=== PATIENT | female | born 1930 | race Caucasian/White ===

== ENCOUNTER 2016-04-22 10:50 | Emergency (ER) | payer MEDICAID, MEDICARE ==
[~2016-04-22 10:50] MED LIST: APIX2.5T PO; METO25TA6 PO; OXYC5TAB72 PO; ROB500 PO; TRIA1CAP5 PO; VITA-251 PO; ZYL100 PO
--- NOTE | 2016-04-22 10:58 | ED.REPORT ---
HPI-General Illness Date of Service Apr 22, 2016 ED Provider: Abdirashid Eisenberg Patient is an 85 year old female who presents to the ED via EMS complaining of shortness of breath. Associated symptoms include cough, decreased appetite, and nausea. She denies fever, abdominal pain, or any other symptoms. She states that she has not had atrial fibrillation for a year but cannot tell when she has afib and when she doesn't. She just got done taking her antibiotics for pneumonia. She did not take her metoprolol this morning. Recently cut her Eliquis dose in half. Nursing Notes Stated Complaint: DECREASED O2 STATS Nursing Notes Reviewed: Yes Allergies: Coded Allergies: amlodipine (Verified Allergy, Severe, PURITIC RASH, 01/11/15) quinapril HCl (Verified Allergy, Severe, 01/11/15) Tetracyclines (Verified Allergy, Unknown, UNKNOWN, 01/11/15) codeine (Verified Allergy, Unknown, 01/11/15) cyclobenzaprine (Verified Allergy, Unknown, UNKNOWN, 01/11/15) fluoxetine (Verified Allergy, Unknown, UNKNOWN, 01/11/15) propoxyphene napsylate (Verified Allergy, Unknown, UNKNOWN, 01/11/15) yellow dye (Verified Allergy, Unknown, UNKNOWN, 01/11/15) Uncoded Allergies: PEANUTS (Allergy, Unknown, UNKNOWN, 05/23/12) QUINIPRIL (Allergy, Unknown, UNKNOWN (ARCELIA INHIBITOR), 05/23/12) NEEDS ANTIBIOTIC PROPHYLAXIS/LIST OF ACCEPTABLE ANESTHESIA (Adverse Reaction, Unknown, IN MEDICAL RECORD CHART, 09/26/04) Scheduled Allopurinol (Allopurinol) 100 Mg Tablet 100 MG PO BID Apixaban (Eliquis) 2.5 Mg Tablet 2.5 MG PO BID Methocarbamol (Methocarbamol) 500 Mg Tablet 1,000 MG PO QID Metoprolol Tartrate (Metoprolol Tartrate) 25 Mg Tablet 25 MG PO BID Triamterene/HCTZ 37.5-25 mg (Triamterene/HCTZ 37.5-25 mg) 1 Each Capsule 1 CAPSULE PO DAILY Vitamin E (Dl,Tocopheryl Acet) (Vitamin E) 1,000 Unit Capsule 2,000 UNIT PO DAILY Scheduled PRN oxyCODONE (oxyCODONE) 5 Mg Tablet 5 MG PO PRN For Pain 1-3 tabs. every 3 hrs PRN pain General Time Seen by MD: 10:57 Chief Complaint Breathing problem Hx Obtained From: Patient Arrived By: Ambulance Past Medical History Past Medical History 1. 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 2. History of paroxysmal atrial fibrillation after porcine aortic valve replacement in 2000, and subsequent episode in 2007 after a flu illness, and now. 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 3. Seasonal allergies. 4. [place] 5. thrombophlebitis Reports: Cancer (Melanoma), Hypertension Reports: Atrial fibrillation, Diverticulitis Past Surgical History 1. Left heart catheterization in 1998, for which she was found to have obstruction in the circumflex and a stent was placed. I do not have further details regarding that. 2. Porcine aortic valve placement in 2000. 3. Appendectomy. 4. x3. 5. Tonsillectomy. 6. Anterior-posterior bladder repair. 7. Laparoscopic cholecystectomy with intraoperative cholangiogram, July 28, 2012. 8. MILO-BSO. 9. Bilateral breast biopsies on May 24, 2012, with the pathology being benign. Reports: Cataract surgery, Hysterectomy Smoking History Former Smoker Social History Drug Use: Denies drug use Review of Systems +decreased appetite Full Review of Systems Constitutional: Denies: Fever Respiratory: Reports: Non-productive cough, Shortness of breath GI: Reports: Nausea, Denies: Abdominal pain Complete sys rev & neg: except as marked. Physical Exam Vital Signs Vital Signs Date Time Temp Pulse Resp B/P Pulse Ox O2 Delivery O2 Flow Rate FiO2 04/22/16 14:17 84 14 99/57 96 Room Air 04/22/16 11:56 83 20 113/57 95 Room Air 04/22/16 11:02 37.5 132 25 110/63 96 Room Air Initial VS: Reviewed Head / Eyes: Atraumatic, Normocephalic Abdomen / GI: Soft, Non-tender Skin: Warm, Dry Neurologic: Alert, Oriented, Nonfocal Psychiatric: Mood/affect normal, Behavior normal, Normal thought content General/Constitutional: Awake, Alert, Well appearing Mouth: Positive: Mucous membranes dry Respiratory / Chest: No respiratory distress Rales bilaterally Heart Rate / Rhythm: Positive: Irreg irregular rhythm, Tachycardia Interpretation & Diagnostics Lab Results Interpretation Result Diagram: 04/22/16 1130 04/22/16 1130 Test 04/22/16 11:30 04/22/16 11:33 04/22/16 14:20 White Blood Count 14.6th/mm3 (3.8-10.1) Red Blood Count 4.25mil/mm3 (3.90-5.20) Hemoglobin 11.2g/dL (12.0-15.6) Hematocrit 35.4% (35.0-46.0) Mean Corpuscular Volume 83.3fL (81-100) Mean Corpuscular Hemoglobin 26.4pg (27.0-35.0) Mean Corpuscular Hemoglobin Concent 31.6% (32.0-37.0) Red Cell Distribution Width 13.6% (12.3-15.4) Platelet Count 572bil/L (150-400) Neutrophils (%) (Auto) 74.0% (40-74) Lymphocytes (%) (Auto) 15.9% (14-46) Monocytes (%) (Auto) 9.1% (4-12) Eosinophils (%) (Auto) 0.3% (0-5) Basophils (%) (Auto) 0.4% (0-3) Sodium Level 139mEq/L (134-144) Potassium Level 4.1mEq/L (3.5-5.2) Chloride Level 98mEq/L (97-108) Carbon Dioxide Level 24mmol/L (18-29) Blood Urea Nitrogen 17mg/dL (8-27) Creatinine 0.76mg/dL (0.57-1.00) Estimat Glomerular Filtration Rate 104mL/min (>59) Glucose Level 132mg/dL (60-99) Lactic Acid Level 1.5mmol/L (0.4-2.0) Calcium Level 9.6mg/dL (8.5-10.1) Magnesium Level 1.7mg/dL (1.6-2.6) Total Bilirubin 0.4mg/dL (0.0-1.2) Aspartate Amino Transf (AST/SGOT) 19U/L (0-50) Alanine Aminotransferase (ALT/SGPT) 10U/L (0-32) Alkaline Phosphatase 96U/L (25-165) Troponin T < 0.010ug/L (0.0-0.011) Pro-B-Type Natriuretic Peptide 1135pg/mL (0-738) Total Protein 7.3g/dL (6.4-8.4) Albumin 3.5g/dL (3.4-5.0) Procalcitonin < 0.05ng/mL (See Comment) Hold Jorge Top Tube Received (Received) Urine Color Yellow (YELLOW) Urine Appearance Hazy (CLEAR,HAZY) Urine pH 6.0 (5.0-8.0) Urine Specific [place] 1.020 (1.003-1.035) Urine Protein Tracemg/dL (NEG,TRACE) Urine Glucose (UA) Negativemg/dL (NEGATIVE) Urine Ketones Negativemg/dL (NEGATIVE) Urine Occult Blood Negative (NEGATIVE) Urine Nitrite Negative (NEGATIVE) Urine Bilirubin Negative (NEGATIVE) Urine Urobilinogen Normalmg/dL (NORMAL) Urine Leukocyte Esterase Negative (NEGATIVE) Urine RBC 0-2/hpf (0-2) Urine WBC 0-5/hpf (0-5) Urine Epithelial Cells Occasional/hpf (NONE-MOD) Urine Crystals None seen (NONE SEEN) Urine Bacteria Few/hpf (NONE-FEW) Urine Hyaline Casts None/lpf (NONE) Urine Granular Casts None seen (NONE SEEN) Urine Waxy Casts None seen (NONE SEEN) Urine Red Blood Cell Casts None seen (NONE SEEN) Urine White Blood Cell Casts None seen (NONE SEEN) Urine Mucus None seen (None Seen) Urine Trichomonas None seen (NONE SEEN) Urine Yeast None (NONE SEEN) Urinalysis Comment None Urine Culture Reflexed Not indicated ECG Interpretation ECG Interpretation: afib with RVR, otherwise morphology same as prior rate 127 Time: 11:14 Interpreted by: ED physician X-Ray Chest Interpretation Chest Xray Interpretation: IMPRESSION: Pneumonia is persisting or a mass lesion is present at the left lung base. CT of the chest is scheduled for today, and will more accurately assess that area. Prior presumed CABG. 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 Dictated by: Chadwick Fountain M.D. on 04/22/2016 at 11:35 Approved by: Chadwick Fountain M.D. on 04/22/2016 at 11:35 View: Portable, 1 view Interpretation / Wet Read by: Interpret - Radiologist CT Chest Interpretation IMPRESSION: Negative for pulmonary embolism. There is a 6 cm mass involving the left lower lobe, which represents metastatic cancer until proven otherwise. Associated enlarged mediastinal lymph nodes are seen. There is a small left-sided pleural effusion. Postoperative change, with aortic valve replacement. Prominent atherosclerotic change is seen of the aorta. Reflux of contrast is seen into the inferior vena cava and hepatic veins. This is commonly observed in patients with congestive heart failure. 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 Eisenberg at 1:20 PM [place] time on April 22, 2016. Dictated by: Krishna Samuels M.D. on 04/22/2016 at 12:23 Approved by: Krishna Samuels M.D. on 04/22/2016 at 12:23 Study type: CT pulm angiogram Interpretation / Wet Read by: Interpret - Radiologist Re-Eval/Medical Decision Med Decision/Clinical Course This patient had 2 problems: Only Persistent episode of rapid A. fib with RVR with associated hypoxia. This was treated with 2 doses of IV metoprolol and now her heart rate has normalized and her oxygen saturation is normal up and walking and she is largely asymptomatic. Additionally she has shortness of breath which is due to a lung cancer without any evidence of pneumonia or other acute infection. She has CHF though there is not evidence of massive edema and again her O2 sat is normal. Ultimately this is a tragic diagnosis however she seems to be discharged. She is discharged to care of family, close follow-up is secured with the PCP tomorrow. Oncology is also made aware of this patient. Return precautions given. Time of Eval: 12:38 Re-Evaluation/Progress Note: Rechecked patient. She states " I normally have low blood pressure as low as the 90's over 70's" and that "I've been going around thinking I'm going to fall on my face" because of her blood pressure medications. She takes triamterene hctz because she has retained fluids since her ehart surgery. Time of Eval: 13:41 Re-Evaluation/Progress Note: Discussed imaging results and options for follow up for cancer care. Discussed plan for a road test. Patient understands and agrees with plan. All questions addressed at this time. Time of Eval: 16:00 Re-Evaluation/Progress Note: Discussed plan for discharge with close follow up. Patient understands and agrees with plan. All questions addressed at this time. Consultation #1: Referral / Consult Name: July Patel MD Call Returned at: 15:57 Mail Service Coordinator: Agrees with eval, Agrees with plan Note: Discussed patient's case and desire for close follow-up. Will get her an appt tomorrow at [facility]. increase metoprolol to 50 mg bid Consultation #2: Referral / Consult Name: Nico Cabral MD Call Returned at: 16:27 Note: Oncology, now aware of patient, Counseled Regarding: Diagnosis, Lab results, Need for follow-up, When/why to return to ED Discharge & Departure Primary Impression: Atrial fibrillation with rapid ventricular response Additional Impression: Lung cancer Disposition: Home Discharge Condition All VS Reviewed: Yes Condition: Stable Additional Instructions: Thank you for entrusting us with your care. Increased you metoprolol dose to 50 mg twice a day. Follow-up with the residency clinic tomorrow. Return to the emergency department if you have any new or worsening symptoms. Referrals: Rock Carlson DO (PCP) [facility] Scribe Attestation Portions of this note were transcribed by Gabriela Schwarz. I, Dr. Eisenberg personally performed the history, physical exam and medical decision-making; I reviewed and confirmed the accuracy of the information in the transcribed note. Signed by: Gabriela Schwarz 04/22/16, 1604 copies to: [facility] Res[facility]; Rock Carlson Timothy S DO Apr 22, 2016 10:58 GABRIELA SCHWARZ Apr 22, 2016 11:21
[2016-04-22 11:02] VITALS: BP 110/63; PULSE 132; RESP 25; O2SAT 96
[2016-04-22] MEDS ORDERED: 0.9% Sodium Chloride 500 ML IV ONE ×2 (11:10→12:35)
[2016-04-22 11:34] LABS: BASOPHILS % (AUTO) 0.4 % (0-3); EOSINOPHILS % (AUTO) 0.3 % (0-5); MONOCYTES % (AUTO) 9.1 % (4-12); Mean Corpuscular Hemoglobin 26.4 pg (27.0-35.0); Mean Corpuscular Volume 83.3 fL (81-100); Platelet Count 572 bil/L (150-400)
[2016-04-22] MEDS: MeTOProlol 1 mg/mL 5 mL Inj IVPUSH SCH ×3 (11:37→13:51)
--- NOTE | 2016-04-22 11:37 | DRSVH ---
PROCEDURE: X-RAY CHEST ONE VIEW, PORTABLE ([id number]) INDICATIONS: cp TECHNIQUE: One view of the chest was acquired. COMPARISON: [facility], CR, XR CHEST 2VW, 01/01/2015, 16:34. [facility], CR , CHEST 1VW (PORTABLE), 08/08/2013, 18:50. [facility], CR, CHEST 1VW (PORTABLE), 3, 17:54. [facility], CR, CHEST 2VW, 01/30/2012, 11:01. [facility], CR, C HEST 1VW (PORTABLE), 10/04/2007, 12:26. [facility], CR, CHEST 2VW, 02/28/2005, 17:55. [facility], CR, CHEST 2VW, 09/19/2006, 17:36. [facility], CR, XR CHEST 2VW, 1 , 9:56. [facility], CR, XR CHEST 2VW, 01/15/2015, 12:20. [facility], CR, XR CHEST 2VW, 01/17/2015, 19:35. [facility], CR, XR CHEST 2VW, 03/29/2016, 16:4 1. FINDINGS: Surgical changes and devices: Sternotomy wires, presumed prior CABG Lungs and pleura: No pleural effusions or pneumothorax. Lungs are abnormal with alveolar infiltrati on or mass at the left lung base present, and this appears somewhat more prominent than on a comparis on study from 03/29/16. Mediastinum: Mediastinal contours appear normal. Heart size is normal. Bones and chest wall: No suspicious bony lesions. A chondroid matrix radiodensity at the proximal h umeral medullary space on the right is present. This has been present for an extended period of time and considering slight differences in rotation does not appear to have changed from 2012. Overlying soft tissues appear unremarkable. IMPRESSION: Pneumonia is persisting or a mass lesion is present at the left lung base. CT of the [address] is scheduled for today, and will more accurately assess that area. Prior presumed CABG. Chondroi d matrix tumor within the proximal right humeral medullary space likely is benign given its apparent stability over time for an extended period of time. Dictated by: Chadwick Fountain M.D. on 04/22/2016 at 11:35 Approved by: Chadwick Fountain M.D. on 04/22/2016 at 11:35
[2016-04-22 11:56] VITALS: BP 113/57; PULSE 83; RESP 20; O2SAT 95
[2016-04-22 12:21] LABS: Magnesium 1.7 mg/dL (1.6-2.6)
[2016-04-22 12:22] LABS: TROPONIN T < 0.010 ug/L (0.0-0.011)
[2016-04-22] MEDS ORDERED: 0.9% Sodium Chloride 1,000 ML IV SCH (12:30)
--- NOTE | 2016-04-22 13:25 | DRSVH ---
PROCEDURE: CT ANGIO CHEST PULMONARY EMBOLISM ([id number]) INDICATIONS: hypoxia TECHNIQUE: After the administration of intravenous contrast, 2 mm thick sections acquired from the pulmonary api sivan to the posterior costophrenic angles. 3-dimensional maximum intensity projection (MIP) coronal a nd sagittal reformats were then acquired through the thorax. For radiation dose reduction, the follo wing was used: automated exposure control, adjustment of mA and/or kV according to patient size. COMPARISON: [facility], MR, THORACIC SPINE W/O CONTRAST, 10/10/2014, 15:39. [facility], CR, XR CHEST 1VW (PORTABLE), 04/22/2016, 11:05. FINDINGS: Image quality: Excellent. Pulmonary arteries: Pulmonary arteries are normal in size, and demonstrate no intraluminal filling d efects to suggest central pulmonary embolism. Lungs and pleura: There is a heterogeneously enhancing mass seen involving the right lower lobe that measures 6 x 3.9 cm in greatest axial dimension. There is a small left-sided pleural effusion seen. No pneumothorax is seen. The right lung appears clear. Mediastinum: Enlarged mediastinal lymph nodes are seen, including a subcarinal lymph node that measu res 4 x 2.6 cm in greatest axial dimension. Enlarged AP window lymph nodes are seen, including a 10 x 18 mm lymph node. Enlarged left perihilar lymph nodes are seen. A group of conglomerated lymph no cora measures 3.2 x 1.8 cm, when measured together. Poststernotomy changes and an aortic valve prosthesis are seen. Heart size is normal, without perica rdial effusion. Thoracic aorta is normal in caliber and enhancement. Prominent calcification can b e seen on the aorta and particularly the aortic arch. Atherosclerotic irregularity is seen throughou t the aorta, although particularly involving the descending thoracic aorta. Esophagus is normal in c aliber. There is a small hiatal hernia. Bones and chest wall: No suspicious bony lesions. There is a presumed enchondroma seen involving th e right proximal humeral shaft. Age-appropriate bony degenerative changes are seen. Ribs and thorac ic spine appear intact throughout. Thyroid gland demonstrates no significant CT abnormality. No axi llary or supraclavicular adenopathy. Abdomen: Reflux of contrast can be seen into the inferior vena cava and into the hepatic veins. Vis ualized upper abdominal solid organs appear normal in the early arterial phase of enhancement. IMPRESSION: Negative for pulmonary embolism. There is a 6 cm mass involving the left lower lobe, which represents metastatic cancer until proven o therwise. Associated enlarged mediastinal lymph nodes are seen. There is a small left-sided pleural effusion. Postoperative change, with aortic valve replacement. Prominent atherosclerotic change is seen of the aorta. Reflux of contrast is seen into the inferior vena cava and hepatic veins. This is commonly observed in patients with congestive heart failure. 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 Eisenberg at 1:20 PM [place] time on April 22, 2016. Dictated by: Krishna Samuels M.D. on 04/22/2016 at 12:23 Approved by: Krishna Samuels M.D. on 04/22/2016 at 12:23
[2016-04-22 14:17] VITALS: BP 99/57; PULSE 84; RESP 14; O2SAT 96
[2016-04-22 15:05] LABS: APPEARANCE,URINE HAZY (CLEAR,HAZY); COLOR,URINE YELLOW (YELLOW); OCCULT BLOOD,URINE NEGATIVE (NEGATIVE); UROBILINOGEN,URINE NORMAL (NORMAL)
[2016-04-22 16:37] VITALS: BP 93/47; PULSE 66; O2SAT 94
[2016-05-10] MEDS ORDERED: LACT1CAP60 PO (12:40)
[2016-05-10] MEDS ORDERED: CHOL200025 PO (12:40)
[2016-05-10] MEDS ORDERED: ESTR1.5T4 PO (12:40)
[2016-05-10] MEDS ORDERED: BETA2500 PO (12:40)
[2016-05-10] MEDS ORDERED: BENZ100C8 PO (12:40)
[2016-05-10] MEDS ORDERED: DIPH25CA6 PO (12:40)
[2016-05-10] MEDS ORDERED: LOV60 SUBQ (15:20)
[2016-05-10] MEDS ORDERED: OXYC5TAB72 PO (15:20)
[2016-05-27] MEDS ORDERED: OXYC1TAB24 PO (08:26)
[2016-06-30] MEDS ORDERED: MAGN400O4 PO (10:02)
[2016-06-30] MEDS ORDERED: NA P133E23 RC (10:02)
[2016-06-30] MEDS ORDERED: BISA-67 PO (10:02)
[2016-06-30] MEDS ORDERED: MORP15TA PO ×2 (10:03→10:38)
[2016-06-30] MEDS ORDERED: ACET325T51 PO (10:03)
[2016-06-30] MEDS ORDERED: ONDA4TAB6 PO (10:03)
== END 2016-04-22 16:06 | disposition home or self-care (01) ==
LOC: EDBD 10:50 → SED 10:50
DX: I48.91 Unspecified atrial fibrillation (principal); C34.90 Malignant neoplasm of unspecified part of unspecified bronchus or lung; I11.9 Hypertensive heart disease without heart failure; I25.2 Old myocardial infarction; Z95.818 Presence of other cardiac implants and grafts; Z87.891 Personal history of nicotine dependence; Z88.1 Allergy status to other antibiotic agents; Z88.5 Allergy status to narcotic agent; Z88.8 Allergy status to other drugs, medicaments and biological substances; Z91.048 Other nonmedicinal substance allergy status
CPT/HCPCS: 71010; 71275; 80053; 81000; 82308; 83605; 83735; 83880; 84484; 85025; 93005; 96374; 96376; 99285; J7030; J7040; Q9967

== ENCOUNTER 2016-06-04 12:13 | Inpatient (IN) | payer MEDICARE, MEDICAID ==
[2016-06-04] VITALS (8 sets, daily range): BP systolic 85–109; BP diastolic 51–60; PULSE 87–126; RESP 16–34; O2SAT 94–98
[~2016-06-04] VITALS: Ht 160 cm; Wt 59.0 kg
[~2016-06-04 12:13] MED LIST changes: +BENZ100C8 PO; +CHOL200025 PO; +ESTR1.5T4 PO; +LACT1CAP60 PO; +OXYC1TAB24 PO; -ROB500 PO; -TRIA1CAP5 PO; -VITA-251 PO; -ZYL100 PO
--- NOTE | 2016-06-04 12:52 | ED.REPORT ---
HPI-Chest Pain 40 and Over Date of Service Jun 04, 2016 ED Provider: Cesar Lyman MD History of Present Illness: There is no template for palpitations, so this template was used. She was noted to be in atrial fibrillation with rapid ventricular response at radiology, and they sent directly to the ED Patient is a 86 year old female w/ a hx of CAD, HTN, advanced cancer in her left lung, atrial fibrillation,and pneumonia who presents to the ED with a productive cough onset 4 days ago. Pt reports that she feels like she's getting a fever and has been coughing up yellow sputum. She has been trying to get on an antibiotic and couldn't locate the antibiotic that cleared her pneumonia up. She has been trying to trace down the medication and claims it was a broad spectrum penicillin. There have been issues getting a hold of the antibiotic at the pharmacy. Patient is very specific about which antibiotics she can and can' t tolerate which is why she requests this specific antibiotic which is an appropriate coverage for pneumonia. Pt had pneumonia in April of this year. She has been allergic to myosins before in the past. She has her prescriptions filled at [facility] pharmacy and Dr. Holly is her doctor. 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 Nursing Notes Stated Complaint: RAPID HEART RATE Chief Complaint: Dysrhythmia/Cardiac Nursing Notes Reviewed: Yes ([place], meds not reconciled - anti-coagulated on apixaban) Allergies: Coded Allergies: amlodipine (Verified Allergy, Severe, PURITIC RASH, 05/17/16) epinephrine (Verified Allergy, Severe, Anaphylaxis, 05/17/16) quinapril HCl (Verified Allergy, Severe, 05/17/16) Tetracyclines (Verified Allergy, Unknown, UNKNOWN, 05/17/16) codeine (Verified Allergy, Unknown, 05/17/16) cyclobenzaprine (Verified Allergy, Unknown, UNKNOWN, 05/17/16) fluoxetine (Verified Allergy, Unknown, UNKNOWN, 05/17/16) propoxyphene napsylate (Verified Allergy, Unknown, UNKNOWN, 05/17/16) yellow dye (Verified Allergy, Unknown, UNKNOWN, 05/17/16) amitriptyline (Verified Adverse Reaction, Unknown, 05/17/16) Activated Lupus symptoms nortriptyline (Verified Adverse Reaction, Unknown, 05/17/16) Triggered Lupus symptoms Uncoded Allergies: QUINIPRIL (Allergy, Unknown, UNKNOWN (ARCELIA INHIBITOR), 05/23/12) NEEDS ANTIBIOTIC PROPHYLAXIS/LIST OF ACCEPTABLE ANESTHESIA (Adverse Reaction, Unknown, IN MEDICAL RECORD CHART, 09/26/04) PEANUTS (Adverse Reaction, Unknown, UNKNOWN, 05/17/16) Throat swelling Scheduled Apixaban (Eliquis) 2.5 Mg Tablet 2.5 MG PO BID Beta-Carotene (Beta Carotene) 25,000 Unit Capsule 25,000 UNIT PO DAILY Cholecalciferol (Vitamin D3) (Vitamin D3) 2,000 Unit Tablet 2,000 UNIT PO DAILY Estropipate (Estropipate) 1.5 Mg Tablet 0.75 MG PO DAILY Metoprolol Tartrate (Metoprolol Tartrate) 25 Mg Tablet 25 MG PO DAILY Scheduled PRN Benzonatate (Benzonatate) 100 Mg Capsule 100 MG PO TID PRN PRN For Cough oxyCODONE-Acetaminophen 5-325 mg (oxyCODONE-Acetaminophen 5-325 mg) 1 Each Tablet 1 TAB PO TID PRN PRN For Pain General Time Seen by MD: 12:39 Chief Complaint Other (productive cough) Hx Obtained From: Patient Arrived By: Walk-in Sudden in Onset?: Yes Onset Occurred: 4 days ago Symptom Duration: Since onset Severity: Current: No pain currently Recent Healthcare: No recent doctor visit, No recent hospitalization Similar Sx Previous: No Past Medical History Past Medical History Notes: Oncologist Dr. Reese Holly Echocardiogram April 2016: EF 55-60%, no focal wall abnormalities, prosthetic aortic valve is well-seated (bioprosthetic porcine valve), right ventricular systolic pressure estimated 27 mmHg and compared to prior echo there has been a decrease in severity of pulmonary hypertension Past Medical History 1. 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 (Currently in remission as of 06/2016) 2. History of paroxysmal atrial fibrillation after porcine aortic valve replacement in 2000, and subsequent episode in 2007 after a flu illness, and now. 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 3. Seasonal allergies. 4. MA 5. 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 Left heart catheterization in 1998, for which she was found to have obstruction in the circumflex and a stent was placed. I do not have further details regarding that. 2. Porcine aortic valve placement in 2000. 3. Appendectomy. 4. x3. 5. Tonsillectomy. 6. Anterior-posterior bladder repair. 7. Laparoscopic cholecystectomy with intraoperative cholangiogram, July 28, 2012. 8. MILO-BSO. 9. Bilateral breast biopsies on May 24, 2012, with the pathology being benign. Reports: Cataract surgery, Hysterectomy Smoking History Former Smoker (quit 1992) Social History Drug Use: Denies drug use Review of Systems Constitutional: Reports: Fever Respiratory: Reports: Prod cough, yellow Complete sys rev & neg: except as marked. Physical Exam Initial Vital Signs Vital Signs (First) Date Time Temp Pulse Resp B/P Pulse Ox O2 Delivery O2 Flow Rate FiO2 06/04/16 12:26 37.3 122 34 108/57 06/04/16 14:10 94 Room Air Initial VS: Reviewed, Vital signs abnormal Head / Eyes: Atraumatic, Normocephalic, PERRL ENT: Mucous membranes moist, Conjunctiva normal, No scleral icterus Neck: Supple, Non-tender, Full range of motion Back: No CVA tenderness Skin: Warm, Dry, No cyanosis Neurologic: Alert, Oriented, Nonfocal Psychiatric: Mood/affect normal, Behavior normal, Normal thought content General/Constitutional: Awake, Alert, Not toxic appearing cachectic but energetic Rales / Rhonchi: Positive: Rhonchi diffuse (refuses nebulizer ) no cough not visibly dyspneic Heart Rate / Rhythm: Positive: Tachycardia Heart Sounds / Murmur: Positive: Murmur present... (II/) mildly hypotensive Abdomen: Atraumatic, Soft, Non-tender, No guarding, No rebound, BS normoactive Lower Extremity / Pelvis / MS: Atraumatic, Inspection NL, Full range of motion , No edema Interpretation & Diagnostics Lab Results Interpretation Result Diagram: 06/04/16 1240 06/04/16 1240 Test 06/04/16 12:40 White Blood Count 14.0th/mm3 (3.8-10.1) Red Blood Count 4.04mil/mm3 (3.90-5.20) Hemoglobin 9.9g/dL (12.0-15.6) Hematocrit 32.2% (35.0-46.0) Mean Corpuscular Volume 79.7fL (81-100) Mean Corpuscular Hemoglobin 24.5pg (27.0-35.0) Mean Corpuscular Hemoglobin Concent 30.7% (32.0-37.0) Red Cell Distribution Width 14.8% (12.3-15.4) Platelet Count 484bil/L (150-400) Neutrophils (%) (Auto) 71.9% (40-74) Lymphocytes (%) (Auto) 14.6% (14-46) Monocytes (%) (Auto) 12.2% (4-12) Eosinophils (%) (Auto) 0.6% (0-5) Basophils (%) (Auto) 0.4% (0-3) D-Dimer 1.1mg/L (<0.50) Sodium Level 135mEq/L (134-144) Potassium Level 3.9mEq/L (3.5-5.2) Chloride Level 93mEq/L (97-108) Carbon Dioxide Level 28mmol/L (18-29) Blood Urea Nitrogen 19mg/dL (8-27) Creatinine 0.58mg/dL (0.57-1.00) Estimat Glomerular Filtration Rate 142mL/min (>59) Glucose Level 110mg/dL (60-99) Calcium Level 9.4mg/dL (8.5-10.1) Total Bilirubin 0.4mg/dL (0.0-1.2) Aspartate Amino Transf (AST/SGOT) 16U/L (0-50) Alanine Aminotransferase (ALT/SGPT) 7U/L (0-32) Alkaline Phosphatase 81U/L (25-165) Troponin T < 0.010ug/L (0.0-0.011) Total Protein 6.7g/dL (6.4-8.4) Albumin 3.1g/dL (3.4-5.0) Procalcitonin 0.08ng/mL (0.00-0.08) Lab Results Interpretation: CBC positive leukocytosis CMP normal D-dimer elevated Troponin negative Blood cultures 2 pending ECG Interpretation ECG Interpretation: probable LVH repolarization overall unchanged to EKG Anterior Q waves Time: 13:10 Interpreted by: ED physician Rhythm / Conduction: Atrial fib with RVR (130) X-Ray Chest Interpretation Chest Xray Interpretation: IMPRESSION: 1. Left pulmonary mass and probable left hilar adenopathy redemonstrated. 2. Stable right humeral lesion. Dictated by: Lilliana Aparicio M.D. on 06/04/2016 at 14:15 Approved by: Lilliana Aparicio M.D. on 06/04/2016 at 14:17 View: Portable Interpretation / Wet Read by: Interpret - Radiologist Re-Eval/Medical Decision Med Decision/Clinical Course This is an 86-year-old female with lung cancer who is sent over from radiology where she showed up for her biopsy of her lung cancer and was found to the complaining of a subjective fever, but also be an atrial fibrillation at a rate of 140 and so was sent to the ED. Patient states that she feels that she has developed a pneumonia, she has developed subjective fever, cough, change in sputum production over the past 3-4 days. She has a chronic cough from her lung cancer but reports this is different and worse-and feels like pneumonia. She is adamant that she feels that she needs to be hospitalized. She is also from the moment I walk in the room very insistent and very specific about the antibiotic that she could be treated with-patient reports a long history of alleged multiple antibiotic intolerances. Denies kathie chest pain, does report some increase in her baseline shortness of breath as well. She is also very concerned as she is hoping the biopsy will help provide information to facilitate the possibility of treatment for cancer-as she is not currently on chemotherapy and is not a candidate for surgical intervention. She claims she was told by the oncologist that if this does not give an option, she may have to be transitioned to hospice-and the patient states she does not want that she does not want to give up yet. Patient does have a history of paroxysmal atrial fibrillation and is on metoprolol and liquids-in the IS been held yesterday and today in light of this scheduled procedure today. Patient does indeed have a cough. She is not febrile for me but has a sense of fever sweats today and yesterday with a subjective sense of fever. She makes a strong argument for infection. She also does have atrial fibrillation rapid ventricular response, and also has a marginal blood pressure in the 90s. She received IV fluids and the pressure improved, received a dose of metoprolol and heart rate improved, and the blood pressure dipped down to the 90s although the patient does not appear toxic or ill-she is quite energetic and njao-mcapufraw-cdpjppia she is cachectic, and seems to be tolerating this mild hypotension well. Her rate improved, but then started to creep back up so received a second 2.5 mg of metoprolol her pressure pressures back into the 90s. At this point she is being admitted. I started her on cefuroxime which is the only antibiotic she states that she can tolerate , which reportedly covers pneumonia. Given the hypotensive-which I suspect is secondary to her chronic valve disease and atrial fibrillation more than anything else, but sepsis is in the differential-as is pulmonary embolus given the patient's setting of malignancy, and being off anticoagulation-0 d-dimer was obtained, and was elevated-at which point a CT Odette was obtained. The CT was negative for PE, but does reveal worsening malignant disease. Patient is admitted clinically improved. Her weight is improved. Her blood pressure remains adequate but on the low end of normal ill car continued monitoring. Source of Hx: Old records Counseled Regarding: Diagnosis, Lab results, Need for admission Discharge & Departure Primary Impression: Pneumonia Pneumonia type: due to unspecified organism Laterality: left Lung location : lower lobe of lung Qualified Code: J18.9 - Pneumonia, unspecified organism Additional Impressions: Lung cancer Laterality: left Lung location: lower lobe of lung Qualified Code: C34.32 - Malignant neoplasm of lower lobe, left bronchus or lung Atrial fibrillation with rapid ventricular response Anticoagulated by anticoagulation treatment Disposition: ADMITTED TO HOSPITAL Discharge Condition All VS Reviewed: Yes Condition: Stable Referrals: Rock Carlson DO (PCP) Crit Care Except Billable Proc Time Spent: 30-74 minutes Services Performed: Patient management by me, Time spent at bedside, Reviewing test results, Reviewing imaging, Discussing patient care, Documentation in record, Time with fam/surrogate Scribe Attestation Portion of this note were transcribed by Bonny Phillips. I, Dr. Lyman, personally performed the history, physical exam, and medical decision-making: I reviewed and confirmed the accuracy for the information in the transcribed note. Signed by: giovanni Bender, 06/04/16 1600 copies to: Rock Carlson Matthew F MD Jun 04, 2016 12:52 Bonny Phillips Jun 04, 2016 13:08
[2016-06-04] MEDS ORDERED: Diltiazem 5 mg/mL 5 mL Inj IVPUSH ONE (13:05)
[2016-06-04] MEDS ORDERED: 0.9% Sodium Chloride 500 ML IV ONE ×2 (13:05→15:25)
[2016-06-04] MEDS ORDERED: MeTOProlol 1 mg/mL 5 mL Inj IVPUSH ONE ×2 (13:05→14:30)
[2016-06-04 13:28] LABS: EOSINOPHILS % (AUTO) 0.6 % (0-5)
[2016-06-04] MEDS ORDERED: Cefuroxime Inj 1,500 MG in Dextrose 5% 100 ML IV ONE (13:35)
[2016-06-04 13:40] LABS: BASOPHILS % (AUTO) 0.4 % (0-3); MONOCYTES % (AUTO) 12.2 % (4-12); Mean Corpuscular Hemoglobin 24.5 pg (27.0-35.0); Mean Corpuscular Volume 79.7 fL (81-100); NEUTROPHILS % (AUTO) 71.9 % (40-74); Platelet Count 484 bil/L (150-400)
[2016-06-04 13:54] LABS: TROPONIN T < 0.010 ug/L (0.0-0.011)
[2016-06-04] MEDS ORDERED: BETA2500 PO (13:54)
[2016-06-04] MEDS ORDERED: Alum-Mag Hydrox-Simeth 30 mL Suspension PO PRN (14:15)
[2016-06-04] MEDS ORDERED: Polyethylene Glycol (PEG) 17 Gm Powder PO PRN (14:15)
--- NOTE | 2016-06-04 14:18 | DRSVH ---
PROCEDURE: X-RAY CHEST ONE VIEW, PORTABLE ([id number]) INDICATIONS: cough, SOB ?fever TECHNIQUE: One view of the chest was acquired. COMPARISON: [facility], CR, XR CHEST 2VW, 06/02/2016, 10:18. FINDINGS: Surgical changes and devices: Patient is status post median sternotomy. Lungs and pleura: Left lower lobe pulmonary mass is similar in size to the study dated 06/02/16. The l eft hilum is a large suggesting hilar adenopathy. Mediastinum: Mediastinal contours appear normal. Heart size is normal. Bones and chest wall: Medullary chondroid lesion is redemonstrated in the superior right humerus. IMPRESSION: 1. Left pulmonary mass and probable left hilar adenopathy redemonstrated. 2. Stable right humeral lesion. Dictated by: Lilliana Aparicio M.D. on 06/04/2016 at 14:15 Approved by: Lilliana Aparicio M.D. on 06/04/2016 at 14:17
--- NOTE | 2016-06-04 15:43 | DRSVH ---
PROCEDURE: CT ANGIO CHEST PULMONARY EMBOLISM ([id number]) INDICATIONS: CP SOB tachycardia TECHNIQUE: After the administration of intravenous contrast, 2 mm thick sections acquired from the pulmonary api sivan to the posterior costophrenic angles. 3-dimensional maximum intensity projection (MIP) coronal a nd sagittal reformats were then acquired through the thorax. For radiation dose reduction, the follo wing was used: automated exposure control, adjustment of mA and/or kV according to patient size. COMPARISON: [facility], CT, CT ANGIO CHEST PE, 04/22/2016, 12:56. FINDINGS: Image quality: Excellent. Pulmonary arteries: Pulmonary arteries are normal in size, and demonstrate no intraluminal filling d efects to suggest central pulmonary embolism. Lungs and pleura: As before, a left lower lobe mass is present, which demonstrates a current maximal diameter of roughly 78 mm, which is increased in size. There is an increased, small to moderate left pleural effusion. Central and peripheral airways are patent. Mediastinum: Heart size is normal, without pericardial effusion. There is calcification of the coron thang vasculature. There is slightly increased, 24 mm short axis left hilar adenopathy. There is increa sed, 32 mm short axis subcarinal adenopathy. Thoracic aorta is normal in caliber and enhancement. Es ophagus is normal in caliber. No change in small hiatal hernia. Bones and chest wall: No suspicious bony lesions. No change in low-grade cartilaginous lesion within the right proximal humerus. Ribs and thoracic spine appear intact throughout. Thyroid gland is matthew sly unremarkable as visualized. No axillary or supraclavicular adenopathy. Abdomen: Visualized upper abdominal solid organs appear normal in the early arterial phase of enhanc ement. IMPRESSION: 1. No pulmonary embolus. 2. Increased left lower lobe malignancy, with increased left hilar and subcarinal lani metastases. 3. No change in small hiatal hernia. 4. Coronary artery disease. 5. No change in right proximal humeral lesion, consistent with a low-grade cartilaginous lesion. Dictated by: Zenon Iverson M.D. on 06/04/2016 at 15:22 Approved by: Zenon Iverson M.D. on 06/04/2016 at 15:26
--- NOTE | 2016-06-04 16:16 | PCM.HPMED ---
Subjective Date of Service Jun 04, 2016 Primary Provider: Admitting Physician: Primary Care Physician: Rock Carlson DO Attending Physician: Chief Complaint: Afib with RVR and coughing History of Present Illness: Barbra Edmonds is a 86 year old female with Coronary artery, Hypertension, Stage 3 Lung cancer, Chronic Atrial fibrillation who presents to [facility] emergency department with a productive cough onset 4 days ago. Patient was scheduled for a repeat CT-guided biopsy of the lung with issue to be sent to pathology. However the patient continued to have worsening coughing and some subjective fever. Also today she was noted to be in Atrial fibrillation with rapid ventricular response and was send to the emergency department for further treatments. Denies any chest pain or palpitations. Pt reports that she feels like she's getting a fever and has been coughing up yellow sputum. She has been coughing for about a month and her oncologist had prescribed cough suppressant and some oxycodone which helps but then recently it is progressively getting worst. Pt had pneumonia in April of this year. Case discussed with Dr Lyman, Cefuroxime initiated (patient specific about this antibiotics) and will be admitted. Rate now well controlled after receiving Metoprolol IV. Review of Systems: Pertinent positives as noted in HPI. All other systems were reviewed and are negative Allergies Coded Allergies: amlodipine (Verified Allergy, Severe, PURITIC RASH, 05/17/16) epinephrine (Verified Allergy, Severe, Anaphylaxis, 05/17/16) quinapril HCl (Verified Allergy, Severe, 05/17/16) Tetracyclines (Verified Allergy, Unknown, UNKNOWN, 05/17/16) codeine (Verified Allergy, Unknown, 05/17/16) cyclobenzaprine (Verified Allergy, Unknown, UNKNOWN, 05/17/16) fluoxetine (Verified Allergy, Unknown, UNKNOWN, 05/17/16) propoxyphene napsylate (Verified Allergy, Unknown, UNKNOWN, 05/17/16) yellow dye (Verified Allergy, Unknown, UNKNOWN, 05/17/16) amitriptyline (Verified Adverse Reaction, Unknown, 05/17/16) Activated Lupus symptoms nortriptyline (Verified Adverse Reaction, Unknown, 05/17/16) Triggered Lupus symptoms Uncoded Allergies: QUINIPRIL (Allergy, Unknown, UNKNOWN (ARCELIA INHIBITOR), 05/23/12) NEEDS ANTIBIOTIC PROPHYLAXIS/LIST OF ACCEPTABLE ANESTHESIA (Adverse Reaction, Unknown, IN MEDICAL RECORD CHART, 6/25/05) PEANUTS (Adverse Reaction, Unknown, UNKNOWN, 05/17/16) Throat swelling Home Medications From [facility], not yet confirmed Barbra Edmonds [id number] 1930 05/31/2016 01:00 PM 04/12 Benadryl Allergy 25 mg tablet Take one tablet once per day orally. benzonatate 100 mg capsule take 1 capsule by oral route 3 times every day as needed for cough beta carotene 25,000 unit capsule 1 capsule 1 time daily Eliquis 2.5 mg tablet take 1 tablet by oral route 2 times every day estropipate 1.5 mg tablet take 1/2 tablet by oral route every day METOPROLOL ER 25MG TAB TAKE ONE TABLET BY MOUTH ONCE DAILY ondansetron 4 mg disintegrating tablet take 1 tablet by oral route every [address] on top of the tongue where they will dissolve, then swallow Percocet take 1 tablet by oral route every 6 hours as needed Vitamin D3 2,000 unit capsule take 1 by Oral route every day PMH Stage III [id number] squamous lung cancer diagnosed from a left lung biopsy dated May 17, 2016. 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 Unfortunately , per my discussion with Pathology on June 02, 2016, insufficient tissue was available to run PD L1, EGFR, ROS and ALK. Clinical staging workup to date has included CT of the chest dated April 22, 2016. This reported a primary lesion in the left lung measuring 6 x 39 mm. Associated left small pleural effusion. Mediastinal adenopathy with the largest measuring 4 x 2.6 cm in the subcarinal station. Atrial fibrillation with a CHADS2 score of 2 currently on apixaban. Pulmonary hypertension with her last echocardiogram dated April 14, 2016 reporting a right ventricular systolic pressure of 27 mmHg. Aortic valve replacement with porcine valve in 2000. Complication due to her SLE. Drug induced SLE in remission since 1996. Presentation was significant with visual changes, pleurisy, heart valve damage. Gout. Hypertension Urinary incontinence Spinal stenosis Coronary artery disease Somatic dysfunction Hypothyroidism Neuropathy . Surgical History 1. Left heart catheterization in 1998, for which she was found to have obstruction in the circumflex and a stent was placed. I do not have further details regarding that. 2. Porcine aortic valve placement in 2000. 3. Appendectomy. 4. x3. 5. Tonsillectomy. 6. Anterior-posterior bladder repair. 7. Laparoscopic cholecystectomy with intraoperative cholangiogram, July 28, 2012. 8. MILO-BSO. 9. Bilateral breast biopsies on May 24, 2012, with the pathology being benign. 10. Recent Lumbar Surgery at [facility] discharged 01/09 Family History Father had Stroke Mother had Uterine cancer, Myocardial infarction Brother had pacemaker due to sick sinus syndrome Social History Hx Alcohol Use: Yes (Rare) Hx Substance Use: No Hx Tobacco Use: Yes Smoking Status: Former Smoker (quit 1992) Living Arrangement: with Family Exam Vital Signs Vital Sign - Last Date Time Temp Pulse Resp B/P Pulse Ox O2 Delivery O2 Flow Rate FiO2 06/04/16 12:26 37.3 122 34 108/57 Exam General: Alert, Oriented X3, Cooperative, No acute Distress Eyes: PERRLA, Scleral Anicteric Mouth: Mouth Normal, Mucous Membranes Moist/[place] Neck: Supple, no Thyromegaly, trachea central. Chest & Lungs: Clear to auscultation & percussion, No adventitious breath sounds, no crackles, no wheeze Cardiovascular: Normal S1, Normal S2, No Murmurs/Rubs/Gallops, Regular Rate/ Rhythm, Murmur, Other (No JVD, no peripheral edema) Pulses: Radial (present and equal), Dorsalis Pedi (present and equal) Abdomen: Soft, Non-tender, Non-distended, Normoactive bowel tones. Musculoskeletal: Unremarkable. Normal range of motion, no swollen or erythematous joints Extremities: No edema, no cyanosis, no clubbing. Skin: No rashes. Warm and dry, no erythematous areas Neurological: Grossly neurologically intact, has generalized weakness, Normal Speech, Sensation Intact Lymphatic: Lymph nodes Cervical and Axillary not palpable. Lab and Diagnostics Labs Laboratory Tests Test 06/04/16 12:40 White Blood Count 14.0th/mm3 (3.8-10.1) Red Blood Count 4.04mil/mm3 (3.90-5.20) Hemoglobin 9.9g/dL (12.0-15.6) Hematocrit 32.2% (35.0-46.0) Mean Corpuscular Volume 79.7fL (81-100) Mean Corpuscular Hemoglobin 24.5pg (27.0-35.0) Mean Corpuscular Hemoglobin Concent 30.7% (32.0-37.0) Red Cell Distribution Width 14.8% (12.3-15.4) Platelet Count 484bil/L (150-400) Neutrophils (%) (Auto) 71.9% (40-74) Lymphocytes (%) (Auto) 14.6% (14-46) Monocytes (%) (Auto) 12.2% (4-12) Eosinophils (%) (Auto) 0.6% (0-5) Basophils (%) (Auto) 0.4% (0-3) D-Dimer 1.1mg/L (<0.50) Sodium Level 135mEq/L (134-144) Potassium Level 3.9mEq/L (3.5-5.2) Chloride Level 93mEq/L (97-108) Carbon Dioxide Level 28mmol/L (18-29) Blood Urea Nitrogen 19mg/dL (8-27) Creatinine 0.58mg/dL (0.57-1.00) Estimat Glomerular Filtration Rate 142mL/min (>59) Glucose Level 110mg/dL (60-99) Calcium Level 9.4mg/dL (8.5-10.1) Total Bilirubin 0.4mg/dL (0.0-1.2) Aspartate Amino Transf (AST/SGOT) 16U/L (0-50) Alanine Aminotransferase (ALT/SGPT) 7U/L (0-32) Alkaline Phosphatase 81U/L (25-165) Troponin T < 0.010ug/L (0.0-0.011) Total Protein 6.7g/dL (6.4-8.4) Albumin 3.1g/dL (3.4-5.0) Microbiology 06/04/16 Blood Culture, Received Pending Result Diagram: 06/04/16 1240 06/04/16 1240 X-Rays, CTs and MRIs X-RAY CHEST ONE VIEW, PORTABLE 06/04/16 IMPRESSION: 1. Left pulmonary mass and probable left hilar adenopathy redemonstrated. 2. Stable right humeral lesion. Dictated by: Lilliana Aparicio M.D. on 06/04/2016 at 14:15 Approved by: Lilliana Aparicio M.D. on 06/04/2016 at 14:17 Assessment & Plan Barbra Edmonds is a 86 year old female with Coronary artery, Hypertension, Stage 3 Lung cancer, Chronic Atrial fibrillation who presents to [facility] emergency department with a productive cough 1. Community Acquired pneumonia. Present on admission Apparently the patient has been coughing for months but is well controlled with her benzonatate and Opioids. However she has leukocytosis and tachycardia which is consistent with pneumonia. The Chest X ray is difficult to read due to her underlying cancer but every thing clinically is point to a pneumonia. - changing from Cefuroxime IV to Ceftriaxone due to unavailability in our pharmacy - Procalcitonin, Blood culture and sputum analysis - consider consult with Dr Almanzar if available 2. Chronic Atrial fibrillation with rapid ventricular response. Present on admission - will likely resume Eliquis as the biopsy will postpone till her current infection is cleared - continue Metoprolol 25 mg daily for rate control - consider a drip if continue to have tachycardia - monitor on telemetry 3. Stage III [id number]-lndi squamous lung cancer Unfortunately the patient has significant comorbidities not a candidate for chemotherapy, radiation or surgery. - I am not sure there is a urgent need for Oncology to see patient in the hospital - follow up with Dr Holly as outpatient 4. Coronary artery disease No anginal equivalent symptoms - consider repeat EKG for any chest pain - Acetaminophen as needed for mild pain/fever/headache - Bowel regimen as needed - Antiemetic as needed Patient admitted under inpatient status with expected length of stay > 2 midnights for severity of present symptoms, complexities of treatment plan and risk for adverse event . Resuscitation Status: CPR: Attempt Resuscitation Gilbert Luke MD Jun 04, 2016 14:22
[2016-06-04] MEDS ORDERED: Cefuroxime Inj 1,500 MG in Dextrose 5% 100 ML IV SCH (16:30)
[2016-06-04] MEDS: MeTOProlol XL 25 mg ER24 Tablet PO SCH (17:12)
[2016-06-04] MEDS: 0.9% Sodium Chloride 1,000 ML IV SCH (17:12)
--- NOTE | 2016-06-04 18:19 | NUR ---
Admit/Service Dog Pt. was admitted from the ER and arrived in room [address] [facility] at ~1530. Pt. upon arrival walked from the bed Pt. was transported in, to the bed in the room and Pt. had a strong steady gait. Pt. blood pressure is hypotensive but Pt. states that is baseline for her. NS running at 100ml/hr. Pt. denies CP, or any other type of pain. Pt. is on 3L NC and is coughing frequently. Pt. states at home she takes oxycodone and benzonatate to help control her coughing once every 8 hours. Pt. also has a service dog with her that her stated he will take home tonight and bring back in the morning. Pt. is on tele and admitted in for pneumonia.
[2016-06-04 18:39] LABS: APPEARANCE,URINE CLEAR (CLEAR,HAZY); COLOR,URINE YELLOW (YELLOW); OCCULT BLOOD,URINE NEGATIVE (NEGATIVE); UROBILINOGEN,URINE NORMAL (NORMAL)
[2016-06-04] MEDS: oxyCODONE-Acetamin 5-325 mg Tablet PO PRN (21:16)
[2016-06-05] VITALS (8 sets, daily range): BP systolic 93–120; BP diastolic 47–62; PULSE 64–97; RESP 16–24; O2SAT 97–99
[2016-06-05] MEDS: 0.9% Sodium Chloride 1,000 ML IV SCH ×2 (01:57→12:53)
[2016-06-05] MEDS: oxyCODONE-Acetamin 5-325 mg Tablet PO PRN ×4 (04:26→22:53)
--- NOTE | 2016-06-05 06:09 | NUR ---
Respiratory Patient appears uncomfortable at start of shift; states that she feels she cannot breathe if she sits back in bed and must lean forward in the bed. Patient assisted to position of comfort; shortness of breath improved after treatment from RT. Patient on 2.5 L O2 via nasal cannula. Benzonatate and Percocet to relieve her persistent cough. Continue to monitor.
[2016-06-05] MEDS ORDERED: cefTRIAXone Inj 2,000 MG in Dextrose 5% Minibag Plus 50 ML IV SCH (08:30)
[2016-06-05] MEDS: MeTOProlol XL 25 mg ER24 Tablet PO SCH (08:58)
[2016-06-05] MEDS ORDERED: Cefepime Inj 2 GM in IV Premix 1 EACH IV SCH (09:20)
--- NOTE | 2016-06-05 09:22 | PCM.PNMED ---
Subjective Date of Service Jun 05, 2016 Subjective She feels a little better today. She is diffusely weak. She has progressive anorexia from her cancer. She has an ongoing cough primarily dry. She is less dyspneic on oxygen. She does not have oxygen at home. No fevers or chills. No abdominal or chest pain. Exam Vital Signs Vital Sign - Last Date Time Temp Pulse Resp B/P Pulse Ox O2 Delivery O2 Flow Rate FiO2 06/05/16 09:07 90 06/05/16 08:22 36.3 18 99/55 99 Nasal Cannula 2.00 Intake and Output 06/04/16 06/04/16 06/05/16 Cumulative From/Thru 15:00 23:00 07:00 06/04/16 12:26 - 06/05/16 06:20 Intake Total 500 ml 150 ml 400 ml 1050 ml Output Total 1 ml 300 ml 301 ml Balance 500 ml 149 ml 100 ml 749 ml Intake Oral 100 ml 400 ml 500 ml IV Total 500 ml 50 ml 550 ml Output Urine Total 1 ml 300 ml 301 ml # Voids 1 1 Exam Alert oriented 3, in no distress. Fluent speech Anicteric sclerae Lungs some scattered rhonchi increased expiratory phase. She has normal rate and effort. Heart is irregular without murmur gallop or rub Abdomen is soft nontender Extremities are free of edema good pedal and radial pulses. Skin is free of rash or lesions. IVs and Medications Medications Reviewed: Medications were reviewed in detail Lab and Diagnostics Result Diagram: 06/04/16 1240 06/04/16 1240 X-Rays, CTs and MRIs X-RAY CHEST ONE VIEW, PORTABLE 06/04/16 IMPRESSION: 1. Left pulmonary mass and probable left hilar adenopathy redemonstrated. 2. Stable right humeral lesion. Dictated by: Lilliana Aparicio M.D. on 06/04/2016 at 14:15 Approved by: Lilliana Aparicio M.D. on 06/04/2016 at 14:17 Assessment & Plan Barbra Edmonds is a 86 year old female with Coronary artery, Hypertension, Stage 3 Lung cancer, Chronic Atrial fibrillation who presents to [facility] emergency department with a productive cough (from H&P) 1. Community Acquired pneumonia. Present on admission Apparently the patient has been coughing for months but is well controlled with her benzonatate and Opioids. However she has leukocytosis and tachycardia which is consistent with pneumonia. The Chest X ray is difficult to read due to her underlying cancer but every thing clinically is point to a pneumonia. - changing from Cefuroxime IV to Ceftriaxone due to unavailability in our pharmacy - Procalcitonin, Blood culture and sputum analysis - consider consult with Dr Almanzar if available Given her allergies I am going to expand this to cefepime. She is not able to take azithromycin. 2. Chronic Atrial fibrillation with rapid ventricular response. Present on admission - will likely resume Eliquis as the biopsy will postpone till her current infection is cleared - continue Metoprolol 25 mg daily for rate control - consider a drip if continue to have tachycardia - monitor on telemetry 3. Stage III ypd-siwys-mayv squamous lung cancer Unfortunately the patient has significant comorbidities not a candidate for chemotherapy, radiation or surgery. - No need for oncology while she is in the hospital. - follow up with Dr Holly as outpatient 4. Coronary artery disease No anginal equivalent symptoms - consider repeat EKG for any chest pain - Acetaminophen as needed for mild pain/fever/headache - Bowel regimen as needed - Antiemetic as needed Patient admitted under inpatient status with expected length of stay > 2 midnights for severity of present symptoms, complexities of treatment plan and risk for adverse event . Pain Evaluation: Adequate Pain Control Resuscitation Status: CPR: Attempt Resuscitation Time spent 30 minutes Jonn Patel MD Jun 05, 2016 09:22
[2016-06-05] MEDS ORDERED: Cefepime Inj 2,000 MG in Dextrose 5% 50 ML IV SCH (09:28)
[2016-06-05] MEDS ORDERED: Cefepime Inj 2,000 MG in Dextrose 5% Minibag Plus 50 ML IV SCH (09:29)
[2016-06-05] MEDS: Cefepime Inj 2,000 MG in Dextrose 5% Minibag Plus 50 ML IV SCH ×2 (13:00→21:39)
--- NOTE | 2016-06-05 18:19 | NUR ---
Cough/anxiety Cardiac: Pt denies CP, Tele: afib 80-90s. Resp: Pt reports "I always feel short of breath". SPO2 99% on 2.5L NC. Tesselon pearls and percocet for cough. Pt reports back pain and throat pain when coughing. GI/: Pt. denies N/V pt having some incontinence with cough. Neuro: A&Ox3, GÓMEZ. Pt has some anxiety, Pt's service dog is at bedside mitigating anxiety with cuteness..
[2016-06-06] VITALS (9 sets, daily range): BP systolic 92–156; BP diastolic 62–74; PULSE 91–121; RESP 16–28; O2SAT 91–99
[2016-06-06] MEDS: 0.9% Sodium Chloride 1,000 ML IV SCH ×3 (01:39→13:22)
[2016-06-06] MEDS: Cefepime Inj 2,000 MG in Dextrose 5% Minibag Plus 50 ML IV SCH ×3 (05:08→20:26)
--- NOTE | 2016-06-06 06:02 | NUR ---
Respiratory/Nausea/Tele Patient on 2.5 L by nasal cannula and maintaining SpO2 > 95%. Continues to report significant shortness of breath with any exertion. Tele: a-fib with rates trending upward through the night into the 110s-120s. Nausea with no vomiting in the speech teacher that resolved with her tessalon and percocet for her cough. Continue to monitor.
[2016-06-06] MEDS: oxyCODONE-Acetamin 5-325 mg Tablet PO PRN ×3 (06:12→21:49)
--- NOTE | 2016-06-06 08:40 | PCM.PNMED ---
Subjective Date of Service Jun 06, 2016 Subjective She is having some nausea and diarrhea from her cefepime. Her abdomen is distended with this where she holds fluid. She would like her Dyazide restarted. Her breathing is a little bit better she still has a productive cough and dyspnea. No fevers or chills. No hematuria. Exam Vital Signs Vital Sign - Last Date Time Temp Pulse Resp B/P Pulse Ox O2 Delivery O2 Flow Rate FiO2 06/06/16 08:07 36.3 96 18 92/62 94 Nasal Cannula 2.50 Intake and Output 06/05/16 06/05/16 06/06/16 Cumulative From/Thru 15:00 23:00 07:00 06/04/16 12:26 - 06/06/16 05:12 Intake Total 1784 ml 1138 ml 3972 ml Output Total 150 ml 600 ml 1051 ml Balance 1634 ml 538 ml 2921 ml Intake Oral 450 ml 200 ml 1150 ml IV Total 1334 ml 938 ml 2822 ml Output Urine Total 150 ml 600 ml 1051 ml # Voids 3 1 5 # Bowel Movements 1 0 1 Exam Alert oriented 3, no distress Anicteric sclera. Lungs are with normal rate and effort. She does have scattered rhonchi and some expiratory wheezing. There is egophony in the left face Heart is regular without murmur gallop or rub. Abdomen is distended but nontender extremities are free of edema with good pedal pulses. No skin rash IVs and Medications Medications Reviewed: Medications were reviewed in detail Lab and Diagnostics Result Diagram: 06/04/16 1240 06/04/16 1240 X-Rays, CTs and MRIs X-RAY CHEST ONE VIEW, PORTABLE 06/04/16 IMPRESSION: 1. Left pulmonary mass and probable left hilar adenopathy redemonstrated. 2. Stable right humeral lesion. Dictated by: Lilliana Aparicio M.D. on 06/04/2016 at 14:15 Approved by: Lilliana Aparicio M.D. on 06/04/2016 at 14:17 Assessment & Plan Barbra Edmonds is a 86 year old female with Coronary artery, Hypertension, Stage 3 Lung cancer, Chronic Atrial fibrillation who presents to [facility] emergency department with a productive cough (from H&P) 1. Community Acquired pneumonia. Present on admission We will continue her current antibiotics. She is on cefepime due to multiple allergies. 2. Chronic Atrial fibrillation with rapid ventricular response. Present on admission. Resolved. -Resume Elocon. - continue Metoprolol 25 mg daily for rate control - consider a drip if continue to have tachycardia - monitor on telemetry 3. Stage III miy-eurgk-jskk squamous lung cancer Unfortunately the patient has significant comorbidities not a candidate for chemotherapy, radiation or surgery. - No need for oncology while she is in the hospital. - follow up with Dr Holly as outpatient 4. Coronary artery disease No anginal equivalent symptoms - consider repeat EKG for any chest pain - Acetaminophen as needed for mild pain/fever/headache - Bowel regimen as needed - Antiemetic as needed Patient admitted under inpatient status with expected length of stay > 2 midnights for severity of present symptoms, complexities of treatment plan and risk for adverse event . Pain Evaluation: Adequate Pain Control Resuscitation Status: CPR: Attempt Resuscitation Time spent 30 minutes Jonn Patel MD Jun 06, 2016 08:40
[2016-06-06] MEDS: MeTOProlol XL 25 mg ER24 Tablet PO SCH (09:56)
[2016-06-06] MEDS: Ondansetron 2 mg/mL 2 mL Inj IVPUSH PRN ×2 (09:56→13:56)
--- NOTE | 2016-06-06 13:47 | NUR ---
[facility] Signed
--- NOTE | 2016-06-06 14:13 | NUR ---
SOCIAL WORK: Initial Assessment Social Work-initial assessment: Data: See initial assessment. EMR Reviewed. Pt is a 86 y/o female who was admitted on 06/04/16 for Pneumonia and Lung Cancer per H&P. Pt's insurance is [employer] and PCP is Rock Flynn MD. Pt's readmission score is 3-high risk. Patient confirmed NOK is Casey Edmonds-[phone], ex-. SW met with patient to discuss discharge planning, SW role explained and initial assessment complete. Pt is alert and oriented x3. Pt resides at home alone in a single level home with three steps to enter where pt remains independent with basic ADLs. Pt uses a cne at baseline and does not drive. Pt has [facility] and no SNF history. Pt has not completed DPOA/ advanced directive and is not interested in information. Pt has no long term care administrator care or VA benefits. Pt's ex-, Casey Edmonds-[phone], has been assisting her at home. Patient plans to discharge home and resume [facility]. Color Stripper gave [facility] access to patient's chart. Pt's NOK to provide transport home at discharge. SW provided phone number and plan on white board in room. SW will continue to follow. Plan:Pt to likely discharge home and resume [facility]. Pt's NOK is supportive. SW will continue to follow. Chris Orona LMSW, JUAN Addendum: 06/06/16 at 1422 by CHRIS ORONA SS Amended: Links added.
--- NOTE | 2016-06-06 15:09 | NUR ---
Evaluation completed. Please go to "Notes" then click on "Assessments and Notes" (bottom left corner of screen). Then select appropriate discipline tab on top of screen.
--- NOTE | 2016-06-06 16:26 | PROG NOTE ---
[address] [address] PROGRESS NOTE PATIENT: JULY WEST : 1930 MR#: [id number] ADMIT: 06/04/2016 JOB ID: [id number] DATE: 06/06/2016 DIAGNOSES: 1. Locally advanced left-sided pulmonary squamous cell carcinoma. 2. Current admission for pneumonia, hypoxemia and atrial fibrillation with rapid ventricular response. HISTORY OF PRESENT ILLNESS: I was contacted by Dr. Zenon Iverson on Tuesday evening. The patient was at diagnostics for 2nd lung biopsy, but found hypoxemic and tachycardic due to atrial fibrillation, and was sent to the ED. Biopsy was canceled. This patient is following with Dr. Holly for a recently diagnosed pulmonary squamous cell carcinoma. She has not started any treatment yet. The baseline PET-CT four days ago shows a T3 N2 disease including a 7.3 cm mass in the left lower lobe associated with hypermetabolic, left hilar and mediastinal adenopathy. There is also a small left pleural effusion. There was a focus of hypermetabolic activity in the right mandibular angle, but there was no evidence of associated bone lesion by accompanying CT scan. She indicates that over the last two months her health has been declining. She has been having persistent cough. Her phlegm is typically yellowish. She has been having subjective fever and has been having different pains. She has had significant weight loss over the last six months. Currently at this admission, she is receiving antibiotic therapy for pneumonia although there is no radiographic evidence of such. A CT chest angiogram is negative for PE and only shows progressive lung cancer. She has been afebrile this admission. Procalcitonin is only borderline at 0.08. Blood cultures have been drawn and remained negative for two days. She is on day two of cefepime. General appearance is an elderly woman, awake, alert and oriented x3, but appears chronically ill and debilitated. She needs assistance sitting up. She appears dyspneic and has an intermittent cough. Blood pressure 126/67, heart rate 108, temperature afebrile, O2 saturation 92% on 2.5 L. LABORATORY DATA: Chemistry is normal. She has leukocytosis with normal differential. Hemoglobin 9.9 and platelet count 484,000. IMPRESSION/RECOMMENDATIONS: I personally do not think this patient has bacterial pneumonia. Her respiratory symptoms are primarily related to progressive lung cancer and uncontrolled atrial fibrillation with rapid ventricular response. She is on anticoagulation therapy with apixaban which should continue. In my opinion, this patient can be discharged no later than tomorrow perhaps with a few-day course of oral antibiotics, and needs close followup with Dr. Holly to start therapy for her lung cancer. I had a long conversation with her and a family member in the room with regards to treatment options for advanced pulmonary squamous cell carcinoma.
--- NOTE | 2016-06-06 19:26 | NUR ---
Confusion/Cough Cardiac: Pt denies CP, Tele Afib 90-100s Resp: Pt reports significant ongoing shortness of breath; SpO2 98% on 2.5L NC. GI/: Stress incontinence with cough. Pt reports nausea this AM, meds delayed until zofran given. Pt reports relief from nausea. Incontinent of diarrhea in brief this AM. Neuro: A&Ox3, GÓMEZ, pt has mild anxiety at times. Increased confusion today, pt's conversation very tangential. Discussed pt's mental status with ex , he agrees that her cognitive status is below her baseline by quite a bit. Dr Patel paged and aware. By end of shift pt was aware that she had had an episode of confusion during the day calling it= "foggy", and was a bit more clear.
[2016-06-07] VITALS (11 sets, daily range): BP systolic 121–158; BP diastolic 43–101; PULSE 101–128; RESP 14–35; O2SAT 94–98
[2016-06-07] MEDS: 0.9% Sodium Chloride 1,000 ML IV SCH ×2 (02:04→13:02)
--- NOTE | 2016-06-07 02:52 | NUR ---
Agitation Patient woke from sleep agitated, confused. Pulling oxygen off, swatting at nursing staff. SpO2 drops to 69% with O2 off; patient's work of breathing appears to have increased since start of shift. O2 turned up to 7L oxymask from 2.5L nasal cannula; SpO2 90%. Continues to attempt to remove oxygen. Provider paged; haldol 0.5 mg IV now and stat ABG.
[2016-06-07] MEDS ORDERED: Haloperidol 5 mg/mL Inj IVPUSH ONE (03:00)
[2016-06-07] MEDS: Cefepime Inj 2,000 MG in Dextrose 5% Minibag Plus 50 ML IV SCH ×3 (05:07→20:00)
--- NOTE | 2016-06-07 05:13 | ABG ---
DateTimeAnalyzed 05:06:00 -_ pH ____7.253 - 7.350 7.450 pCO2 ___63.6__ -mmHg 35.0 45.0 pO2 ___71.7__ -mmHg 69.0 116 HCO3- ___27.1__ -mmol/L 22.0 26.0 ABE ___-0.2__ -mmol/L -2.0 2.0 tHb ____9.3__ -g/dL O2Hb ___92.5__ -% COHb ____1.3__ -% MetHb ____0.8__ -% sO2 ___94.5__ -% FIO2 ___30.0__ -% CPAP ___16.0__ -cmH2O PEEP ___12.0__ -cmH2O Vt __215.0__ -L Drawn By RB - Date/Time Notified____ 05:13:00 -_ Spontaneous_RR ___30.0__ -b/min Oxygen Device 1 ____BIPAP - Notified By RB - Notified Whom SULLENBERGER, HEATH DO - B 750 -mmHg tO2 ___12.1__ -Vol% Jonn test _Positive -
--- NOTE | 2016-06-07 06:00 | NUR ---
BiPAP/CCU Transfer Patient placed on BiPAP at 0400 for PCO2 of 78 and respiratory distress. Repeat ABG at 0500 showed improved values but patient still in moderate distress. Patient transferred to CCU 2019, report given to Danuta VALENTIN.
--- NOTE | 2016-06-07 06:15 | NUR ---
Patient received to room 2018. Patient transferred with her belongings, transfer uneventful. Patient tolerating bipap without difficulty. MD updated, orders received for labs. Bipap settings 21/03, 30%. VSS. Patient oriented to room and updated on plan of care.
[2016-06-07 07:43] LABS: BASOPHILS % (AUTO) 0.2 % (0-3); EOSINOPHILS % (AUTO) 0.1 % (0-5); Mean Corpuscular Hemoglobin 24.3 pg (27.0-35.0); Mean Corpuscular Volume 82.5 fL (81-100); NEUTROPHILS % (AUTO) 85.2 % (40-74); Platelet Count 403 bil/L (150-400)
[2016-06-07 08:30] LABS: Magnesium 1.6 mg/dL (1.6-2.6)
[2016-06-07] MEDS: MeTOProlol XL 25 mg ER24 Tablet PO SCH (08:30)
--- NOTE | 2016-06-07 09:10 | ABG ---
DateTimeAnalyzed 09:04:00 -_ pH ____7.292 - 7.350 7.450 pCO2 ___57.9__ -mmHg 35.0 45.0 pO2 ___74.5__ -mmHg 69.0 116 HCO3- ___27.1__ -mmol/L 22.0 26.0 ABE ____0.5__ -mmol/L -2.0 2.0 tHb ____9.2__ -g/dL O2Hb ___93.2__ -% COHb ____1.5__ -% MetHb ____0.8__ -% sO2 ___95.4__ -% FIO2 ___30.0__ -% Pressure_Support ___16.0__ -cmH2O PEEP ____5.0__ -cmH2O Set_RR ___22.0__ -b/min Vt __354.0__ -L Drawn By jmw - Date/Time Notified____ 09:09:00 -_ Spontaneous_RR ___28.0__ -b/min Oxygen Device 1 ____BIPAP - Notified By jmw - Notified Whom DR KENDREGEN - B 752 -mmHg tO2 ___12.2__ -Vol% Jonn test _Positive -
--- NOTE | 2016-06-07 11:01 | DRSVH ---
PROCEDURE: X-RAY CHEST ONE VIEW, PORTABLE ([id number]) INDICATIONS: pneumonia, lung cancer (squamous cell) TECHNIQUE: One view of the chest was acquired. COMPARISON: [facility], CR, XR CHEST 1VW (PORTABLE), 06/04/2016, 13:20. FINDINGS: Surgical changes and devices: Post median sternotomy. Lungs and pleura: Interval increase in left basilar airspace opacity obscured the previously seen mas s. There are airspace opacities in the right lower lobe. There is likely a small left effusion. No pn eumothorax. Mediastinum: Mediastinal contours appear normal. Heart size is normal. Bones and chest wall: Medullary chondroid lesion redemonstrated in the superior right humerus. IMPRESSION: 1. Lower lobe lung mass not as well seen on today's examination due to interval increased space opaci ty at the left lung base. 2. Airspace opacity in the right lower lobe suspicious for pneumonia. Dictated by: Tk Rose [facility] Interpreted: Imani Rodrigues MD on 06/07/2016 at 10:59 Transcribed by: SARAH on 06/07/2016 at 11:00 Approved by: Imani Rodrigues M.D. on 06/07/2016 at 11:50
--- NOTE | 2016-06-07 14:01 | PCM.PNMED ---
Subjective Date of Service Jun 07, 2016 Subjective 86 year old female admitted for new cough of 1 month duration with yellow sputum and subjective fevers, with lung mass again noted on CT for squamous cell carcinoma of the lung, who has not started treatment, and heme/onc discussing additional biopsy. Overnight the patient had difficulty breathing and early this am she developed worsening respiratory failure, was placed on bipap, and moved to the ICU. She states that she is feeling better now. Still has a cough but without known sputum. Denies fever, chills, or nausea. Feels like she is breathing easier. Discussed plans going forward and whether the patient would like to be intubated should it be required. She states that she would. She would also like CPR and we discussed the probability that if she required CPR then she would likely not leave the hospital again. Exam Vital Signs Vital Sign - Last Date Time Temp Pulse Resp B/P Pulse Ox O2 Delivery O2 Flow Rate FiO2 06/07/16 09:16 117 28 135/92 96 06/07/16 07:39 36.5 BiPAP 30 06/06/16 23:06 3.00 Intake and Output 06/06/16 06/06/16 06/07/16 Cumulative From/Thru 15:00 23:00 07:00 06/04/16 12:26 - 06/07/16 06:28 Intake Total 2230 ml 1266 ml 7468 ml Output Total 700 ml 550 ml 2301 ml Balance 1530 ml 716 ml 5167 ml Intake Oral 900 ml 200 ml 2250 ml IV Total 1330 ml 1066 ml 5218 ml Output Urine Total 700 ml 550 ml 2301 ml # Voids 2 7 # Bowel Movements 2 3 Exam Gen: Pt awake and alert. appears comfortable HEENT: EOMI, PERRLA, no JVD Cardio: irregular; systolic murmur heard best at right sternal border Resp: Mild wheeze on right mid lobe; otherwise clear Abd: no abdominal pain, soft; non-distended Ext: no edema noted; moving all 4 Psych: good mood and appropriate affect Neuro: sensation intact grossly, pupils reactive; moving all 4 extremities skin: no rashes IVs and Medications Medications Reviewed: Medications were reviewed in detail Lab and Diagnostics Result Diagram: 06/07/16 0730 06/07/16 0730 X-Rays, CTs and MRIs X-RAY CHEST ONE VIEW, PORTABLE 06/04/16 IMPRESSION: 1. Left pulmonary mass and probable left hilar adenopathy redemonstrated. 2. Stable right humeral lesion. Dictated by: Lilliana Aparicio M.D. on 06/04/2016 at 14:15 Approved by: Lilliana Aparicio M.D. on 06/04/2016 at 14:17 Assessment & Plan Barbra Edmonds is a 86 year old female with Coronary artery, Hypertension, Stage 3 Lung cancer, Chronic Atrial fibrillation who presents to [facility] emergency department with a productive cough (from H&P) 1. Acute hypercapnic respiratory failure - Pt has progressive hypercapnia/hypoxia likely second to advancement of lung cancer - Was moved to ICU early this am and placed on bipap - Continue with BiPAP for now and consider break today - Pulm consulted this am - Considering Duonebs for wheezing 2. Cough with sputum production; poa; ongoing - Pt was admitted with large mass in left lower lobe and symptoms suggestive of acute cough/sputum production with subjective fever; family says that this has actually been increasing for 2-3 months along with weight loss - Initially thought to be due to CAP and patient has received Cefepime for 3-4 days now - Viral resp PCR is negative; pt afebrile, blood cx negative; procalcitonin negative - Will continue abx today and consider d/c'ing tomorrow - This is likely related to the progression of the patient's lung mass instead or acute infection 3. Stage III [id number] squamous lung cancer - Unfortunately the patient has significant comorbidities not a candidate for chemotherapy, radiation or surgery. - Dr. Marroquin assessed the patient yesterday and will confer with Dr. Holly - Family relates that they were told there may be immuno therapy for pt's cancer , but again, this will be discussed between the oncology team 4. Chronic Atrial fibrillation with rapid ventricular response. Present on admission. ongoing - Rate control is difficult; pt currently around 110 with resp distress - Continue Elocon. - continue Metoprolol 25 mg daily for rate control - monitor on telemetry 5. Coronary artery disease - No anginal equivalent symptoms - consider repeat EKG for any chest pain - Acetaminophen as needed for mild pain/fever/headache - Bowel regimen as needed - Antiemetic as needed Disposition: Pt in ICU; expect 1-2 days there if improvement is seen; plan to have bipap vacation today . Pain Evaluation: Adequate Pain Control GI Prophylaxis: H2 viktoria VTE Prophylaxis: Other (Apixaban) Resuscitation Status: CPR: Attempt Resuscitation Time spent 35 minutes Attending Statement Patient was seen and examined with house staff. Agree with all attached documentation. Kiko Comer DO Jun 07, 2016 09:54 Jonn Patel MD Jun 08, 2016 07:10
--- NOTE | 2016-06-07 14:45 | NUR ---
NUTRITION ASSESSMENT: ASSESS: Pt is an 86yo F admitted for pneumonia and stg 3 lung Ca. Overnight pt was placed on BIPAP and transferred to CCU for respiratory distress. She is on a Heart Healthy diet with variable PO at 0-100% however due to BIPAP she is not able to eat today. Plan is to have BIPAP vacation today and possible transition to oxymask. PMHX: stg 3 lung ca, afib, pulmonary HTN, HTN, CAD LABS: Reviewed. Lineman .48, Glu 118, Alb 2.8 MEDS: Reviewed. haider GI: BMx2 / SKIN: Maximus 14 CURRENT WTS: 62.8kg, BMI 24.5kg/m2 DIET: Heart Healthy, PO 0-100% EST. NEEDS: Kcals: 1570-1885kcal/day (25-30kcal/kg) Pro: 65-95g/day (1.0-1.5g/kg) Fluid: 1570-1885ml/day (1ml/kcal) NUTRITION DIAGNOSIS: 1.) Inadequate oral intake related to respiratory distress as evidence by decreased PO intake as respiratory status decreased, PO 0-100%. NUTRITION INTERVENTION: 1.) Once pt is able to tolerate PO intake will add supplements to tray. MONITOR / EVAL: PO, BIPAP, wt, labs, GI, POC, nutrition status. Will continue to monitor per high nutrition risk guidelines
[2016-06-07] MEDS ORDERED: MeTOProlol 1 mg/mL 5 mL Inj IVPUSH ONE (16:05)
--- NOTE | 2016-06-07 16:23 | CONS ---
[address] [address] CONSULTATION REPORT PATIENT: JULY WEST : 1930 MR#: [id number] ADMIT: 06/04/2016 JOB ID: [id number] DATE OF SERVICE: 06/07/2016 REQUESTING PHYSICIAN: Kiko Comer DO. REASON FOR CONSULTATION: Hypoxemic, hypercarbic respiratory failure. HISTORY OF PRESENT ILLNESS: The patient is an 86-year-old, female who had been admitted three days ago for shortness of breath and productive cough. She apparently worsened last night and required transfer to the intensive care unit where she was treated with BPAP for hypoxemic hypercarbic respiratory failure. 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 Workup to date suggests T3, N2 ,stage III. The pathology was reported as result of a transthoracic needle aspiration biopsy. However, insufficient material for full marker analysis was not available. She was being evaluated for a 2nd needle aspiration biopsy but upon presentation she was short of breath, coughing, and was also in apparently new atrial fibrillation. In any case, she was admitted to the [facility] for respiratory tract infection. The patient indicates to me that she has had a month of cough productive of maybe some yellow phlegm. Describes chills and sweats, possibly fevers, and also a pleuritic-type left lateral lower chest wall pain. In the last week or so, she notes worsening of her symptoms. Also was diagnosed with systemic lupus erythematosus in the . Manifested with visual changes, pleurisy, and heart valve damage. Underwent aortic valve replacement with porcine valve in 2000. Also had a stent placed in the circumflex in 1998. The patient apparently had not had much problem with her lung after control of the lupus. SMOKING HISTORY: The patient smoked up until about 20 years ago. Quit at that time. REVIEW OF SYSTEMS: No headache. No abdominal pain. No peripheral edema. History, review of systems all limited due to the patient's dyspnea and use of BPAP mask, limiting conversation. ALLERGIES: Multiple allergies with antibiotics including TETRACYCLINE. Other allergies include: 1. AMLODIPINE. 2. EPINEPHRINE. 3. QUINAPRIL. 4. CODEINE. 5. CYCLOBENZAPRINE. 6. FLUOXETINE. 7. PROPOXYPHENE. 8. AMITRIPTYLINE. 9. NORTRIPTYLINE. 10. PEANUTS, the latter being manifested by swelling in her throat. HOME MEDICATIONS: (Not confirmed). Include: 1. Benadryl. 2. Benzonatate. 3. Beta-carotene. 4. Eliquis. 5. Estropipate. 6. Metoprolol. 7. Ondansetron. 8. Percocet. 9. Vitamin D3. OBJECTIVE: Temperature 36.5, pulse 100 to about 120. Respiratory rate 35 prior to use of BPAP, now in the mid 20s. Blood pressure 153/66. O2 sat on FiO2 of 0.3. IPAP of 18, EPAP of 12, giving her a tidal volumes of mid 200s, maybe low 300s, and an O2 sat of 97% to 98%. General appearance: No acute distress. Maybe a bit uncomfortable. Certainly hard to understand speech with the BPAP mask. Often defers questions to her son, though answers others of the more interesting variety to her. Eyes: Conjunctivae are pink. Nose and throat could not be examined. Chest: Fair breath sounds bilaterally. Very difficult to auscultate due to the leak around the BPAP mask. Heart: Somewhat irregular. Heart tones seem normal. Abdomen soft. Nondistended. Extremities: No clubbing or cyanosis with the patient receiving supplemental oxygen. LABORATORY VALUES: Of June 04, 2016, show a white count of 14,000, with 71 polymorphonuclears, 14 lymphs, 12 monocytes, no eosinophils. Hemoglobin 9.9 with an MCV of 79.7. Platelet count 484,000. Sodium 135, potassium 3.9, chloride 93, CO2 28, BUN 19, creatinine 0.5, glucose 110, calcium 9.4. Total bilirubin 0.4. AST 16, ALT 7, alkaline phos 81. Troponin T undetectable. Total protein 6.7 with albumin of 3.1. D-dimer 1.1. Sputum Gram stain shows a few polys. A few mixed normal carlitos. Initial growth growing only light growth of normal carlitos. MRSA screen of nasal secretions is negative. Chest x-ray shows status post median sternotomy. Left lower lobe mas. Left hilum enlarged consistent with hilar adenopathy. CT angio with pulmonary embolism protocol shows no intraluminal filling defects to suggest central pulmonary embolism. Left lower lobe mass re-demonstrated with diameter of about 78 mm. Small to moderate size left pleural effusion. Also shows left hilar as well as subcarinal adenopathy of 24 mm and 32 mm respectively. ASSESSMENT: 1. Poorly differentiated squamous cell carcinoma. Workup is proceeding. Apparently needs another biopsy for mutational and marker studies. When that can be accomplished with the patient significantly ill at this point is unclear. I guess the major concern is what treatment options do we have to offer her and can we proceed without further mutation studies to define chemotherapy. 2. Respiratory tract infection. Procalcitonin is relatively normal. May have a viral respiratory tract infection or alternatively this may represent some necrotic material from rapidly progressive squamous cell carcinoma. Will be difficult to tell between the two. For the moment, she is on BPAP. Will need to define goals of therapy, especially in terms of intubation. If this indeed represents progression of her tumor without some type of therapeutic plan, intubation seems rather heroic and futile if no therapy can be formulated. PLAN: 1. Chest x-ray. 2. CBC, diff, platelet count, CMP, mag, phos. 3. Respiratory viral PCR. 4. Repeat chest x-ray. 5. Urine for pneumococcal and Legionella antigen. 6. Vent change. Major problem is not oxygenation but rather ventilation. I think we can decrease the EPAP and concomitantly decrease IPAP to give her a slightly higher tidal volume with a somewhat lower pressure. Settled on a BiPAP of 15, an EPAP of 5, leaving the rate at 22, and FiO2 at 0.3. This resulted in tidal volumes in the high 300s, low 400s at times. On re-evaluation, patient states she was breathing a bit more comfortably. Was able to get some rest. Time spent 40 minutes. Thank you so much, Dr. Comer, for asking us to see this most interesting individual. Will follow her respiratory status closely along with you.
--- NOTE | 2016-06-07 18:32 | NUR ---
CARDIAC/RESPIRATORY Patient's rhythm continues to be AFib in the 120s-150s, but patient states this is normal for her, and she did not receive her PO Metoprolol this morning d/t BIPAP, so single dose of IV Metoprolol 5 mg administered for rate control. Patient continues to be in AFib in 100s-110s. Respiratory status has improved slightly, and patient is currently on 8L OxyMask, rather than BIPAP, and she is tolerating this well w/ SpO2 in high 90s. Will continue to monitor telemetry, vitals and respiratory status.
[2016-06-07] MEDS: oxyCODONE-Acetamin 5-325 mg Tablet PO PRN (19:29)
[2016-06-08] VITALS (10 sets, daily range): BP systolic 107–154; BP diastolic 57–92; PULSE 107–147; RESP 14–31; O2SAT 94–99
[2016-06-08] MEDS: 0.9% Sodium Chloride 1,000 ML IV SCH ×3 (00:44→22:00)
[2016-06-08] MEDS: oxyCODONE-Acetamin 5-325 mg Tablet PO PRN ×4 (02:08→21:16)
[2016-06-08] MEDS: Cefepime Inj 2,000 MG in Dextrose 5% Minibag Plus 50 ML IV SCH ×3 (05:07→20:35)
--- NOTE | 2016-06-08 05:56 | NUR ---
Mentation/Hemodynamics/Pain Patient pleasant this shift, periods of slight confusion at times but re-oriented easily, restless when c/o back pain and Percocet given twice this shift with good pain relief, HR slowly increased from the 110's to the 140's/150's yesterday evening and patient was anxious, RT notified and BiPAP started, patient calmed down and was resting calmly within 30 min, calm and cooperative at this time on BIPAP. BP stable 136/66 and no distress noted, no s/sx of pain while patient is sleeping at this time. Will continue to monitor. Addendum: 06/08/16 at 0602 by HAZEL ALVAREZ RN Amended: Links added.
[2016-06-08] MEDS: MeTOProlol XL 25 mg ER24 Tablet PO SCH (07:34)
--- NOTE | 2016-06-08 11:24 | NUR ---
Palliative Care Palliative Care received verbal order from Dr Garry Arias 06/08/16 to assist with goals of care. Patient is an 86 year old woman with stage 3 lung cancer, CAD, HTN and chronic afib. She presented to the ED with a cough and was admitted 06/04/16 for care of acute hypercapnic respiratory failure and her other significant comorbidities. Patient lives at home alone. Casey Edmonds (ex /friend) [phone] Kati Chaudhry (friend) [phone] Palliative Care to follow. Keli Wright
--- NOTE | 2016-06-08 11:33 | PCM.PNMED ---
Subjective Date of Service Jun 08, 2016 Subjective The patient is an 86-year-old, female who had been admitted on 2016 for SOB and productive cough presumably from respiratory tract infection x one month. She has recently been diagnosed with poorly differentiated squamous cell carcinoma with current workup suggesting T3, N2, stage III. Oncology states that insufficient material for full marker analysis was not available and she is currently being evaluated for a second needle aspiration biopsy. Patient is also been diagnosed with SLE with symptoms of visual changes, pleurisy, valvular heart damage requiring aortic valve replacement 2000. Overnight patient states she slept "okay". She finds the BiPAP mask to be very uncomfortable especially on the bridge of her nose. She still reports chest pain which she describes as noncardiac more of a positional thoracic pain that she cannot get comfortable enough to initiate sleep. She continues to have to sleep in a upright position approximately 45 requiring the use of BiPAP on and off throughout the night. Pt remained in A-fib throughout the night with a rate of 90's to 100's. Denies any current headache, nausea, vomiting, cardiac chest pain, abdominal pain. Exam Vital Signs Vital Sign - Last Date Time Temp Pulse Resp B/P Pulse Ox O2 Delivery O2 Flow Rate FiO2 06/08/16 09:00 130 06/08/16 07:23 Supplement Oxygen 06/08/16 07:23 36.4 14 150/65 99 8.00 06/08/16 04:45 30 Intake and Output 06/07/16 06/07/16 06/08/16 Cumulative From/Thru 15:00 23:00 07:00 06/04/16 12:26 - 06/08/16 05:11 Intake Total 1246 ml 1072 ml 9786 ml Output Total 500 ml 350 ml 3151 ml Balance 746 ml 722 ml 6635 ml Intake Oral 2250 ml IV Total 1246 ml 1072 ml 7536 ml Output Urine Total 500 ml 350 ml 3151 ml # Voids 7 # Bowel Movements 1 0 4 Exam General: Patient sitting up in bed with oxygen mask in place, appropriately interactive - hard to understand speech secondary to oxygen mask in place. HEENT: Normocephalic, atraumatic. External ears without defect. Pupils equal, round, and reactive to light and accommodation. Neck: No jugular venous distension. No bruits. Cardiovascular: Tachycardic rate with irregularly irregular rhythm no murmurs, rubs, or gallops appreciated Pulmonary: Decreased breath sounds bilaterally, poor air movement no crackles or wheezes appreciated. Abdomen: Soft, nontender, nondistended. Extremities: No cyanosis or edema Neurological: Cranial nerves grossly intact Psychiatric: Normal mood and affect. Lab and Diagnostics Result Diagram: 06/07/16 0730 06/07/16 0730 X-Rays, CTs and MRIs X-RAY CHEST ONE VIEW, PORTABLE 06/04/16 IMPRESSION: 1. Left pulmonary mass and probable left hilar adenopathy redemonstrated. 2. Stable right humeral lesion. Dictated by: Lilliana Aparicio M.D. on 06/04/2016 at 14:15 Approved by: Lilliana Aparicio M.D. on 06/04/2016 at 14:17 Assessment & Plan Barbra Edmonds is a 86 year old female with Coronary artery, Hypertension, Stage 3 Lung cancer, Chronic Atrial fibrillation who presents to [facility] emergency department with a productive cough. Today she has been downgraded from ICU as her BiPAP needs have decreased. #. She was admitted for acute hypercapnic respiratory failure most likely secondary to advancement of her stage III lung cancer. - Continue with BiPAP when necessary, high flow oxygen mask. - PT saw patient yesterday reported she was able to sit at the edge of the bed significant desaturations refusing to go further. Further evaluation is pending - Palliative care to see patient today regarding goals of care and we will await their recommendations. #. Cough with sputum production; poa; ongoing - Pt was admitted with large mass in left lower lobe and symptoms suggestive of acute cough/sputum production with subjective fever; family says that this has actually been increasing for 2-3 months along with weight loss. Since initially thought to have been secondary to CPAP and she continues to receive cefepime 2 g every 8hr. - Viral resp PCR is negative; pt afebrile, blood cx negative; procalcitonin negative - This is likely related to the progression of the patient's lung mass instead or acute infection #. Stage III [id number] squamous lung cancer -Patient is reported to have significant comorbidities and is not a candidate for chemotherapy, radiation or surgery. - Dr. Marroquin assessed the patient will confer with Dr. Holly - We will await recommendations GI Prophylaxis: H2 viktoria VTE Prophylaxis: Other (Apixaban) Resuscitation Status: CPR: Attempt Resuscitation Attending Statement The patient was seen and examined together with Dr. Arias on 06/08/2016 and I agree with the history, exam and plan as outlined in the note above. ROMIE ARIAS DO Jun 08, 2016 11:33 Serg Thakkar MD Jun 16, 2016 10:59 - Rate control is difficult; pt currently around 110 with resp distress - Continue Elocon. - continue Metoprolol 25 mg daily for rate control - monitor on telemetry 5. Coronary artery disease - No anginal equivalent symptoms - consider repeat EKG for any chest pain - Acetaminophen as needed for mild pain/fever/headache - Bowel regimen as needed - Antiemetic as needed Disposition: Pt in ICU; expect 1-2 days there if improvement is seen; plan to have bipap vacation today . GI Prophylaxis: H2 viktoria VTE Prophylaxis: Other (Apixaban) Resuscitation Status: CPR: Attempt Resuscitation ROMIE ARIAS DO Jun 08, 2016 11:33
--- NOTE | 2016-06-08 11:50 | PCM.PNMED ---
Subjective Date of Service Jun 08, 2016 Subjective Pt is doing much better this morning off bipap except at night. Eating well. Up and about within her room. Denies ongoing dyspnea. Pt did attest to what sounds like sundowning with either dreams or delirium of doctors telling her she is psychotic. Exam Vital Signs Vital Sign - Last Date Time Temp Pulse Resp B/P Pulse Ox O2 Delivery O2 Flow Rate FiO2 06/08/16 09:00 130 06/08/16 07:23 Supplement Oxygen 06/08/16 07:23 36.4 14 150/65 99 8.00 06/08/16 04:45 30 Intake and Output 06/07/16 06/07/16 06/08/16 Cumulative From/Thru 15:00 23:00 07:00 06/04/16 12:26 - 06/08/16 05:11 Intake Total 1246 ml 1072 ml 9786 ml Output Total 500 ml 350 ml 3151 ml Balance 746 ml 722 ml 6635 ml Intake Oral 2250 ml IV Total 1246 ml 1072 ml 7536 ml Output Urine Total 500 ml 350 ml 3151 ml # Voids 7 # Bowel Movements 1 0 4 Exam Gen: Pt awake and alert. appears comfortable HEENT: EOMI, PERRLA, no JVD Cardio: irregular; systolic murmur heard best at right sternal border Resp: Mild wheeze on right mid lobe; otherwise clear on oxymask Abd: no abdominal pain, soft; non-distended Ext: no edema noted; moving all 4 Psych: good mood and appropriate affect Neuro: sensation intact grossly, pupils reactive; moving all 4 extremities skin: no rashes IVs and Medications Medications Reviewed: Medications were reviewed in detail Lab and Diagnostics Result Diagram: 06/07/16 0730 06/07/16 0730 X-Rays, CTs and MRIs X-RAY CHEST ONE VIEW, PORTABLE 06/04/16 IMPRESSION: 1. Left pulmonary mass and probable left hilar adenopathy redemonstrated. 2. Stable right humeral lesion. Dictated by: Lilliana Aparicio M.D. on 06/04/2016 at 14:15 Approved by: Lilliana Aparicio M.D. on 06/04/2016 at 14:17 Assessment & Plan Barbra Edmonds is a 86 year old female with Coronary artery, Hypertension, Stage 3 Lung cancer, Chronic Atrial fibrillation who presents to [facility] emergency department with a productive cough (from H&P) 1. Acute hypercapnic respiratory failure - Pt has progressive hypercapnia/hypoxia likely second to advancement of lung cancer - Downgraded to PCC today - Continue with BiPAP at night, oxymask during the day. Currently on 10L O2 - Pulm consulted and we appreciate their input 2. Cough with sputum production; poa; resolving - Pt was admitted with large mass in left lower lobe and symptoms suggestive of acute cough/sputum production with subjective fever; family says that this has actually been increasing for 2-3 months along with weight loss - Initially thought to be due to CAP and patient has received Cefepime for 3-4 days now - Viral resp PCR is negative; pt afebrile, blood cx negative; procalcitonin negative - Will continue abx today and consider d/c'ing tomorrow - This is likely related to the progression of the patient's lung mass instead or acute infection 3. Stage III [id number] squamous lung cancer; ongoing - Unfortunately the patient has significant comorbidities not a candidate for chemotherapy, radiation or surgery. - Dr. Marroquin assessed the patient yesterday and will confer with Dr. Holly - Family relates that they were told there may be immuno therapy for pt's cancer , but again, this will be discussed between the oncology team - Palliative to see this morning 4. Chronic Atrial fibrillation with rapid ventricular response. Present on admission. ongoing - Rate control is difficult; pt currently around 110 with resp distress - Continue Elocon. - continue Metoprolol 25 mg daily for rate control - monitor on telemetry 5. Coronary artery disease - No anginal equivalent symptoms - consider repeat EKG for any chest pain 6. /delirium; ongoing - Started seroquel 25mg QHS - Acetaminophen as needed for mild pain/fever/headache - Bowel regimen as needed - Antiemetic as needed Disposition: Pt continues to do well. Palliative care to see patient today. . GI Prophylaxis: H2 viktoria VTE Prophylaxis: Other (Apixaban) Resuscitation Status: CPR: Attempt Resuscitation Time spent 30 minutes Attending Statement Patient seen and examined with housestaff. Agree with all attached documentation. Kiko Comer DO Jun 08, 2016 11:50 Jonn Patel MD Jun 11, 2016 09:56
--- NOTE | 2016-06-08 18:49 | PCM.CONPAL ---
Date of Service Jun 08, 2016 Date of Hospital Admission: Jun 04, 2016 at 14:36 Date of Palliative Consult: Jun 08, 2016 Requesting Provider: ROMIE GAMBOA DO Reason Palliative Care Consult: Goals of Care Discussion Hospital Unit @time of consult: Progressive Care Palliative Care Recommendation Summary of palliative recommendations: -Symptom management (Pain/other) Dyspnea-- reviewed she will need O2 at home Cough-- some concern that this is an obstructive pneumonitis. Goals of care-will need Dr. Holly to assist in determining possibilities. We will need to review the issues of true CPR consequences etc. -DPOA/Advanced Directives/POLST-- will need to complete paperwork prior to discharge -Family/emotional support-she seems to continue to get significant support from her ex- -Spiritual support-definitely has connection with adventist and moravian. Additional Medical Diagnoses with primary management by Hospitalist team include : Pneumonia A. tye with RVR Hypoxia Problems: End of Life Preferences Full code Goals of Nursing Home. She does not identify significant need for assistance Resuscitation Status Resuscitation Status: CPR: Attempt Resuscitation . Symptom management: Anxiety, Dyspnea, Constipation Pt History History of Present Illness Barbra Edmonds is a 86 year old female with Coronary artery, Hypertension, Stage 3 Lung cancer, Chronic Atrial fibrillation who presents to [facility] emergency department with a productive cough onset 4 days ago. Patient has had a 40+ pound weight loss over the past 6 months. She states she was seen at [facility] in January for pneumonia had a cough at that time thought to be aspiration. She has not had baseline shortness of breath orthopnea hemoptysis. End of April she again developed a cough. 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 She had a 4 cm mediastinal adenopathy as well as a 6-7 cm primary left lung mass. She has been seen by Dr. Holly in oncology. There is a plan for a repeat biopsy for more tissue and more phenotype testing but she was too short of breath and coughing when seen in radiology. She was subsequently admitted. She continues to cough up yellow sputum. I believe she was put on azithromycin as an outpatient. She is very specific on any antibiotic she takes stating that she has multiple allergies. Past Medical History Significant PMH Noted: A. 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 Ex smoker 10-15 pack history quit in 1992 Drinks minimal alcohol Social History Occupation: Walked extensively for work for approximately 10 years Family Members Issues: Ex-- Casey Herrera Daughter. July Son Lincoln Lost 1 grownup child to suicide she continues to harbor animosity towards this daughter 2 other children live more distantly Living Situation: Lives independently Spiritual Support Spiritual Support Involved in her adventist Responsive Patient Symptoms Tiredness/Fatigue: Moderate Shortness of Breath: Moderate Palliative Performance Scale PPS Ambulation: Reduced PPS Activity: Unable to do normal job/work PPS Self-Care: Full Self Care PPS Intake: Normal or reduced PPS Conscious Level: Full or confusion Performance Scale: 90% Allergy Allergies Reviewed: Yes Medications Current Medications: Current Medications Quetiapine Fumarate 25 mg HS PO; Start 06/08/16 at 21:00 Scheduled Apixaban (Eliquis) 2.5 Mg Tablet 2.5 MG PO BID Beta-Carotene (Beta Carotene) 25,000 Unit Capsule 25,000 UNIT PO DAILY Cholecalciferol (Vitamin D3) (Vitamin D3) 2,000 Unit Tablet 2,000 UNIT PO DAILY Estropipate (Estropipate) 1.5 Mg Tablet 0.75 MG PO DAILY Metoprolol Tartrate (Metoprolol Tartrate) 25 Mg Tablet 25 MG PO DAILY Scheduled PRN Benzonatate (Benzonatate) 100 Mg Capsule 100 MG PO TID PRN PRN For Cough oxyCODONE-Acetaminophen 5-325 mg (oxyCODONE-Acetaminophen 5-325 mg) 1 Each Tablet 1 TAB PO TID PRN PRN For Pain Objective Findings Exam Vital Sign - Last Date Time Temp Pulse Resp B/P Pulse Ox O2 Delivery O2 Flow Rate FiO2 06/08/16 16:02 36.5 126 28 137/57 94 BiPAP 06/08/16 12:30 8.00 06/08/16 04:45 30 Intake and Output 06/07/16 06/07/16 06/08/16 Cumulative From/Thru 15:00 23:00 07:00 06/04/16 12:26 - 06/08/16 05:11 Intake Total 1246 ml 1072 ml 9786 ml Output Total 500 ml 350 ml 3151 ml Balance 746 ml 722 ml 6635 ml Intake Oral 2250 ml IV Total 1246 ml 1072 ml 7536 ml Output Urine Total 500 ml 350 ml 3151 ml # Voids 7 # Bowel Movements 1 0 4 Objective Frail small appearing somewhat cachectic, very talkative General: Alert/Oriented x3, Other (has some fantastical ideas- she tells stories of having particular thoughts and that they seem to change history) HEENT: PERRLA, EOMI, Scleral Anicteric, Other (extremely senescent sun damaged skin) Heart: Dysrhythmia Present, Tachycardia (atrial fib heart rate in the range of 1:30 to 140) Lungs: Diminished Neuro: Cranial Nerve 3-12 Intact Extremities: No Edema Lab/Diagnostics Lab and Imaging results reviewed in detail in EMR. Patient/Family Conference Members Present Family Members Present Patient Medical Team Members Present? Delisa HERRERA Discussion/Goals of Care Discussion FAMILY UNDERSTANDING OF DISEASE: Reviewed issue of need for further tissue which at this point is unclear whether it is safe to do. Patient continues to have some degree of respiratory distress. She has fair amount of oxygen requirement. She takes her mask off while talking quite casually does not recognize shortness of breath but her O2 sat drops to about 83%. I put her on nasal cannula at approximately 4 L and percent sat returned to approximately 91% . She identifies her ex- daughter July and son Lincoln to be her alternate decision makers-she states this paperwork is done. She continues to want aggressive treatment including CPR and intubation if needed. Reviewed the challenges of that with her frailty undoubted osteoporosis as well as her seemingly rapidly progressive malignancy. Reviewed she can have aggressive care and treatment up to CPR and intubation-but she continues to focus on her chance of in her mind almost a cure. She starts having her fantastical thoughts regarding her malignancy and treatment. We will need to wait for Dr. Holly to return review her course. Unclear if further biopsy is obtainable. This may change his goal for treatment DISEASE PROGRESSION/EVIDENCE OF DECLINE: Significant increase in size of tumor in about 4-6 weeks' time. Patient has a hard time understanding this concept She required BiPAP for acute respiratory distress-she is now worried that that was "too aggressive". Reviewed how aggressive that intubation would be pitched changes the course of conversation SYMPTOM BURDEN: GOALS: HOPES/WORRIES: Palliative Care counselled: Time spent Total time 65 minutes; >50% face to face with patient and/or family, providing counselling regarding plans and recommendations, and in care coordination with his/her medical teams. Majority of this was in discussion with patient. Message left with Dr. Holly's office. Reviewed chart notes including 's and Dr. Thakkar's note. Reviewed case with Dr. Swann in regarding a possibility of biopsy or not I also spent an additional [ ] minutes counseling for advanced care planning with the patient/the patients family/the surrogate decision maker. copies to: Reese Holly DO; Rock Carlson Deborah A MD Jun 08, 2016 18:49
[2016-06-08] MEDS ORDERED: HYDROmorphone 1 mg/mL Inj IVPUSH PRN (21:35)
[2016-06-09] VITALS (10 sets, daily range): BP systolic 83–122; BP diastolic 32–71; PULSE 104–152; RESP 21–34; O2SAT 93–100
[2016-06-09] MEDS: 0.9% Sodium Chloride 1,000 ML IV SCH (04:11)
[2016-06-09] MEDS: Cefepime Inj 2,000 MG in Dextrose 5% Minibag Plus 50 ML IV SCH ×2 (04:39→13:00)
--- NOTE | 2016-06-09 04:50 | NUR ---
Mentation, respiratory, telemetry VS as noted. On Bipap during the evening with sats initially mid 90s on 30% fio2. Became progressively more agitated and confused, frequently pulling off bipap with desats to 89-90%. Percocet given without improvement. Dr Luke notified and ativan 1mg iv given x1. Asleep after ativan but desaturated to 80s on bipap. Suctioned oropharyngeal for small amount thick secretions with oral care. Placed on 5l/nasal canula with sats high 90s at rest. Telemetry 100 at rest to 160s with any activity or agitation.
[2016-06-09 05:00] LABS: Mean Corpuscular Hemoglobin 24.5 pg (27.0-35.0); Mean Corpuscular Volume 80.5 fL (81-100)
[2016-06-09 05:01] LABS: BASOPHILS % (AUTO) 0.6 % (0-3); EOSINOPHILS % (AUTO) 1.9 % (0-5); MONOCYTES % (AUTO) 13.2 % (4-12); NEUTROPHILS % (AUTO) 62.9 % (40-74); Platelet Count 435 bil/L (150-400)
[2016-06-09] MEDS ORDERED: Lactated Ringer's 500 ML IV ONE (07:00)
[2016-06-09] MEDS: MeTOProlol XL 25 mg ER24 Tablet PO SCH (08:30)
--- NOTE | 2016-06-09 09:14 | DRSVH ---
PROCEDURE: X-RAY CHEST ONE VIEW, PORTABLE ([id number]) INDICATIONS: SHORT OF BREATH TECHNIQUE: One view of the chest was acquired. COMPARISON: [facility], CR, XR CHEST 1VW (PORTABLE), 06/07/2016, 10:21. FINDINGS: Surgical changes and devices: Median sternotomy wires. Lungs and pleura: Interstitium is prominent and there has been interval increase in moderate left ple ural effusion as well as mid/basilar air space opacities, left greater than right. Mediastinum: Mediastinal contours appear normal. Heart size is normal. Bones and chest wall: No suspicious bony lesions. Overlying soft tissues appear unremarkable. IMPRESSION: 1. Mild edema is suspected and there has been interval increase in mid/basilar airspace opacities con sistent with worsening patchy pulmonary edema versus aspiration or pneumonia. 2. Increase in size of moderate left pleural effusion and trace right pleural effusion redemonstrated . Dictated by: Tk PADILLA Interpreted: Lilliana Aparicio MD on 06/09/2016 at 9:12 Transcribed by: VIKY on 06/09/2016 at 9:13 Approved by: Lilliana Aparicio M.D. on 06/09/2016 at 16:32
--- NOTE | 2016-06-09 09:22 | ABG ---
DateTimeAnalyzed 09:12:41 -_ pH ____7.294 - pCO2 ___59.9__ -mmHg pO2 ___83.9__ -mmHg HCO3- ___29.1__ -mmol/L ABE ____2.3__ -mmol/L tHb ____9.6__ -g/dL O2Hb ___95.2__ -% COHb ____0.9__ -% MetHb ____0.1__ -% sO2 ___96.2__ -% FIO2 ___40.0__ -% Drawn By as - Date/Time Notified____ 09:21:00 -_ Liter_Flow ____5.00_ -L/min Oxygen Device 1 __CANNULA - Notified By JMW - Notified Whom ___DR LINN - B 759 -mmHg K+ ____3.8__ -mmol/L tO2 ___13.0__ -Vol% Jonn test \\ -
--- NOTE | 2016-06-09 09:50 | PCM.PNMED ---
Subjective Date of Service Jun 09, 2016 Subjective Patient had a rough night with delirium and agitation was refractory to 25 mg of Seroquel. 1 mg of Ativan seemed to subdue the patient and this morning she seems to be groggy and I am a little bit of trouble waking up. She does respond and has open her eyes. She is off BiPAP and was on BiPAP most the night nurse on concern that this could be hypercapnia although the patient is saturating remarkably well on 5 L oxygen mask, which is a big improvement. Exam Vital Signs Vital Sign - Last Date Time Temp Pulse Resp B/P Pulse Ox O2 Delivery O2 Flow Rate FiO2 06/09/16 05:02 36.6 133 24 117/32 93 Nasal Cannula 5.00 06/08/16 20:00 30 Intake and Output 06/08/16 06/08/16 06/09/16 Cumulative From/Thru 15:00 23:00 07:00 06/04/16 12:26 - 06/09/16 06:13 Intake Total 1300 ml 1000 ml 97858 ml Output Total 3151 ml Balance 1300 ml 1000 ml 8935 ml Intake Oral 0 ml 2250 ml IV Total 1300 ml 1000 ml 9836 ml Output Urine Total 3151 ml # Voids 3 10 # Bowel Movements 4 Exam Gen: Pt arousable but not verbal this am HEENT: EOMI, PERRLA, no JVD Cardio: irregular; systolic murmur heard best at right sternal border Resp: transient rhonchi, probably main stem mucus; otherwise clear on oxymask Abd: no abdominal pain, soft; non-distended Ext: no edema noted; moving all 4 Psych: good mood and appropriate affect Neuro: sensation intact grossly, pupils reactive; moving all 4 extremities skin: no rashes IVs and Medications Medications Reviewed: Medications were reviewed in detail Lab and Diagnostics Result Diagram: 06/09/16 0410 06/09/16 0400 X-Rays, CTs and MRIs X-RAY CHEST ONE VIEW, PORTABLE 06/04/16 IMPRESSION: 1. Left pulmonary mass and probable left hilar adenopathy redemonstrated. 2. Stable right humeral lesion. Dictated by: Lilliana Aparicio M.D. on 06/04/2016 at 14:15 Approved by: Lilliana Aparicio M.D. on 06/04/2016 at 14:17 Assessment & Plan Barbra Edmonds is a 86 year old female with Coronary artery, Hypertension, Stage 3 Lung cancer, Chronic Atrial fibrillation who presents to [facility] emergency department with a productive cough (from H&P) 1. Acute hypercapnic respiratory failure; poa; ongoing - Pt has progressive hypercapnia/hypoxia likely second to advancement of lung cancer - Pt off bipap and on 5L oxymask; saturatin improved; mentation worse - Pulm consulted and we appreciate their input - Repeat ABG at 0940 was equivocal to prior gasses and her decreased mentation does not seem to be due to increase hypercarbia - Considering restarting bipap 2. Cough with sputum production; poa; resolving - worsening over the last 2-3 months; most likely not second to pneumonia but rather progression of her tumor; however, procal and wbc increasing - Initially thought to be due to CAP and patient has received Cefepime for 5 days now days now - Viral resp PCR is negative; pt afebrile, blood cx negative; procalcitonin negative but increased - Continue with Cefepime for the time being - CXR does show progression of infiltrate vs edema; repeat tomorrow 3. Stage III [id number] squamous lung cancer; ongoing - Unfortunately the patient has significant comorbidities not a candidate for chemotherapy, radiation or surgery. - Dr. Marroquin assessed the patient yesterday and will confer with Dr. Holly - Family relates that they were told there may be immuno therapy for pt's cancer , but again, this will be discussed between the oncology team - Palliative visited and patient wishes to proceed with full code 4. Chronic Atrial fibrillation with rapid ventricular response. Present on admission. ongoing - Rate control is difficult; pt currently around 110 with resp distress - Continue Elocon. - Increased Metoprolol XL from 25 to 50 as rate has not been controlled - monitor on telemetry 5. Coronary artery disease - No anginal equivalent symptoms - consider repeat EKG for any chest pain 6. owning/delirium/transient encephalopathy; ongoing - Increased Seroquel to 50mg tonight - Ativan on EMR for refractory agitation/delirium although we will want to limit this - Acetaminophen as needed for mild pain/fever/headache - Bowel regimen as needed - Antiemetic as needed Disposition: Would seem the patient is improving but mentation is decreased today. Likely due to ativan overnight. GI Prophylaxis: H2 viktoria VTE Prophylaxis: Other (Apixaban) Resuscitation Status: CPR: Attempt Resuscitation Attending Statement Pt seen and examined by myself and agree with above plan. Kiko Comer DO Jun 09, 2016 09:50 Ariana Aj MD Jun 09, 2016 15:18
--- NOTE | 2016-06-09 11:23 | NUR ---
Evaluation completed. Please go to "Notes" then click on "Assessments and Notes" (bottom left corner of screen). Then select appropriate discipline tab on top of screen.
[2016-06-09] MEDS ORDERED: MeTOProlol 1 mg/mL 5 mL Inj IVPUSH ONE (11:40)
--- NOTE | 2016-06-09 11:46 | NUR ---
NUTRITION FOLLOW-UP: ASSESS: Pt is an 86yo F admitted for pneumonia and stg 3 lung Ca. Pt has been on and off BIPAP. PO intake has been variable due to respiratory status at 0-100% of meals on Heart Healthy diet. PO avg over the last 5 days has been ~35% of meals. ST is to evaluated pt today and made her Strict NPO due to no swallow noted even with max verbal cues. Pt has also been experiencing increased AMS. Pts wt is up ~7kg from admit. PMHX: stg 3 lung ca, afib, pulmonary HTN, HTN, CAD LABS: Reviewed. Glu 124, Alb 2.9 MEDS: Reviewed. zofran GI: BMx1 06/07 SKIN: Maximus 17 CURRENT WTS: 64.9kg, BMI 25.3kg/m2, admit wt 58.9kg. Wt has increased 7kg since admit DIET: NPO per ST. PO 0-100%, PO avg 35% EST. NEEDS: Kcals: 1570-1885kcal/day (25-30kcal/kg) Pro: 65-95g/day (1.0-1.5g/kg) NUTRITION DIAGNOSIS: 1.) Inadequate oral intake related to respiratory distress as evidence by decreased PO intake as respiratory status decreased, PO 0-100%. ---PERSISTS 2.) Chew/swallow difficulty related to AMS and weakness as evidence by need for strict NPO diet order per ST NUTRITION INTERVENTION: 1.) Advance diet per ST 2.) Will monitor NPO status MONITOR / EVAL: NPO, ST, BIPAP, wt, labs, GI, POC, nutrition status. Will continue to monitor per high nutrition risk guidelines
[2016-06-09] MEDS ORDERED: Furosemide 10 mg/mL 4 mL Inj IVPUSH ONE (14:05)
--- NOTE | 2016-06-09 15:20 | DRSVH ---
PROCEDURE: CT BRAIN WITHOUT CONTRAST ([id number]) INDICATIONS: acute encephalopathy TECHNIQUE: Noncontrast 4.5 mm thick angled axial sections acquired from the foramen magnum to the vertex, with c oronal reformats. COMPARISON: [facility], MR, MR BRAIN W&WO CON, 05/18/2016, 10:43. FINDINGS: Image quality: Excellent. CSF spaces: Basal cisterns are patent. No extra-axial fluid collections. The ventricles are symmet mariia in size and shape. Brain: No intracranial bleeds or masses. Chronic right frontal lobe infarct is unchanged. There is cerebral volume loss for age, with resultant ventricular and sulcal prominence. There are periventri cular and deep white matter chronic small vessel ischemic changes. There is intracranial internal ca rotid artery atherosclerosis. Skull and face: Calvarium and visualized facial bones appear intact, without suspicious lesions. Sinuses: Visualized sinuses and mastoids are clear. IMPRESSION: No acute process. Dictated by: Zenon Iverson M.D. on 06/09/2016 at 15:18 Approved by: Zenon Iverson M.D. on 06/09/2016 at 15:18
--- NOTE | 2016-06-09 16:02 | NUR ---
Social Work Note: Continued Discharge Planning Data& Assessment: JOLYNN met with pt and pt ex at bedside to discuss discharge planning. Pt is still not at her baseline mentation but her confusion is decreasing per RN. JOLYNN presented pt and pt ex with SNF list to start reviewing in anticipating of pt requiring SNF at time of discharge. Pt ex- helps caregiver for her at home normally and is her local support. Pt children live [place] of state. JOLYNN left a voicemail with pt daughter Kati, PAOLO, ([phone]) with a request to call SW back to discuss discharge planning. Pt and pt ex deny any other needs at this time. SW phone number provided on pt whiteboard. SW to continue to follow. Plan: Anticipated discharge to SNF when medically ready. SW to follow up with pt family for SNF preference, or pt when mentation improves. SW to continue to follow. MILLICENT Cabrera
--- NOTE | 2016-06-09 16:06 | NUR ---
RENAN Signed MILLICENT Cabrera
--- NOTE | 2016-06-09 16:13 | PCM.PALLBR ---
Palliative Care Recommendation Summary of palliative recommendations: 06/09/16- Patient is too sedated from lorazepam to have conversation today. Reviewed with staff/team re if tap effusion- to check with Dr. Holly re instructions if malignant cells available-instructions for pathology/lab. Suspect obstructive pneumonia due to increasing WBC and poor response to treatment outpt and now inpt. 2 of her children July and Lincoln are her chosen DPOAHC and may be able to help in discussion with her going forward re [facility] For now her goals are to be aggressive and have chemo started. Her ex--Casey Herrera states this is already set up for 1 week from now. -Symptom management (Pain/other) Dyspnea-- reviewed she will need O2 at home Cough-- some concern that this is an obstructive pneumonitis. Goals of care-will need Dr. Holly to assist in determining possibilities. We will need to review the issues of true CPR consequences etc. -DPOA/Advanced Directives/POLST-- will need to complete paperwork prior to discharge -Family/emotional support-she seems to continue to get significant support from her ex- Additional Medical Diagnoses with primary management by Hospitalist team include : Pneumonia A. fib with RVR Hypoxia Problems: End of Life Preferences Full code Goals of [facility]. She does not identify significant need for assistance Resuscitation Status Resuscitation Status: CPR: Attempt Resuscitation Total time 40 minutes; >50% face to face with patient and/or family, providing counselling regarding plans and recommendations, and in care coordination with his/her medical teams. primarily coordination of care I also spent an additional [ ] minutes counseling for advanced care planning with the patient/the patients family/the surrogate decision maker. Palliative Brief Note Date of Service Jun 09, 2016 . Patient had confusion and agitation last evening and was given lorazepam which has left her somnolent most of the day. Discussed with her exhusband at the bedside. He confirms that her children are her DPOAHC. He confirms her desire for aggressive treatment including FULL CODE but reviewed this may not be in her best interest. Sounds like her 1 son and 1 daughter understand this. He states they do not want her to be in pain. Her ex- thinks the discussion will only disturb her. I don't think our discussion disturbed her but she could only reference that she had "" before and survived-that being >40 yrs ago and an allergic rxn and that this is a very different situation. Reviewed case with Dr. Holly who states she can receive chemo without addnal tissue and knowledge of addnal tumor markers. This info would supply likelihood of response/nonresponse to the medication. O: patient very somnolent this AM and early afternoon. Her sats with mask on good in high 90's afib with RVR persisting Maine Owusu MD Jun 09, 2016 16:13
--- NOTE | 2016-06-09 16:33 | PROG NOTE ---
[address] [address] PROGRESS NOTE PATIENT: JULY WEST : 1930 MR#: [id number] ADMIT: 06/04/2016 JOB ID: [id number] DATE: 06/09/2016 LOCATION: [facility] inpatient service SUMMARY: Clinically the patient remain in a state of delirium and agitation. No meaningful communication was gathered from today's visit. 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 If the patient is a suitable candidate for treatment, then she should start immunotherapy with nivolumab despite the absence of PD1 staining with an anticipated response rate of anywhere between 12% to 60%. The patient's criteria for treatment, however, is dependent upon her ability to consent to treatment as well as have a performance status of approximately two. At this time, she has neither. As per my previous clinic notes. She is not a candidate for definitive surgery, chemotherapy, or radiation given the multiple comorbidities and her performance status prior to her hospital admission. After speaking with the resident he does note improvement in her delirium as they withheld any further Seroquel or lorazepam. She had a performance status two prior to her office will admission. The patient has therefore been scheduled for a followup in the clinic on June 16, 2016, to reassess appropriateness for treatment. During the interval we will preauthorize her nivolumab followed by readdressing treatment goals, which in this case are palliative, as well as risks versus benefit, specifically given her multiple comorbidities as well as significant side effects to the immunotherapy with limited reserve.
--- NOTE | 2016-06-09 17:11 | DRSVH ---
[facility] [address] [place] [address] Echocardiogram Report Name: JULY WEST Study Date: 06/09/2016 Height: 63 in Hospital Exam Location: [facility] Weight: 143 lb Gender: Female BSA: 1.7 m2 : 1930 Age: 86 yrs BP: 106/47 mmHg Reason For Study: Dyspnea Ordering Physician: HOSPITALIST [facility] Performed By: Cr Gifford Referring Physician: SUNSHINE NOWAK Interpretation Summary The study quality was technically difficult. The patient was in atrial fibrillation with rapid ventricular response during the exam with a heart rate exceeding 100 bpm. The heart rate ranged between 122-151 bpm during the study. The left ventricular cavity is small. The left ventricle is borderline hyperdynamic. The ejection fraction is estimated to be 70-75%. LVEF is more hyperdynamic. The right ventricle grossly appears normal in size with probable normal systolic function. The IVC is dilated (diameter is greater than 2.1 cm) and it collapses less than 50% with a sniff. This suggests a high right atrial pressure of 15 mm Hg. There are large-sized bilateral pleural effusions noted. There is a bioprosthetic aortic valve. The gradients through the prosthetic aortic valve are grossly normal and within the normal range for this type of valve. No significant aortic regurgitation was visualized. No significant changes since prior study. Procedure: A two-dimensional transthoracic echocardiogram with color flow and Doppler was performed. The study quality was technically difficult. Comparison is made with the echocardiogram of 04/14/16. The patient was in atrial fibrillation with rapid ventricular response during the exam with a heart rate exceeding 100 bpm. The heart rate ranged between 122-151 bpm during the study. Left Ventricle: The left ventricular cavity is small. There is mild concentric left ventricular hypertrophy. The left ventricle is borderline hyperdynamic. The ejection fraction is estimated to be 70-75%. Diastolic function could not be accurately assessed due to atrial fibrillation. Right Ventricle: The right ventricle grossly appears normal in size with probable normal systolic function. Atria: The left atrium is not well visualized. Right atrium not well visualized. There is no Doppler evidence for an interatrial shunt. Mitral Valve: The mitral valve leaflets appear mildly thickened, but open well. There is moderate mitral annular calcification. There is trace mitral regurgitation. Aortic Valve: There is a bioprosthetic aortic valve. The gradients through the prosthetic aortic valve are within the normal range for this type of valve. AV velocity could not be obtained with pedoff due to patient movement. Peak velocity was 2.0 m/s on previous exam. There is trace aortic regurgitation. Tricuspid Valve: The tricuspid valve is not well visualized, but is grossly normal. There is moderate tricuspid regurgitation. Subcostal images demonstrate atleast moderate TR. The right ventricular systolic pressure is estimated at 51 mmHg assuming a right atrial pressure of 15 mm Hg. Pulmonic Valve: The pulmonic valve leaflets are thin and pliable; valve motion is normal. There is trace pulmonic regurgitation. Great Vessels: The aortic root is normal size. The dimensions of the ascending aorta are normal. The pulmonary artery is not well visualized, but is probably normal size. The IVC is dilated (diameter is greater than 2.1 cm) and it collapses less than 50% with a sniff. This suggests a high right atrial pressure of 15 mm Hg. Pericardium/ Pleura There is a trivial pericardial effusion noted. There are large-sized bilateral pleural effusions noted. MMode/2D Measurements & Calculations LVIDd: 3.0 cm IVC diam LVOT diam LV voss. diameter/BSA LVIDs: 2.1 cm : 2.3 cm (cm/m^2): 1.8 FS: 29.7 % asc Aorta EPSS: 0.21 cm Diam: 3.2 cm IVSd: 1.1 cm LVPWd: 1.2 cm LV sys. diameter/BSA (cm/m^2): 1.2 Doppler Measurements & Calculations Ao V2 max MV E max munir TR max munir Ao V2 mean : 228.8 cm/sec : 135.7 cm/sec : 297.5 cm/sec : 143.4 cm/sec Ao max PG TR max P.5 mmHg Ao V2 VTI : 21.0 mmHg PA V2 max: 101.9 cm/sec Ao mean PG PA mean P.2 mmHg JAX(V,D) LVOT Max Munir : 0.89 2m : 84.7 cm/sec JAX(I,D): 1.1 cm sev ratio LV V1 max PG PA V2 mean JAX indexed to BSA : 70.4 cm/sec (cm^2/m^2): 0.63 LV V1 VTI : 14.2 cm Reading Physician:GIRISH
[2016-06-09] MEDS ORDERED: Esmolol 2,500 mg/250 mL NS 2,500,000 MCG in IV Premix 1 EACH IV SCH (17:40)
[2016-06-09] MEDS ORDERED: Digoxin 0.25 mg/mL 2 mL Inj IV PRN ×2 (18:05→21:05)
[2016-06-09] MEDS ORDERED: Piper-Tazo 3.375 Gm/50 mL D5W Minibag Plus - Q8H over 4 hrs IV ONE ×2 (18:30)
--- NOTE | 2016-06-09 19:03 | NUR ---
TELE/Hypotension Pt Afib low 100s-120s at rest, however up to 160 with anxiety. Pt also Hypotensive during day shift with SBP in the 60s and DBP in the 40s. Pt Asymptomatic, denied being dizziness or feeling faint, 500ml LR bolus given in the morning, however pt sustaining hypotension through the day. Esmolol drip ordered for high HR at the end of the day however stopped of MD made aware BP 67/44. Will report to oncoming RN.
[2016-06-09] MEDS ORDERED: Digoxin 0.25 mg/mL 2 mL Inj IV ONE (20:50)
--- NOTE | 2016-06-09 22:24 | NUR ---
tachycardia/hypotension pts tele AFIB rate 120-150s and pts SBP dropping to 70-80s, called MD received order for OT dose of 0.25 IV digoxin gave with good effect, pts HR 100s and SBP mid 90s-100s, pt resting in room
[2016-06-10] VITALS (13 sets, daily range): BP systolic 80–154; BP diastolic 40–97; PULSE 76–141; RESP 16–25; O2SAT 92–99
[2016-06-10] MEDS: Piperacillin-Tazo 3.375 Gm Inj 3.375 GM in Dextrose 5% Minibag Plus 50 ML IV SCH ×4 (00:09→23:59)
--- NOTE | 2016-06-10 00:40 | NUR ---
Blood pressure Pt's BP was 106/54. One hour later (now) it is 80/50. HR 98 Pt is asymptomatic. Will cont to monitor
[2016-06-10 02:40] LABS: BASOPHILS % (AUTO) 0.6 % (0-3); EOSINOPHILS % (AUTO) 0.9 % (0-5); MONOCYTES % (AUTO) 11.5 % (4-12); Mean Corpuscular Hemoglobin 24.4 pg (27.0-35.0); Mean Corpuscular Volume 81.3 fL (81-100); NEUTROPHILS % (AUTO) 76.9 % (40-74); Platelet Count 447 bil/L (150-400)
[2016-06-10 03:30] LABS: Magnesium 1.5 mg/dL (1.6-2.6); TROPONIN T 0.01 ug/L (0.0-0.011)
[2016-06-10] MEDS ORDERED: Magnesium Sulf 4 Gm/100 mL H2O 4 GM in IV Premix 1 EACH IV ONE (08:05)
[2016-06-10] MEDS ORDERED: KCl 40 mEq/100 mL (CENTRAL) 40 MEQ in IV Premix 1 EACH IV ONE (08:05)
[2016-06-10] MEDS ORDERED: Potassium Phos (mEq) Inj 40 MEQ in Dextrose 5% 500 ML IV ONE (08:20)
[2016-06-10] MEDS: MeTOProlol XL 25 mg ER24 Tablet PO SCH ×2 (08:22→11:18)
[2016-06-10] MEDS: Ondansetron 2 mg/mL 2 mL Inj IVPUSH PRN (08:42)
--- NOTE | 2016-06-10 10:00 | DRSVH ---
PROCEDURE: X-RAY CHEST ONE VIEW, PORTABLE ([id number]) INDICATIONS: 86 year-old female with left lower lobe non-small cell carcinoma, shortness of breath. TECHNIQUE: One view of the chest was acquired. COMPARISON: [facility], [place], PET NECK TO MID THIGH STD, 06/02/2016, 14:00. [facility], [place], XR CHEST 1VW (PORTABLE), 06/09/2016, 5:25. [facility], [place], XR CHEST 1VW (PO RTABLE), 06/07/2016, 10:21. [facility], [place], XR CHEST 1VW (PORTABLE), 06/04/2016, 13:20. FINDINGS: Surgical changes and devices: Patient is status post median sternotomy. Lungs and pleura: No pleural effusions or pneumothorax. Moderate dependent left pleural effusion per sists, along with confluent retrocardiac opacity. No pneumothorax. Right lung appears clear. Mediastinum: Mediastinal contours appear normal. Cardiac silhouette is partially obscured by left pl eural effusion. There is aortic atherosclerosis. Bones and chest wall: No suspicious bony lesions. Heavily calcified proximal right humeral enchondr patricia is again noted, demonstrating no suspicious hypermetabolic activity on the comparison PET scan. O verlying soft tissues appear unremarkable. IMPRESSION: Persistent moderate dependent left pleural effusion with presumed compressive atelectasis obscures th e known left lower lobe mass. Dictated by: Alphonse Miller M.D. on 06/10/2016 at 9:55 Approved by: Alphonse Miller M.D. on 06/10/2016 at 9:58
--- NOTE | 2016-06-10 10:59 | PROG NOTE ---
[address] [address] PROGRESS NOTE PATIENT: JULY WEST : 1930 MR#: [id number] ADMIT: 06/04/2016 JOB ID: [id number] DATE: 06/10/2016 PULMONARY FOLLOWUP NOTE: PROBLEM: 1. Bronchogenic carcinoma. 2. Bilateral pleural effusion left much greater than right. 3. Hypoxemic hypercarbic respiratory failure, improved. 4. Respiratory tract infection. SUBJECTIVE: The patient indicates her breathing is doing somewhat better. Has some cough. States is productive of phlegm but unable to describe the color or consistency of the phlegm. OxyMask is hurting her nose in the previous skin injury due to BiPAP. Complains of some pain. Points to her throat area. Conveys the feeling that this is somewhat of a generalized discomfort. OBJECTIVE: Temperature 36.6. Pulse low 100s, currently at 116. Respiratory rate at 22 to 25, blood pressure 119/70, O2 sat on OxyMask 4 L was 95%. Currently on OxyMask 1 L running at about 94%. General appearance: In no acute distress. However, looks frail and weak. Mental status: Oriented to person. Knows she is in the hospital but the name of the hospital or where it is. Not oriented to time. Thinks the year is 1916. Does not know the president. No chest wall pain. Fair breath sounds bilaterally. Bronchial quality to the breath sounds in the lower right lung whereas it extends up to the left mid and maybe even a bit higher. Crackles on the right mid lung and left apex. Relatively clear at the right apex. No use of accessory muscles. Heart: Irregular rhythm. Heart tones seem normal. Abdomen is soft. Nondistended. Some diffuse tenderness, though I think a bit more in maybe the left upper quadrant, though hard to tell. She does note sort of diffuse abdominal discomfort. Extremities: No pretibial edema. Has a small, maybe 1 cm clotted skin defect absence of skin with about a 2 cm surrounding erythema with mild edema. LABORATORY STUDIES: White cell count is 12,700, with 76 polymorphonuclears, 9 lymphs, 11 monocytes. Hemoglobin stable at 9.4. Platelet count stable at 447,000. Sodium 141, potassium 3, chloride 97, CO2 is 31, BUN 13, creatinine 0.5, glucose 99. Lactic acid 1.1. Calcium 9.3, phosphorus 2, magnesium 1.5. Total bilirubin 0.3, AST 17, ALT 10, alkaline phos normal at 77. Total protein 5.7, albumin 2.8. Procalcitonin 0.09. IMAGING: Chest x-ray shows dense opacifications in lower 2/3 of the left lung with what appears to be a fluid level with some infiltrates superior to the meniscus. Right base shows some flattening of the diaphragm suggesting a right lower lobe infiltrate. Seems improved from previous films. ASSESSMENT: 1. Delirium. May be a little bit better according to the some examiners. Certainly, she is pleasant enough but certainly not oriented to place and time. Does have some reasonable function when confronted with the concrete situations. 2. Dermal irritation of the nose. Initiated by the BiPAP mask. I would think the OxyMask is also causing some abrasive injury, as it keeps sliding down and she has to keep pushing it up. I think, given her relatively low oxygen requirement, she can get by without using the mask but rather substituting nasal cannula. 3. Pleural effusion. May need tapping. Unfortunately, the patient is on Eliquis and continues to be so. Might consider utilizing a short-acting anticoagulant perhaps subcu heparin or even Lovenox, so that if procedures need to be done, they can be accomplished relatively expeditiously as one has to wait about 2-1/2 to 3 days before safely intervening after Eliquis has been discontinued. 4. Atrial fibrillation. Doing fairly well with the digoxin. Ventricular rate down around 100. Suspect that with exertion it would get worse but she is rather sedentary at this point. 5. Bronchogenic carcinoma. My understanding of the plan is to improve her condition such that she could qualify for outpatient chemotherapy. Not sure whether that will entail thoracentesis or not.
--- NOTE | 2016-06-10 11:14 | PCM.PNMED ---
Subjective Date of Service Jun 10, 2016 Subjective Overnight the patient did very well and appeared to be coming more cognizant. She did not require Seroquel and she was not given any additional psychiatric medications. She is still having some issues with orientation which is still likely from the Ativan at night. Discussed with staff about the patient not having any additional benzos. Patient is becoming more oriented as the day progresses. Currently failing swallow eval. Patient denies pain. Exam Vital Signs Vital Sign - Last Date Time Temp Pulse Resp B/P Pulse Ox O2 Delivery O2 Flow Rate FiO2 06/10/16 06:15 115 06/10/16 03:42 36.5 22 95/40 99 Nasal Cannula 5.00 06/08/16 20:00 30 Intake and Output 06/09/16 06/09/16 06/10/16 Cumulative From/Thru 15:00 23:00 07:00 06/04/16 12:26 - 06/10/16 05:56 Intake Total 335 ml 130 ml 25713 ml Output Total 3151 ml Balance 335 ml 130 ml 9400 ml Intake Oral 0 ml 2250 ml IV Total 335 ml 130 ml 63855 ml Output Urine Total 3151 ml # Voids 2 5 17 # Bowel Movements 4 Exam Gen: Pt arousable and verbal this am HEENT: EOMI, PERRLA, no JVD Cardio: irregular; systolic murmur heard best at right sternal border; rate is between 100-125 Resp: transient rhonchi, probably main stem mucus; breathing through her mouth on room air. Abd: no abdominal pain, soft; non-distended Ext: no edema noted; moving all 4 Psych: good mood and appropriate affect Neuro: sensation intact grossly, pupils reactive; moving all 4 extremities skin: no rashes IVs and Medications Medications Reviewed: Medications were reviewed in detail Lab and Diagnostics Result Diagram: 06/10/16 0230 06/10/16 0230 X-Rays, CTs and MRIs X-RAY CHEST ONE VIEW, PORTABLE 06/04/16 IMPRESSION: 1. Left pulmonary mass and probable left hilar adenopathy redemonstrated. 2. Stable right humeral lesion. Dictated by: Lilliana Aparicio M.D. on 06/04/2016 at 14:15 Approved by: Lilliana Aparicio M.D. on 06/04/2016 at 14:17 Cardiac Echo Impressions Interpretation Summary The study quality was technically difficult. The patient was in atrial fibrillation with rapid ventricular response during the exam with a heart rate exceeding 100 bpm. The heart rate ranged between 122-151 bpm during the study. The left ventricular cavity is small. The left ventricle is borderline hyperdynamic. The ejection fraction is estimated to be 70-75%. LVEF is more hyperdynamic. The right ventricle grossly appears normal in size with probable normal systolic function. The IVC is dilated (diameter is greater than 2.1 cm) and it collapses less than 50% with a sniff. This suggests a high right atrial pressure of 15 mm Hg. There are large-sized bilateral pleural effusions noted. There is a bioprosthetic aortic valve. The gradients through the prosthetic aortic valve are grossly normal and within the normal range for this type of valve. No significant aortic regurgitation was visualized. No significant changes since prior study. Read by Dr. Mcclendon 06/09/16 at 15:57 Assessment & Plan Barbra Edmonds is a 86 year old female with Coronary artery, Hypertension, Stage 3 Lung cancer, Chronic Atrial fibrillation who presents to [facility] emergency department with a productive cough 1. Acute hypercapnic respiratory failure; poa; ongoing - Pt has progressive hypercapnia/hypoxia likely second to advancement of lung cancer - ABG yesterday was equivocal to prior. - Patient weaned down on oxygen this morning doing well on room air with occasional nasal cannula 1 L. - BiPAP as needed at night - O2 sats to be kept between 88 and 92% 2. Cough with sputum production; poa; resolving - worsening over the last 2-3 months; most likely not second to pneumonia but rather progression of her tumor; however, procal and wbc increasing - Initially thought to be due to CAP and patient has received Cefepime for 5 days now days now - Viral resp PCR is negative; pt afebrile, blood cx negative; procalcitonin negative but increased - Change antibiotic weight yesterday evening from cefepime to Zosyn every 8 hours - Left pleural effusion is obscuring the left lung mass that appears to be somewhat stable. The right lung was clear this morning. We will continue to follow with CXR 3. Stage III [id number] squamous lung cancer; ongoing - Unfortunately the patient has significant comorbidities not a candidate for chemotherapy, radiation or surgery. - Dr. Marroquin assessed the patient yesterday and will confer with Dr. Holly - Family relates that they were told there may be immuno therapy for pt's cancer , but again, this will be discussed between the oncology team - Palliative visited and patient wishes to proceed with full code 4. Chronic Atrial fibrillation with rapid ventricular response. Present on admission. ongoing - Rate control is difficult; pt currently around 110 with resp distress - Continue Elocon. - Increased Metoprolol XL from 25 to 50 as rate has not been controlled; patient has been nothing by mouth - monitor on telemetry - Digoxin was used last night symptoms are controlled her rate. This morning her rate is 100-125 bpm. Once able to take by mouth meds will restart metoprolol pending blood pressure. 5. Iron deficiency anemia, chronic; present on admission; stable - Hgb around 9 - Iron replacement once able to take PO 6. Coronary artery disease - No anginal equivalent symptoms - consider repeat EKG for any chest pain 7. owning/delirium/transient encephalopathy; ongoing - Increased Seroquel to 50mg tonight - Ativan on EMR for refractory agitation/delirium although we will want to limit this 8. Bilateral pleural effusions; ongoing - Discussed case with pulmonology as patient is improving and has a known lung tumor, need for thoracentesis as questionable - No acute drop in hgb - Will continue to monitor with CXR - Acetaminophen as needed for mild pain/fever/headache - Bowel regimen as needed - Antiemetic as needed Disposition: Patient is improving, and oxygen requirements are rapidly decreasing. Dr. Holly saw the patient once she is stable on discharge she will see her in the office with a current scheduled date of June 16. GI Prophylaxis: H2 viktoria VTE Prophylaxis: Other (Apixaban) Resuscitation Status: CPR: Attempt Resuscitation Attending Statement Pt seen and examined by myself and agree with above plan. Kiko Comer DO Jun 10, 2016 08:22 Ariana Aj MD Jun 10, 2016 15:37
--- NOTE | 2016-06-10 15:02 | PCM.PALLBR ---
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 Palliative medicine consulted to assist patient and family and determination of goals of care Summary of palliative recommendations: -Symptom management (Pain/other)- appearing generally comfortable this morning, though quite fatigued and still somewhat confused. Continued management per hospitalist/critical care teams. Dyspnea-- stable; she will need O2 at time of discharge -Goals of care- today I spoke at great length by phone with her daughter Kati ( shares POA with the patient's son Lincoln). Kati is currently in [place] helping her daughter care for sick grandchildren there. She plans on returning to her home in [place] within the week and then driving here. Reviewed patient's status over the last several days and talked with her in detail about Dr. Holly's update. Discussed patient's treatment plan and overall prognosis and answered questions that Kati had. She notes that while there is some disagreement about how aggressive the patient 's treatment should be, everyone in the family agrees that her comfort should be the primary goal. Some family members are encouraging alternative therapies for the patient's lung cancer. Kati understands that the patient's overall prognosis is poor. We discussed advanced directive issues in detail and spoke realistically about the potential harm/benefit of such terminal interventions as CPR or intubation/mechanical ventilation. Ultimately, after lengthy discussion, Kati was comfortable making the decision that patient should be DO NOT RESUSCITATE/DO NOT INTUBATE, but she and the family will continue to want other medical treatment short of those terminal interventions. -DPOA/Advanced Directives/POLST-- per my lengthy conversations with her daughter Kati today, CODE STATUS modified to DO NOT RESUSCITATE/DO NOT INTUBATE. Will plan on completing new POA and POLST prior to discharge. -Family/emotional support-she seems to continue to get significant support from her ex-. He has been extremely anxious and distraught with her illness and decline. Kati is concerned that when she visits she will have to spend more energy caring for him emotionally than for her mother. Additional Medical Diagnoses with primary management by Hospitalist team include : 1. Acute hypercapnic respiratory failure; poa; ongoing 2. Cough with sputum production; poa; resolving 3. Stage III irx-vfvpb-utav squamous lung cancer; ongoing 4. Chronic Atrial fibrillation with rapid ventricular response. Present on admission. ongoing 5. Iron deficiency anemia, chronic; present on admission; stable 6. Coronary artery disease 7. Sundowning/delirium/transient encephalopathy; ongoing 8. Bilateral pleural effusions; ongoing Problems: End of Life Preferences DO NOT RESUSCITATE/DO NOT INTUBATE though continue with all medical care short of those terminal interventions Goals of Care Patient hopes to return home, though realistically that is unlikely Disposition Probable SNF placement for strengthening/rehabilitation Resuscitation Status Resuscitation Status: DNR/DNI:Do Not Resuscitate/Intubate POLST Updates/Changes Previous POLST?: No . Advanced Care Planning Address: Code status change Pain: None Symptom management: Drowsiness/sleepiness, Dyspnea, Delirium Total time 90 minutes; >50% face to face with patient and family, providing counselling regarding plans and recommendations, and in care coordination with her medical teams. Of the above total time, 25 minutes counseling for advanced care planning with the patient's daughter/POA Palliative Brief Note Date of Service Jun 10, 2016 . Returned to reevaluate patient. Prior to visiting, reviewed her updated records in the EMR in detail, reviewed her status with her prior palliative provider, spoke with her bedside nurse and with her hospitalists. Also reviewed her status on CCU rounds with the critical care team. On my arrival, she is lying in bed, responsive but appears very fatigued. She continues to be somewhat confused- she says she is in [facility], in the town of [facility], and the president is [facility]. She denies any chest pain, shortness of breath, nausea or other distressing symptoms. On exam, fatigued and frail appearing. Vital signs noted. Skin pale, warm and dry. Head and neck exam without acute focal findings. Lungs with dependent crackles bilaterally. Heart sounds irregularly irregular. Abdomen soft and without tenderness or peritoneal signs. Extremities with diffuse muscle wasting , scaling and peeling skin, no pitting edema. Neurologic exam limited by poor cooperation. Reviewed her lab and imaging studies in detail. Reviewed the note by her oncologist Dr. Holly- his input much appreciated. Mesfin Newman MD Jun 10, 2016 15:01
--- NOTE | 2016-06-10 16:06 | NUR ---
Social Work: Continued Discharge Planning D: Pt discussed in am rounds. pt is not medically stable for discharge and is expected to be here over the weekend. MD states pt will likely require SNF. [employer] spoke with pt's daughter, Kati, to discuss SNF recommendation and preferences. [employer] reviewed SNF CHOICE LIST with her over the phone and directed her to the Medicare.gov website. At this time, she would like to take a day to explore pt's SNF options before providing preference. [employer] agreed and provided contact information. She will contact [employer] to provide preference by Tuesday. Pt is currently 1-2 person assist and is open with [facility]. [employer] provided access to [facility], per [facility] request. PPW and PASSR completed. A: Pt who is currently 1-2 person assist P: Anticipate pt to discharge to skilled rehab; [employer] to follow up with pt's dtr regarding preference and provide referral. [employer] to continue to follow. MILLICENT Lomeli
--- NOTE | 2016-06-10 17:21 | NUR ---
Mentation/Diet/Cardiac. Patient continues with confusion, but a little brighter today. Awake most of shift, but only oriented to self. Reoriented frequently today. Denies pain/sob. Diet was advanced to stim and meds crushed in apple sauce. Patient was able to take her PO metoprolol which helped hr. Tele Afib now 70s. BP less labile today.
[2016-06-10 20:42] LABS: Magnesium 2.3 mg/dL (1.6-2.6)
[2016-06-10] MEDS ORDERED: Potassium Chloride 20 mEq SR Tablet PO ONE (21:50)
[2016-06-11] VITALS (7 sets, daily range): BP systolic 82–119; BP diastolic 39–69; PULSE 70–130; RESP 14–25; O2SAT 92–99
[2016-06-11 03:02] LABS: BASOPHILS % (AUTO) 0.3 % (0-3); EOSINOPHILS % (AUTO) 0.8 % (0-5); MONOCYTES % (AUTO) 12.5 % (4-12); Mean Corpuscular Hemoglobin 24.2 pg (27.0-35.0); Mean Corpuscular Volume 79.9 fL (81-100); NEUTROPHILS % (AUTO) 74.3 % (40-74)
[2016-06-11 03:32] LABS: Platelet Count 453 bil/L (150-400)
--- NOTE | 2016-06-11 03:51 | NUR ---
restlessness/mentation around 2230 pt becoming very upset and confused, kept pulling at lines and removing oxygen, pts O2 would drop to mid 80s, pt AFIB 130-150s, pt with confused conversation, cursing at staff, kicking and hitting. gave IV digoxin with little help also gave IV morphine pt unable to say where how she was in pain just that she hurt. after morphine didn't state she was in pain anymore but pt still restless and HR still elevated. got patient circular saw filer to come sit with pt, around 0300 pt started asking for "the pill for my pain" gave another 2mg IV morphine, pt able to relax enough to drift off to sleep, HR at this time AFIB 90s. sitter in room with pt
--- NOTE | 2016-06-11 03:57 | NUR ---
potassium pts f/u potassium was 3.1 called received order to start replacement protocol, ordered 40mEq KCL po gave pt tolerating well, next f/u potassium was 3.4, pt resting at this time will give next dose when she wakes up Addendum: 06/11/16 at 0634 by MIRELA ROWE RN gave potassium at 0600 next potassium at 1000
[2016-06-11] MEDS ORDERED: Potassium Chloride 20 mEq SR Tablet PO ONE (04:05)
[2016-06-11 04:27] LABS: Magnesium 2.1 mg/dL (1.6-2.6)
[2016-06-11] MEDS: MeTOProlol XL 25 mg ER24 Tablet PO SCH (08:30)
[2016-06-11] MEDS: Piperacillin-Tazo 3.375 Gm Inj 3.375 GM in Dextrose 5% Minibag Plus 50 ML IV SCH ×2 (08:45→16:54)
[2016-06-11] MEDS ORDERED: Potassium Chloride Inj 20 MEQ in Dextrose 5% 250 ML IV ONE (09:30)
--- NOTE | 2016-06-11 10:03 | DRSVH ---
PROCEDURE: X-RAY CHEST ONE VIEW, PORTABLE ([id number]) INDICATIONS: SHORTNESS OF BREATH TECHNIQUE: One view of the chest was acquired. COMPARISON: [facility], CR, XR CHEST 1VW (PORTABLE), 06/10/2016, 5:17. FINDINGS: Surgical changes and devices: Patient is status post median sternotomy. Lungs and pleura: No pleural effusions or pneumothorax. Moderate dependent left pleural effusion per sists, along with confluent retrocardiac opacity. No pneumothorax. Airspace opacity nausea right rae ng base. Mediastinum: Mediastinal contours appear normal. Cardiac silhouette is partially obscured by left pl eural effusion. There is aortic atherosclerosis. Bones and chest wall: No suspicious bony lesions. Serpiginous calcification of the proximal right hu meral is again noted, consistent with enchondroma. Overlying soft tissues appear unremarkable. IMPRESSION: 1. Persistent moderate dependent left pleural effusion with compressive atelectasis versus pneumonia obscuring the left base. 2. Airspace opacity involving the right lung base consistent with atelectasis, aspiration or pneumoni a. 3. Right humeral enchondroma. Dictated by: Tk Rose [facility] Interpreted: Imani Rodrigues MD on 06/11/2016 at 10:00 Transcribed by: SARAH on 06/11/2016 at 10:02 Approved by: Imani Rodrigues M.D. on 06/11/2016 at 17:30
--- NOTE | 2016-06-11 11:20 | PCM.PNMED ---
Subjective Date of Service Jun 11, 2016 Subjective Overnight patient was extremely agitated and delirious. She was cursing and trying to hit staff members. Seroquel 50 mg was administered with no effect. Patient's breathing otherwise is improving and her mentation is returning. She had a good conversation this morning and remembered the events currently took place. She is disturbed by the fact that she is having this delirium at night. Yesterday palliative care discuss patient's CODE STATUS with family the patient is now DO NOT RESUSCITATE DO NOT INTUBATE Exam Vital Signs Vital Sign - Last Date Time Temp Pulse Resp B/P Pulse Ox O2 Delivery O2 Flow Rate FiO2 06/11/16 08:00 87 21 82/39 99 Nasal Cannula 1.00 06/11/16 03:21 36.8 06/08/16 20:00 30 Intake and Output 06/10/16 06/10/16 06/11/16 Cumulative From/Thru 15:00 23:00 07:00 06/04/16 12:26 - 06/11/16 06:09 Intake Total 696 ml 303 ml 56143 ml Output Total 3151 ml Balance 696 ml 303 ml 38013 ml Intake Oral 0 ml 120 ml 2370 ml IV Total 696 ml 183 ml 25632 ml Output Urine Total 3151 ml # Voids 3 3 23 # Bowel Movements 2 6 Exam Gen: Pt conversing HEENT: EOMI, PERRLA, no JVD Cardio: irregular; systolic murmur heard best at right sternal border; rate is between 100-125 Resp:clearly up with some crackles Abd: no abdominal pain, soft; non-distended Ext: no edema noted; moving all 4 Psych: good mood and appropriate affect Neuro: sensation intact grossly, pupils reactive; moving all 4 extremities skin: no rashes IVs and Medications Medications Reviewed: Medications were reviewed in detail Lab and Diagnostics Result Diagram: 06/11/16 0229 06/11/16 1025 X-Rays, CTs and MRIs X-RAY CHEST ONE VIEW, PORTABLE 06/04/16 IMPRESSION: 1. Left pulmonary mass and probable left hilar adenopathy redemonstrated. 2. Stable right humeral lesion. Dictated by: Lilliana Aparicio M.D. on 06/04/2016 at 14:15 Approved by: Lilliana Aparicio M.D. on 06/04/2016 at 14:17 Cardiac Echo Impressions Interpretation Summary The study quality was technically difficult. The patient was in atrial fibrillation with rapid ventricular response during the exam with a heart rate exceeding 100 bpm. The heart rate ranged between 122-151 bpm during the study. The left ventricular cavity is small. The left ventricle is borderline hyperdynamic. The ejection fraction is estimated to be 70-75%. LVEF is more hyperdynamic. The right ventricle grossly appears normal in size with probable normal systolic function. The IVC is dilated (diameter is greater than 2.1 cm) and it collapses less than 50% with a sniff. This suggests a high right atrial pressure of 15 mm Hg. There are large-sized bilateral pleural effusions noted. There is a bioprosthetic aortic valve. The gradients through the prosthetic aortic valve are grossly normal and within the normal range for this type of valve. No significant aortic regurgitation was visualized. No significant changes since prior study. Read by Dr. Mcclendon 06/09/16 at 15:57 Assessment & Plan Barbra Edmonds is a 86 year old female with Coronary artery, Hypertension, Stage 3 Lung cancer, Chronic Atrial fibrillation who presents to [facility] emergency department with a productive cough 1. Acute hypercapnic respiratory failure; poa; ongoing - Pt has progressive hypercapnia/hypoxia likely second to advancement of lung cancer - ABG yesterday was equivocal to prior. - Patient weaned down on oxygen this morning doing well on room air with occasional nasal cannula 1 L. - BiPAP as needed at night - O2 sats to be kept between 88 and 92% - Bicarb is rising; ABG ordered for today 2. Cough with sputum production, questionable new aspiration pneumonia; poa; resolving - Worsening over the last 2-3 months; questionably second to pneumonia but more progression of her tumor; however, procal and wbc resolving - Initially thought to be due to CAP and patient has received Cefepime for 5 days now days now - Viral resp PCR is negative; pt afebrile, blood cx negative; procalcitonin negative but increased - Change antibiotic weight yesterday evening from cefepime to Zosyn every 8 hours - Left pleural effusion is obscuring the left lung mass that appears to be somewhat stable. The right lung was clear this morning. We will continue to follow with CXR 3. owning/delirium/transient encephalopathy; ongoing - Seroquel did not work - Haldol 5mg IV QHS for delirium 4. Chronic Atrial fibrillation with rapid ventricular response. Present on admission. ongoing - Rate control was achieved yesterday - Metoprolol increased to 50mg BID and this has controlled her rate - monitor on telemetry - Elocon was left on note and EMR. It is not used for A-fib 5. Stage III [id number]-imgc squamous lung cancer; ongoing - Unfortunately the patient has significant comorbidities not a candidate for chemotherapy, radiation or surgery. - Dr. Holly is scheduled to see the patient June 16 - Palliative discussed with family and pt is now DNR/I 6. Iron deficiency anemia, chronic; present on admission; stable - Hgb around 9 - Iron replacement once able to take PO 7. Coronary artery disease - No anginal equivalent symptoms - consider repeat EKG for any chest pain 8. Bilateral pleural effusions; ongoing - Discussed case with pulmonology as patient is improving and has a known lung tumor, need for thoracentesis as questionable - No acute drop in hgb - Will continue to monitor with CXR - Acetaminophen as needed for mild pain/fever/headache - Bowel regimen as needed - Antiemetic as needed Disposition: Patient is improving and mentation is returning. ABG today. We will continue to follow the patient's progression. She will be discharged to SNF when she is better controlled, which is likely 1-2 days. Patient seen and examined . Plan of care discussed with president celebrity acquistion : Kezia Comer The above documentation reviewed and edited where applicable Case discussed at length during ,multidisciplinary round . GI Prophylaxis: H2 viktoria VTE Prophylaxis: Other (Apixaban) Resuscitation Status: DNR/DNI:Do Not Resuscitate/Intubate Time spent 35 minutes Kiko Comer DO Jun 11, 2016 11:20 Mesfin Velazquez MD Jun 12, 2016 07:31
--- NOTE | 2016-06-11 12:31 | ABG ---
DateTimeAnalyzed 12:25:00 -_ pH ____7.412 - 7.350 7.450 pCO2 ___62.7__ -mmHg 35.0 45.0 pO2 ___65.4__ -mmHg 69.0 116 HCO3- ___39.1__ -mmol/L 22.0 26.0 ABE ___12.9__ -mmol/L -2.0 2.0 tHb ____8.9__ -g/dL O2Hb ___91.3__ -% COHb ____1.4__ -% MetHb ____0.8__ -% sO2 ___93.4__ -% FIO2 ___32.0__ -% Drawn By NB - Date/Time Notified____ 12:31:00 -_ Spontaneous_RR ___22.0__ -b/min Oxygen Device 1 __CANNULA - Notified By nb - Notified Whom Kiko Comer, md - B 762 -mmHg tO2 ___11.5__ -Vol% Jonn test N/A -
--- NOTE | 2016-06-11 14:06 | NUR ---
NUTRITION FOLLOW-UP: ASSESS: 86 YO female admitted with productive cough, acute hypercapnic respiratory failure second to advancement of stage III lung cancer, questionable aspiration pneumonia. The patient has severe sundown syndrome and requires Haldol prn. She currently is requiring a sitter. Plan of care remains nebulous, as the patient is scheduled to initiate chemotherapy Tuesday, 06/16. Code status: DNR / DNI. PMHX: Stg 3 lung ca, afib, pulmonary HTN, HTN, CAD. LABS: Chloride 94, CO2 36, Cr 0.54, Glu 134, Alb 2.7. MEDS: Reviewed. Haldol. GI: BM x 2 today. SKIN: Maximus 17. WT: 58.6 kg, BMI 22.0 kg/m2, admit wt 58.9kg. Wt has increased 7kg since admit DIET: Diet advanced today to dysphagia mechanical, nectar thick liquids. PO intake 75% x 1 tray. She has had inadequate nutrition since admit x 7 D. EST. NEEDS: Kcals: 1570-1885kcal/day (25-30kcal/kg) Pro: 65-95g/day (1.0-1.5g/kg) NUTRITION DIAGNOSIS: 1) Inadequate oral intake related to respiratory distress as evidence by decreased PO intake as respiratory status decreased, PO 0-100% - IMPROVED. 2) Chew/swallow difficulty related to AMS and weakness as evidence by need for strict NPO diet order per ST - IMPROVED. NUTRITION INTERVENTION: 1) Advance diet per ST. 2) Will add supplements to trays. MONITOR / EVAL: Diet advance / tolerance, BIPAP requirement, wt, labs, GI, POC, nutrition status. Will continue to monitor per high nutrition risk guidelines.
--- NOTE | 2016-06-11 14:31 | NUR ---
Palliative care note D/A: Have been informed by Dr. Newman that pt is requesting a [facility] info visit. Phone call to Joan at [facility] to discuss. Unclear if visit can be arranged for today. Joan to ask Nandini to arrange. They are aware this worker is available until 1600. Have also left message with [facility] MILLICENT Figueredo regarding above. If do not hear from [facility] in relation to a planned info visit-will leave another message for luh Khalil. P: Palliative care to continue to follow. Yandy [facility] Addendum: 06/11/16 at 1511 by POOJA HAYNES PC note amendment D/A: Call from Nandini at [facility] who indicates that Jie RICKS can discuss with pt today, starting between 3:15 to 3:30. Phone call to pt room to discuss. She affirms that this will work for her. Phone call to pt dtr Kati to discuss (see Akti phone number in [employer]/dc planning notes. Dtr Kati indicates that she would like to be a part of the info visit and that a phone call will work for her. (Note that Kati is now in [place] with her grand kids.) Call to Bea RICKS to discuss above arrangements. Phone call back to Nandini from [facility] to indicate that pt has agreed with plan and to also supply name and number for dtr Kati. P: Palliative to follow as needed. Yandy [facility]
[2016-06-11] MEDS ORDERED: Haloperidol 5 mg/mL Inj IVPUSH PRN (14:35)
--- NOTE | 2016-06-11 15:51 | PCM.PALLBR ---
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 Palliative medicine consulted to assist patient and family and determination of goals of care Summary of palliative recommendations: -Symptom management (Pain/other)- appearing generally comfortable this morning, though quite fatigued. Sensorium has cleared compared with yesterday, though with significant delirium through the night which now appears to have cleared. Nocturnal delirium last evening, now resolved. Discussed possible medication options with her hospitalist, including low-dose haloperidol vs Risperdal. Dyspnea-- stable; she will need O2 at time of discharge -Goals of care- on 06/10 I spoke at great length by phone with her daughter Kati (shares POA with the patient's son Lincoln). Kati is currently in [place] helping her daughter care for sick grandchildren there. She plans on returning to her home in [place] within the week and then driving here. Reviewed patient's status over the last several days and talked with her in detail about Dr. Holly's update. Discussed patient's treatment plan and overall prognosis and answered questions that Kati had. She noted that while there is some disagreement about how aggressive the patient 's treatment should be, everyone in the family agrees that her comfort should be the primary goal. Some family members are encouraging alternative therapies for the patient's lung cancer. Kati understands that the patient's overall prognosis is poor. We discussed advanced directive issues in detail and spoke realistically about the potential harm/benefit of such terminal interventions as CPR or intubation/mechanical ventilation. Ultimately, after lengthy discussion, Kati was comfortable making the decision that patient should be DO NOT RESUSCITATE/DO NOT INTUBATE, but she and the family will continue to want other medical treatment short of those terminal interventions. -DPOA/Advanced Directives/POLST-- per my lengthy conversations with her daughter Kati on 06/10, CODE STATUS modified to DO NOT RESUSCITATE/DO NOT INTUBATE. Will plan on completing new POA and POLST prior to discharge. -Family/emotional support-she seems to continue to get significant support from her ex-. He has been extremely anxious and distraught with her illness and decline. Kati is concerned that when she visits she will have to spend more energy caring for him emotionally than for her mother. Addendum: Late this afternoon patient's hospitalist Dr. Comer contacted me noting that the patient was now requesting hospice information. Palliative GRINDER SET UP OPERATOR SURFACE will contact hospice and assist in making arrangements for an information visit. Additional Medical Diagnoses with primary management by Hospitalist team include : 1. Acute hypercapnic respiratory failure; poa; ongoing 2. Cough with sputum production; poa; resolving 3. Stage III urp-auwdz-hfto squamous lung cancer; ongoing 4. Chronic Atrial fibrillation with rapid ventricular response. Present on admission. ongoing 5. Iron deficiency anemia, chronic; present on admission; stable 6. Coronary artery disease 7. Sundowning/delirium/transient encephalopathy; ongoing 8. Bilateral pleural effusions; ongoing Problems: End of Life Preferences DO NOT RESUSCITATE/DO NOT INTUBATE though continue with all medical care short of those terminal interventions Goals of Care Patient hopes to return home, though realistically that is unlikely Disposition Probable SNF placement for strengthening/rehabilitation Resuscitation Status Resuscitation Status: DNR/DNI:Do Not Resuscitate/Intubate POLST Updates/Changes Previous POLST?: No . Pain: None Symptom management: Dyspnea Total time 60 minutes; >50% face to face with patient, providing counselling regarding plans and recommendations, and in care coordination with her medical teams. Of the above total time, 15 minutes counseling for advanced care planning with the patient and coordinating hospice consult Palliative Brief Note Date of Service Jun 11, 2016 . Returned to reevaluate patient. Prior to visiting, reviewed her updated records in the EMR in detail and spoke with her bedside nurse. She reported that the patient had become significantly agitated last evening, not responsive to Seroquel, was combative at times and attempting to pull her lines. Finally seemed to exhaust herself settled down this morning. When I arrived to visit the patient, she was sitting up in bed and was awake and alert. Oriented 3 today- a significant improvement over yesterday- and spoke with me and answer questions quite appropriately. Denied any pain or nausea, but noted that she became extremely short of breath if she would try to lie down flat. On exam, frail, pale woman sitting up in bed. Vital signs noted. Skin is warm and dry. Head and neck exam without acute focal findings. Lungs with decreased breath sounds and crackles at bases. Heart sounds are regular. Abdomen soft and nontender. Extremities with diffuse muscle atrophy, dry peeling skin, no edema. Labs and imaging studies reviewed in detail. Attempted to contact her daughter Kati multiple times by telephone but was never able to reach her; did leave a message with my cell number requesting her to call back so I could update her. Spoke with her hospitalist and reviewed medications with him Mesfin Newman MD Jun 11, 2016 10:53
--- NOTE | 2016-06-11 18:47 | NUR ---
transfer: Pt oriented to self/place, intermittently alert. No attempts at violence to staff, no pulling at lines today. Tele Afib 80s-100s, some hypotension noted at times, aware, AM BP meds held. Up in chair briefly with PT. Transferred to OSC room 1004, all belongings sent with pt. Care ongoing.
--- NOTE | 2016-06-11 19:16 | NUR ---
TRANSFER TO [facility] Patient arrived to Rm 1004 on hospital bed with all belongings. On 1 LPM O2, sats 92%. On telemetry-A.Fib. IV fluids and antibiotics infusing. No complaints of pain. Alert and oriented, oriented to room and staff. Continue to monitor.
[2016-06-11] MEDS: oxyCODONE-Acetamin 5-325 mg Tablet PO PRN (19:50)
[2016-06-11] MEDS ORDERED: Haloperidol 5 mg/mL Inj IVPUSH SCH ×2 (21:00)
[2016-06-12] MEDS: Piperacillin-Tazo 3.375 Gm Inj 3.375 GM in Dextrose 5% Minibag Plus 50 ML IV SCH ×3 (00:28→16:34)
[2016-06-12 00:59] VITALS: BP 142/78; PULSE 86; RESP 16; O2SAT 95
--- NOTE | 2016-06-12 03:04 | NUR ---
Afib/confusion Pt on tele- remains Afib 80's. Pt constant talking about a med she was given last night that made her "crazy" and concerned that she would receive tonight. Assured her she was not. Scheduled haldol given at HS with + effects. Pt resting comfortably, continues on 1L o2 via NC.
[2016-06-12 05:43] VITALS: BP 137/73; PULSE 65; RESP 16; O2SAT 94
[2016-06-12 05:59] LABS: BASOPHILS % (AUTO) 0.6 % (0-3); EOSINOPHILS % (AUTO) 2.5 % (0-5); MONOCYTES % (AUTO) 14.6 % (4-12); Mean Corpuscular Volume 83.1 fL (81-100); NEUTROPHILS % (AUTO) 67.6 % (40-74); Platelet Count 430 bil/L (150-400)
[2016-06-12 06:21] VITALS: PULSE 113
[2016-06-12] MEDS: MeTOProlol XL 25 mg ER24 Tablet PO SCH (08:41)
[2016-06-12 09:13] VITALS: PULSE 90
[2016-06-12] MEDS ORDERED: Haloperidol 5 mg/mL Inj IVPUSH PRN (10:55)
[2016-06-12 11:03] VITALS: BP 116/72; PULSE 72; RESP 16; O2SAT 96
--- NOTE | 2016-06-12 11:10 | PCM.PNMED ---
Subjective Date of Service Jun 12, 2016 Subjective patient stated that she is still coughing close to her baseline but sputum is less purulent. denied SOB, Kati daughter is waiting to hear from where patient is discharged to was given haldol overnight for delirium 2mg iv Exam Vital Signs Vital Sign - Last Date Time Temp Pulse Resp B/P Pulse Ox O2 Delivery O2 Flow Rate FiO2 06/12/16 10:08 Nasal Cannula 1.00 06/12/16 09:13 90 06/12/16 05:43 36.6 16 137/73 94 06/08/16 20:00 30 Intake and Output 06/11/16 06/11/16 06/12/16 Cumulative From/Thru 15:00 23:00 07:00 06/04/16 12:26 - 06/12/16 05:51 Intake Total 1081 ml 212 ml 46675 ml Output Total 3151 ml Balance 1081 ml 212 ml 97081 ml Intake Oral 700 ml 3070 ml IV Total 381 ml 212 ml 79174 ml Output Urine Total 3151 ml # Voids 8 31 # Bowel Movements 6 Exam Cachectic female, intermittent dry coughing spells, alert and oriented no JVD, MMM, no LAD RRR, nl s1, s2 no mrg scatter crackles, decreased BS on left side S,ND,NT,normoactive BS+ warm, no edema, pulses 2/2 IVs and Medications Medications Reviewed: Medications were reviewed in detail Lab and Diagnostics Result Diagram: 06/12/16 0506/12/16 0526 X-Rays, CTs and MRIs X-RAY CHEST ONE VIEW, PORTABLE 06/04/16 IMPRESSION: 1. Left pulmonary mass and probable left hilar adenopathy redemonstrated. 2. Stable right humeral lesion. Dictated by: Lilliana Aparicio M.D. on 06/04/2016 at 14:15 Approved by: Lilliana Aparicio M.D. on 06/04/2016 at 14:17 Cardiac Echo Impressions Interpretation Summary The study quality was technically difficult. The patient was in atrial fibrillation with rapid ventricular response during the exam with a heart rate exceeding 100 bpm. The heart rate ranged between 122-151 bpm during the study. The left ventricular cavity is small. The left ventricle is borderline hyperdynamic. The ejection fraction is estimated to be 70-75%. LVEF is more hyperdynamic. The right ventricle grossly appears normal in size with probable normal systolic function. The IVC is dilated (diameter is greater than 2.1 cm) and it collapses less than 50% with a sniff. This suggests a high right atrial pressure of 15 mm Hg. There are large-sized bilateral pleural effusions noted. There is a bioprosthetic aortic valve. The gradients through the prosthetic aortic valve are grossly normal and within the normal range for this type of valve. No significant aortic regurgitation was visualized. No significant changes since prior study. Read by Dr. Mcclendon 06/09/16 at 15:57 Assessment & Plan Barbra Edmonds is a 86 year old female with Coronary artery, Hypertension, Stage 3 Lung cancer, Chronic Atrial fibrillation who presents to [facility] emergency department with a productive cough 1. Acute hypercapnic respiratory failure; poa; progressive hypercapnia/hypoxia likely second to ventricular failure with advancement of lung cancer, developing pleural effusion/atelectasis - stable respiratory function, unlikely resolve this problem without therapeutic thoracentesis, however no clear benefit given her prognosis. - BiPAP as needed at night - O2 sats to be kept between 88 and 92% 2. Cough with sputum production, questionable new aspiration pneumonia; poa; Worsening over the last 2-3 months; questionably second to pneumonia but more progression of her tumor; however, procal and wbc resolving. Initially thought to be due to CAP and patient has received Cefepime for 5 days then switched zosyn. Viral resp PCR is negative; pt afebrile, blood cx negative; procalcitonin trending down. -continue Zosyn every 8 hours likely to finish 14days course, consider chg to Quinolone 3. Sundowning/delirium/transient encephalopathy; ongoing - Seroquel did not work - Haldol 2mg IV QHS changed to prn in anticipation of SNF placement, try to avoid and aggressively reoriente if possible 4. Chronic Atrial fibrillation with rapid ventricular response. Present on admission. ongoing - Rate control -continue Metoprolol to 50mg BID and this has controlled her rate - monitor on telemetry - Elocon was left on note and EMR. It is not used for A-fib 5. Stage III ahd-khqqr-wvyu squamous lung cancer; ongoing - Unfortunately the patient has significant comorbidities not a candidate for chemotherapy, radiation or surgery. - Dr. Holly is scheduled to see the patient June 16 - Palliative discussed with family and pt is now DNR/I 6. Iron deficiency anemia, chronic; present on admission; stable - Hgb around 9 - Iron replacement once able to take PO 7. Coronary artery disease - No anginal equivalent symptoms - consider repeat EKG for any chest pain 8. Bilateral pleural effusions; ongoing - Discussed case with pulmonology as patient is improving and has a known lung tumor, need for thoracentesis as questionable - No acute drop in hgb - Will continue to monitor with CXR - Acetaminophen as needed for mild pain/fever/headache - Bowel regimen as needed - Antiemetic as needed Disposition: likely SNF in 1-2more days, hospice info visit yesterday but pt/ family not interested yet GI Prophylaxis: H2 viktoria VTE Prophylaxis: Other (Apixaban) VTE Mechanical Devices: Intermittant Pneumatic CD Resuscitation Status: DNR/DNI:Do Not Resuscitate/Intubate Time spent 35min Dylon Tucker MD Jun 12, 2016 11:00
[2016-06-12] MEDS: oxyCODONE-Acetamin 5-325 mg Tablet PO PRN ×2 (12:50→19:39)
--- NOTE | 2016-06-12 15:53 | NUR ---
Social Work Note: Continued Discharge Planning Data& Assessment: Per MD pt is getting medically closer to DC. SW spoke with pt and pt ex at bedside as well as pt daughter Kati via phone call regarding discharge planning. After review of Medicare.gov website and SNF list provided, pt and pt family has a preference for [facility] SNF in [place]. SW sent referral and they are reviewing pt for possible acceptance. Pt and pt family deny any other needs at this time. SW to continue to follow. Plan: Anticipated discharge to SNF pending acceptance. [facility] is reviewing pt at this time. Pt and pt family deny any other needs. SW to continue to follow. MILLICENT Cabrera Addendum: 06/12/16 at 1618 by MUKESH REDD Per [facility] SNF admissions, pt is accepted when medically ready. JOLYNN to continue to follow. MILLICENT Cabrera
--- NOTE | 2016-06-12 15:57 | NUR ---
RENAN Signed MILLICENT Cabrera
--- NOTE | 2016-06-12 19:21 | NUR ---
ACTIVITY/PAIN Patient worked with physical therapy today and transferred into chair at bedside. Unable to tolerate for very long and transferred back into bed. Remains on 1 LPM O2 via NC, CPOX in place. Medicated with 1 tab percocet for upper middle back pain. Patient reports receiving good relief and able to take a nap. Continue with hourly rounding.
[2016-06-12 20:45] VITALS: BP 108/61; PULSE 86; RESP 18; O2SAT 96
[2016-06-13] MEDS: Piperacillin-Tazo 3.375 Gm Inj 3.375 GM in Dextrose 5% Minibag Plus 50 ML IV SCH ×3 (00:32→16:32)
--- NOTE | 2016-06-13 04:19 | NUR ---
Anxiety Pt. has been anxious all shift. Reassurance given. Anxiety interventions implemented. Will continue to monitor.
[2016-06-13 05:45] VITALS: BP 120/77; PULSE 97; RESP 20; O2SAT 97
[2016-06-13 06:08] LABS: BASOPHILS % (AUTO) 0.5 % (0-3); EOSINOPHILS % (AUTO) 1.9 % (0-5); Mean Corpuscular Hemoglobin 23.8 pg (27.0-35.0); Mean Corpuscular Volume 83.8 fL (81-100); NEUTROPHILS % (AUTO) 75.9 % (40-74); Platelet Count 419 bil/L (150-400)
[2016-06-13 06:28] LABS: Magnesium 1.8 mg/dL (1.6-2.6); Phosphorus 3.1 mg/dL (2.5-4.9)
[2016-06-13 07:48] VITALS: BP 123/77; PULSE 105; RESP 16; O2SAT 95
[2016-06-13] MEDS: MeTOProlol XL 25 mg ER24 Tablet PO SCH (07:50)
[2016-06-13] MEDS: oxyCODONE-Acetamin 5-325 mg Tablet PO PRN ×3 (07:51→21:08)
--- NOTE | 2016-06-13 16:34 | PCM.PNMED ---
Subjective Date of Service Jun 13, 2016 Subjective Patient was seen and examined at bedside today. Patient denies any chest pain, shortness of breath, nausea, vomiting, diarrhea. Exam Vital Signs Vital Sign - Last Date Time Temp Pulse Resp B/P Pulse Ox O2 Delivery O2 Flow Rate FiO2 06/13/16 10:14 Nasal Cannula 1.00 06/13/16 07:48 105 16 123/77 95 06/13/16 05:45 36.4 06/08/16 20:00 30 Intake and Output 06/12/16 06/12/16 06/13/16 Cumulative From/Thru 15:00 23:00 07:00 06/04/16 12:26 - 06/13/16 06:54 Intake Total 100 ml 591 ml 568 ml 81943 ml Output Total 508 ml 550 ml 512 ml 4721 ml Balance -408 ml 41 ml 56 ml 49387 ml Intake Oral 100 ml 380 ml 400 ml 3950 ml IV Total 211 ml 168 ml 70265 ml Output Urine Total 508 ml 550 ml 512 ml 4721 ml # Voids 31 # Bowel Movements 2 8 Exam GEN: Patient was awake, alert, responding appropriately to questions HEENT: PERRLA, EOMI, Neck soft supple, trachea midline, nomocephalic/atraumatic CV: +S1/S2, RRR, systolic murmur auscultated Respiratory: Coarse breath sounds, no wheezes, rales, rhonchi GI: +bowel sounds x4, soft, compressible, non TTP EXT: no c/c/e Musculoskeletal: Inhaled rib 5 on the right, anterior right innominate Neuro: CN II-XII grossly intact Psych: mood and affect were appropriate IVs and Medications Medications Reviewed: Medications were reviewed in detail Lab and Diagnostics Result Diagram: 06/13/16 0540 06/13/16 0540 X-Rays, CTs and MRIs X-RAY CHEST ONE VIEW, PORTABLE 06/04/16 IMPRESSION: 1. Left pulmonary mass and probable left hilar adenopathy redemonstrated. 2. Stable right humeral lesion. Dictated by: Lilliana Aparicio M.D. on 06/04/2016 at 14:15 Approved by: Lilliana Aparicio M.D. on 06/04/2016 at 14:17 Cardiac Echo Impressions Interpretation Summary The study quality was technically difficult. The patient was in atrial fibrillation with rapid ventricular response during the exam with a heart rate exceeding 100 bpm. The heart rate ranged between 122-151 bpm during the study. The left ventricular cavity is small. The left ventricle is borderline hyperdynamic. The ejection fraction is estimated to be 70-75%. LVEF is more hyperdynamic. The right ventricle grossly appears normal in size with probable normal systolic function. The IVC is dilated (diameter is greater than 2.1 cm) and it collapses less than 50% with a sniff. This suggests a high right atrial pressure of 15 mm Hg. There are large-sized bilateral pleural effusions noted. There is a bioprosthetic aortic valve. The gradients through the prosthetic aortic valve are grossly normal and within the normal range for this type of valve. No significant aortic regurgitation was visualized. No significant changes since prior study. Read by Dr. Mcclendon 06/09/16 at 15:57 Assessment & Plan 6 Barbra Edmonds is a 86 year old female with Coronary artery, Hypertension, Stage 3 Lung cancer, Chronic Atrial fibrillation who presents to [facility] emergency department with a productive cough 1. Acute hypercapnic respiratory failure; poa; progressive hypercapnia/hypoxia likely second to ventricular failure with advancement of lung cancer, developing pleural effusion/atelectasis - stable respiratory function, unlikely resolve this problem without therapeutic thoracentesis, however no clear benefit given her prognosis. - BiPAP as needed at night - O2 sats to be kept between 88 and 92% 2. Cough with sputum production, questionable new aspiration pneumonia; poa; Worsening over the last 2-3 months; questionably second to pneumonia but more progression of her tumor; however, procal and wbc resolving. Initially thought to be due to CAP and patient has received Cefepime for 5 days then switched zosyn. Viral resp PCR is negative; pt afebrile, blood cx negative; procalcitonin trending down. -continue Zosyn every 8 hours likely to finish 14days course, consider chg to Quinolone 3. Sundowning/delirium/transient encephalopathy; ongoing - Seroquel did not work - Haldol 2mg IV QHS changed to prn in anticipation of SNF placement, try to avoid and aggressively reoriente if possible 4. Chronic Atrial fibrillation with rapid ventricular response. Present on admission. ongoing - Rate control -continue Metoprolol to 50mg BID and this has controlled her rate - monitor on telemetry - Elocon was left on note and EMR. It is not used for A-fib 5. Stage III [id number]-mrzd squamous lung cancer; ongoing - Unfortunately the patient has significant comorbidities not a candidate for chemotherapy, radiation or surgery. - Dr. Holly is scheduled to see the patient June 16 - Palliative discussed with family and pt is now DNR/I 6. Iron deficiency anemia, chronic; present on admission; stable - Hgb around 9 - Iron replacement once able to take PO 7. Coronary artery disease - No anginal equivalent symptoms - consider repeat EKG for any chest pain 8. Bilateral pleural effusions; ongoing - Discussed case with pulmonology as patient is improving and has a known lung tumor, need for thoracentesis as questionable - No acute drop in hgb - Will continue to monitor with CXR - Acetaminophen as needed for mild pain/fever/headache - Bowel regimen as needed - Antiemetic as needed Disposition: likely SNF in 1-2more days, hospice info visit yesterday but pt/ family not interested yet. Patient does seem to be improving however blood cell count increased today. We will continue to monitor the patient and avoid the usage of Haldol. Patient will be most likely discharged tomorrow to SNF. GI Prophylaxis: H2 viktoria VTE Prophylaxis: Other (Apixaban) VTE Mechanical Devices: Intermittant Pneumatic CD Resuscitation Status: DNR/DNI:Do Not Resuscitate/Intubate Time spent Greater than 35 minutes Lou Neal DO Jun 13, 2016 16:27
--- NOTE | 2016-06-13 16:51 | NUR ---
ACTIVITY/MENTATION Patient is alert and oriented X 4. Answers question appropriately. Percocet 1 tab PO has been effective for patients complaints of back pain. Poor appetite. Tolerating liquids PO and her diet well. Denies nausea. No emesis noted. Patient is on O2 at 2 LPM via NC. Denies SOB at this time. She has been able to get up to the BSC with SBA. Using her call light appropriately. Does not attempt to get OOB without assistance.
[2016-06-13 20:50] VITALS: BP 129/64; PULSE 53; RESP 18; O2SAT 97
[2016-06-14] MEDS: Piperacillin-Tazo 3.375 Gm Inj 3.375 GM in Dextrose 5% Minibag Plus 50 ML IV SCH ×2 (00:55→08:07)
--- NOTE | 2016-06-14 04:57 | NUR ---
Pain pt reports that her back pain has been better tonight then yesterday. she has been getting up and going to the BSC, with SBA where as before she would say she was in too much pain to get up. she has taken 1 percocet this shift and has slept for most of the night appearing comfortable. she has been alert and oriented x4, pleasant and cooperative with care.
[2016-06-14] MEDS: oxyCODONE-Acetamin 5-325 mg Tablet PO PRN ×2 (05:23→11:21)
[2016-06-14 05:55] VITALS: BP 115/71; PULSE 92; RESP 16; O2SAT 96
[2016-06-14 06:10] LABS: Mean Corpuscular Hemoglobin 23.6 pg (27.0-35.0); Mean Corpuscular Volume 82.9 fL (81-100)
[2016-06-14] MEDS: MeTOProlol XL 25 mg ER24 Tablet PO SCH (08:06)
[2016-06-14 08:08] VITALS: BP 123/67; PULSE 68; RESP 16; O2SAT 96
[2016-06-14 10:00] VITALS: PULSE 100
--- NOTE | 2016-06-14 11:36 | PCM.DIMED ---
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 Holly on 06/16/2016) Lou Neal DO Jun 14, 2016 11:36
--- NOTE | 2016-06-14 11:39 | PCM.PNPALL ---
Date of Service Jun 14, 2016 Date of Hospital Admission: Jun 04, 2016 at 14:36 Date of Palliative Consult: Jun 08, 2016 Palliative Care Recommendation 86-year-old female with stage III non-small cell squamous lung cancer, admitted with acute respiratory failure, multifactorial, with possible obstructive pneumonia, atrial fibrillation and RVR, COPD, left pleural effusion, etc. Palliative medicine consulted to assist patient and family and determination of goals of care Summary of palliative recommendations: -Symptom management (Pain/other)- appearing generally comfortable this morning, though quite fatigued. Sensorium has cleared compared completely at this time. Dyspnea-- stable; she will need O2 at time of discharge, She is fiddling with her oxygen, taking it on and off, but wants to be sure that she still has it available at the SNF. -Goals of care- on 06/10 Dr. Newman spoke by phone with her daughter Kati (shares POA with the patient's son Lincoln). Kati is currently in [place] helping her daughter care for sick grandchildren there. She plans on returning to her home in [place] within the week and then driving here. Reviewed patient's status over the last several days and talked with her in detail about Dr. Holly's update. Discussed patient's treatment plan and overall prognosis and answered questions that Kati had. Kati understands that the patient's overall prognosis is poor. They discussed advanced directive issues in detail and spoke realistically about the potential harm/benefit of such terminal interventions as CPR or intubation/mechanical ventilation. Ultimately, after lengthy discussion, Kati was comfortable making the decision that patient should be DO NOT RESUSCITATE/DO NOT INTUBATE, but she and the family will continue to want other medical treatment short of those terminal interventions. -DPOA/Advanced Directives/POLST-- per Dr. Newman conversations with her daughter Kati on 06/10, CODE STATUS modified to DO NOT RESUSCITATE/DO NOT INTUBATE. -Family/emotional support-she seems to continue to get significant support from her ex-. He has been extremely anxious and distraught with her illness and decline. Kati is concerned that when she visits she will have to spend more energy caring for him emotionally than for her mother. Additional Medical Diagnoses with primary management by Hospitalist team include : 1. Acute hypercapnic respiratory failure; poa; ongoing 2. Cough with sputum production; poa; resolving 3. Stage III [id number] squamous lung cancer; ongoing 4. Chronic Atrial fibrillation with rapid ventricular response. Present on admission. ongoing 5. Iron deficiency anemia, chronic; present on admission; stable 6. Coronary artery disease 7. Sundowning/delirium/transient encephalopathy; ongoing 8. Bilateral pleural effusions; ongoing Problems: End of Life Preferences DO NOT RESUSCITATE/DO NOT INTUBATE though continue with all medical care short of those terminal interventions Goals of Care Patient hopes to return home, though realistically that is unlikely Disposition Probable [facility] placement today for strengthening/rehabilitation Will see Dr. Holly again in 3 days. Pleural effusion is much larger and the mass is also larger on serial CXR's reviewed today. This effect shortens her prognosis, which is discussed today. Expect transition to hospice soon. Daughter will arrive later this week. Resuscitation Status Resuscitation Status: DNR/DNI:Do Not Resuscitate/Intubate POLST Updates/Changes Previous POLST?: No Palliative Subjective Brief History 86-year-old female with stage III non-small cell squamous lung cancer, admitted with acute respiratory failure, multifactorial, with possible obstructive pneumonia, atrial fibrillation and RVR, COPD, left pleural effusion, etc. Palliative medicine consulted to assist patient and family and determination of goals of care Patient/Family Concerns She enjoys the visit today, expounding on her life experiences, large family of 7 children, and her current interests in genealogy, trying to live actively at her age. She has a mostly controlled level of pain in her mid back, that is responding to Percocet. Subjective Talkative and aware of her lung cancer/pleural effusion situation. Looking forward to her next visit with Dr. Holly this week. Aware that she will be going to the [facility] today or tomorrow. Palliative Performance Scale PPS Patient Status: Current PPS Ambulation: Mainly Sit/Lie PPS Activity: Unable to do normal job/work PPS Self-Care: Considerable assistance required PPS Intake: Normal or reduced PPS Conscious Level: Full or confusion Performace Scale: 50% ADLs ADL Patient Status: Current ADL Ambulation: Mainly Sit/Lie ADL Dressing: Considerable assistance required ADL Feeding: Considerable assistance required ADL Hygene/bathing: Considerable assistance required ADL Transfers: Considerable assistance required Responsive Patient Symptoms Tiredness/Fatigue: Moderate Shortness of Breath: Moderate Objective Findings Exam Vital Sign - Last Date Time Temp Pulse Resp B/P Pulse Ox O2 Delivery O2 Flow Rate FiO2 06/14/16 08:08 36.4 68 16 123/67 96 Nasal Cannula 1.00 06/08/16 20:00 30 Intake and Output 06/13/16 06/13/16 06/14/16 Cumulative From/Thru 15:00 23:00 07:00 06/04/16 12:26 - 06/14/16 06:38 Intake Total 520 ml 455 ml 85532 ml Output Total 1100 ml 450 ml 6271 ml Balance -580 ml 5 ml 85096 ml Intake Oral 400 ml 300 ml 4650 ml IV Total 120 ml 155 ml 02447 ml Output Urine Total 1100 ml 450 ml 6271 ml # Voids 1 32 # Bowel Movements 2 10 General: Alert/Oriented x3, Other (has some fantastical ideas- she tells stories of having particular thoughts and that they seem to change history) HEENT: Atraumatic Heart: Regular Rate/Rhythm (Dull to percussion at the left base. Decreased air movement at the left base. ) Lungs: Diminished Neuro: Follows Commands, Speech Extremities: No Edema Lab/Diagnostics Lab and Imaging results reviewed in detail in EMR. Patient/Family Conference Discussion/Goals of Care Discussion FAMILY UNDERSTANDING OF DISEASE: DISEASE PROGRESSION/EVIDENCE OF DECLINE: SYMPTOM BURDEN: GOALS: HOPES/WORRIES: FAMILY WISHES/VALUES: Do you want to be told truth about his illness, even if unpleasant? Does family want to know prognosis when it can be predicted, to better guide treatment decisions? What is quality of life for the patient: to be able to interact with their loved ones and friends, to travel, not to be bedbound, to be independent in taking care of themselves: Would patient choose quality of life over quantity of life? Would comfort care be more important than being awake and alert? If patient is no longer alert and aware because of their illness, would you choose comfort for them? Palliative Care counselled: Time spent Total time [45] minutes; >50% face to face with patient and/or family, providing counselling regarding plans and recommendations, and in care coordination with his/her medical teams. Rebecca Clarke MD Jun 14, 2016 09:08
[2016-06-14] MEDS ORDERED: TRIA1CAP5 PO (11:40)
[2016-06-14] MEDS ORDERED: LEVO750T39 PO (11:40)
[2016-06-14] MEDS ORDERED: METO25TA99 PO (11:40)
--- NOTE | 2016-06-14 11:48 | PCM.DC.MED ---
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 Mesfin Newman Pulmonology/critical care Dr. Thakkar Oncology Dr. Marroquin Procedures XRay, CTs & MRIs X-RAY CHEST ONE VIEW, PORTABLE 06/04/16 IMPRESSION: 1. Left pulmonary mass and probable left hilar adenopathy redemonstrated. 2. Stable right humeral lesion. Dictated by: Lilliana Aparicio M.D. on 06/04/2016 at 14:15 Approved by: Lilliana Aparicio M.D. on 06/04/2016 at 14:17 Cardiac Echo Impression Interpretation Summary The study quality was technically difficult. The patient was in atrial fibrillation with rapid ventricular response during the exam with a heart rate exceeding 100 bpm. The heart rate ranged between 122-151 bpm during the study. The left ventricular cavity is small. The left ventricle is borderline hyperdynamic. The ejection fraction is estimated to be 70-75%. LVEF is more hyperdynamic. The right ventricle grossly appears normal in size with probable normal systolic function. The IVC is dilated (diameter is greater than 2.1 cm) and it collapses less than 50% with a sniff. This suggests a high right atrial pressure of 15 mm Hg. There are large-sized bilateral pleural effusions noted. There is a bioprosthetic aortic valve. The gradients through the prosthetic aortic valve are grossly normal and within the normal range for this type of valve. No significant aortic regurgitation was visualized. No significant changes since prior study. Read by Dr. Mcclendon 06/09/16 at 15:57 Brief History Barbra Edmonds is a 86 year old female with Coronary artery, Hypertension, Stage 3 Lung cancer, Chronic Atrial fibrillation who presents to [facility] emergency department with a productive cough onset 4 days ago. Patient has had a 40+ pound weight loss over the past 6 months. She states she was seen at [facility] in January for pneumonia had a cough at that time thought to be aspiration. She has not had baseline shortness of breath orthopnea hemoptysis. End of April she again developed a cough. 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 She had a 4 cm mediastinal adenopathy as well as a 6-7 cm primary left lung mass. She has been seen by Dr. Holly in oncology. There is a plan for a repeat biopsy for more tissue and more phenotype testing but she was too short of breath and coughing when seen in radiology. She was subsequently admitted. She continues to cough up yellow sputum. I believe she was put on azithromycin as an outpatient. She is very specific on any antibiotic she takes stating that she has multiple allergies. Hospital Course 6 Barbra Edmonds is a 86 year old female with Coronary artery, Hypertension, Stage 3 Lung cancer, Chronic Atrial fibrillation who presents to [facility] emergency department with a productive cough Today the patient was seen and examined and states that she is feeling much improved. The patient is no longer having any issues. The patient has been treated for pneumonia and seems to have responded to treatment however some of her shortness of breath could potentially be coming from a progressing tumor. The patient's white blood cell count is elevated today at 15.5, however her lactic acid and procalcitonin are in normal range. The patient's white blood cell count could potentially be increasing secondary to progressive cancer and the patient has been advised to follow-up with her oncologist Dr. Holly on 06/16/2016. Viral PCR , Urine culture, Blood culture, MRSA screen, and sputum cultures were all negative Patient will be sent home on a seven-day course of Levaquin in order to complete a full 14 day course for pneumonia patient should also follow-up with her PCP within one week. 1. Acute hypercapnic respiratory failure; poa; progressive hypercapnia/hypoxia likely second to ventricular failure with advancement of lung cancer, developing pleural effusion/atelectasis - stable respiratory function, unlikely resolve this problem without therapeutic thoracentesis, however no clear benefit given her prognosis. - BiPAP as needed at night - O2 sats to be kept between 88 and 92% 2. Cough with sputum production, questionable new aspiration pneumonia; poa; Worsening over the last 2-3 months; questionably second to pneumonia but more progression of her tumor; however, procal and wbc resolving. Initially thought to be due to CAP and patient has received Cefepime for 5 days then switched zosyn. Viral resp PCR is negative; pt afebrile, blood cx negative; procalcitonin trending down. -continue Zosyn every 8 hours likely to finish 14days course, consider chg to Quinolone 3. owning/delirium/transient encephalopathy; ongoing - Seroquel did not work - Haldol 2mg IV QHS changed to prn in anticipation of SNF placement, try to avoid and aggressively reoriente if possible 4. Chronic Atrial fibrillation with rapid ventricular response. Present on admission. ongoing - Rate control -continue Metoprolol to 50mg BID and this has controlled her rate - monitor on telemetry - Elocon was left on note and EMR. It is not used for A-fib 5. Stage III [id number] squamous lung cancer; ongoing - Unfortunately the patient has significant comorbidities not a candidate for chemotherapy, radiation or surgery. - Dr. Holly is scheduled to see the patient June 16 - Palliative discussed with family and pt is now DNR/I 6. Iron deficiency anemia, chronic; present on admission; stable - Hgb around 9 - Iron replacement once able to take PO 7. Coronary artery disease - No anginal equivalent symptoms - consider repeat EKG for any chest pain 8. Bilateral pleural effusions; ongoing - Discussed case with pulmonology as patient is improving and has a known lung tumor, need for thoracentesis as questionable - No acute drop in hgb - Will continue to monitor with CXR - Acetaminophen as needed for mild pain/fever/headache - Bowel regimen as needed - Antiemetic as needed Exam Vital Signs (Last) Date Time Temp Pulse Resp B/P Pulse Ox O2 Delivery O2 Flow Rate FiO2 06/14/16 10:00 100 Nasal Cannula 1.00 06/14/16 08:08 36.4 16 123/67 96 06/08/16 20:00 30 Exam Physical Exam: GEN: Patient was awake, alert, responding appropriately to questions HEENT: PERRLA, EOMI, Neck soft supple, trachea midline, nomocephalic/atraumatic CV: Irregular, positive systolic murmur auscultated Respiratory: Decreased breath sounds bilaterally, no wheezes, rales, rhonchi GI: +bowel sounds x4, soft, compressible, non TTP EXT: no c/c/e Neuro: CN II-XII grossly intact Psych: mood and affect were appropriate Test 06/04/16 12:40 06/04/16 18:24 06/07/16 10:30 06/09/16 04:00 D-Dimer 1.1mg/L (<0.50) Urine Color Yellow (YELLOW) Urine Appearance Clear (CLEAR,HAZY) Urine pH 7.0 (5.0-8.0) Urine Specific [place] 1.010 (1.003-1.035) Urine Protein Negativemg/dL (NEG,TRACE) Urine Glucose (UA) Negativemg/dL (NEGATIVE) Urine Ketones Negativemg/dL (NEGATIVE) Urine Occult Blood Negative (NEGATIVE) Urine Nitrite Negative (NEGATIVE) Urine Bilirubin Negative (NEGATIVE) Urine Urobilinogen Normalmg/dL (NORMAL) Urine Leukocyte Esterase Negative (NEGATIVE) Urine RBC 0-2/hpf (0-2) Urine WBC 0-5/hpf (0-5) Urine Epithelial Cells Few/hpf (NONE-MOD) Urine Crystals None seen (NONE SEEN) Urine Bacteria Few/hpf (NONE-FEW) Urine Hyaline Casts None/lpf (NONE) Urine Granular Casts None seen (NONE SEEN) Urine Waxy Casts None seen (NONE SEEN) Urine Red Blood Cell Casts None seen (NONE SEEN) Urine White Blood Cell Casts None seen (NONE SEEN) Urine Mucus None seen (None Seen) Urine Trichomonas None seen (NONE SEEN) Urine Yeast None (NONE SEEN) Urinalysis Comment None Urine Culture Reflexed Not indicated Urine Legionella pneumophilia Ag Negative (Negative) Hold Jorge Top Tube Received (Received) Test 06/09/16 21:15 06/10/16 02:30 06/11/16 02:29 06/13/16 05:40 Lactic Acid Level 1.1mmol/L (0.4-2.0) Troponin T 0.010ug/L (0.0-0.011) Digoxin Level 0.7nG/mL (0.9-2.0) Procalcitonin 0.06ng/mL (0.00-0.08) Neutrophils (%) (Auto) 75.9% (40-74) Lymphocytes (%) (Auto) 8.5% (14-46) Monocytes (%) (Auto) 13.0% (4-12) Eosinophils (%) (Auto) 1.9% (0-5) Basophils (%) (Auto) 0.5% (0-3) Phosphorus Level 3.1mg/dL (2.5-4.9) Magnesium Level 1.8mg/dL (1.6-2.6) Total Bilirubin 0.4mg/dL (0.0-1.2) Aspartate Amino Transf (AST/SGOT) 12U/L (0-50) Alanine Aminotransferase (ALT/SGPT) 7U/L (0-32) Alkaline Phosphatase 75U/L (25-165) Total Protein 5.9g/dL (6.4-8.4) Albumin 3.1g/dL (3.4-5.0) Test 06/14/16 05:44 White Blood Count 15.5th/mm3 (3.8-10.1) Red Blood Count 4.15mil/mm3 (3.90-5.20) Hemoglobin 9.8g/dL (12.0-15.6) Hematocrit 34.4% (35.0-46.0) Mean Corpuscular Volume 82.9fL (81-100) Mean Corpuscular Hemoglobin 23.6pg (27.0-35.0) Mean Corpuscular Hemoglobin Concent 28.5% (32.0-37.0) Red Cell Distribution Width 14.9% (12.3-15.4) Platelet Count 436bil/L (150-400) Sodium Level 139mEq/L (134-144) Potassium Level 4.6mEq/L (3.5-5.2) Chloride Level 91mEq/L (97-108) Carbon Dioxide Level 37mmol/L (18-29) Blood Urea Nitrogen 12mg/dL (8-27) Creatinine 0.58mg/dL (0.57-1.00) Estimat Glomerular Filtration Rate 142mL/min (>59) Glucose Level 123mg/dL (60-99) Calcium Level 9.9mg/dL (8.5-10.1) Microbiology Results Laboratory Tests Test 06/14/16 05:44 White Blood Count 15.5th/mm3 (3.8-10.1) Red Blood Count 4.15mil/mm3 (3.90-5.20) Hemoglobin 9.8g/dL (12.0-15.6) Hematocrit 34.4% (35.0-46.0) Mean Corpuscular Volume 82.9fL (81-100) Mean Corpuscular Hemoglobin 23.6pg (27.0-35.0) Mean Corpuscular Hemoglobin Concent 28.5% (32.0-37.0) Red Cell Distribution Width 14.9% (12.3-15.4) Platelet Count 436bil/L (150-400) Sodium Level 139mEq/L (134-144) Potassium Level 4.6mEq/L (3.5-5.2) Chloride Level 91mEq/L (97-108) Carbon Dioxide Level 37mmol/L (18-29) Blood Urea Nitrogen 12mg/dL (8-27) Creatinine 0.58mg/dL (0.57-1.00) Estimat Glomerular Filtration Rate 142mL/min (>59) Glucose Level 123mg/dL (60-99) Calcium Level 9.9mg/dL (8.5-10.1) Microbiology 06/04/16 Blood Culture - Final, Complete NO GROWTH AFTER 5 DAYS 06/07/16 Adenovirus DNA (PCR) - Final, Complete Not Detected 06/07/16 Coronavirus 229E PCR - Final, Complete Not Detected 06/07/16 Coronavirus HKU1 PCR - Final, Complete Not Detected 06/07/16 Coronavirus NL63 PCR - Final, Complete Not Detected 06/07/16 Coronavirus OC43 PCR - Final, Complete Not Detected 06/07/16 Influenza Type A (PCR) - Final, Complete Not Detected 06/07/16 Influenza Type B (PCR) - Final, Complete Not Detected 06/07/16 Human Metapneumovirus (PCR) (NABOR) - Final, Complete Not Detected 06/07/16 Rhinovirus (PCR)(NABOR) - Final, Complete Not Detected 06/07/16 Parainfluenza Virus Type 1 (PCR) - Final, Complete Not Detected 06/07/16 Parainfluenza Virus Type 2 (PCR) - Final, Complete Not Detected 06/07/16 Parainfluenza Virus Type 3 (PCR) - Final, Complete Not Detected 06/07/16 Parainfluenza Virus Type 4 (NAAT) - Final, Complete Not Detected 06/07/16 Respiratory Syncytial Virus (PCR)NH - Final, Complete Not Detected 06/07/16 Chlamydia pneumoniae (PCR) - Final, Complete Not Detected 06/07/16 Mycoplasma pneumoniae DNA Detection - Final, Complete 06/07/16 Streptococcus pneumoniae Ag Screen - Final, Complete Discharge Medications Discharge Medications Apixaban (Eliquis) 2.5 Mg Tablet 2.5 MG PO BID (Reported) Beta-Carotene (Beta Carotene) 25,000 Unit Capsule 25,000 UNIT PO DAILY (Reported ) Cholecalciferol (Vitamin D3) (Vitamin D3) 2,000 Unit Tablet 2,000 UNIT PO DAILY (Reported) Estropipate (Estropipate) 1.5 Mg Tablet 0.75 MG PO DAILY (Reported) Levofloxacin (Levofloxacin) 750 Mg Tablet 750 MG PO DAILY Prescribed by: MARINA ESTRADA DO Metoprolol Succinate ER (Metoprolol Succinate ER) 25 Mg Tab.er.24h 50 MG PO DAILY Prescribed by: MARINA ESTRADA DO Metoprolol Tartrate (Metoprolol Tartrate) 25 Mg Tablet 25 MG PO DAILY (Reported ) Triamterene/HCTZ 37.5-25 mg (Triamterene/HCTZ 37.5-25 mg) 1 Each Capsule 1 CAPSULE PO DAILY Prescribed by: MARINA ESTRADA DO As needed Benzonatate (Benzonatate) 100 Mg Capsule 100 MG PO TID PRN PRN For Cough ( Reported) oxyCODONE-Acetaminophen 5-325 mg (oxyCODONE-Acetaminophen 5-325 mg) 1 Each Tablet 1 TAB PO TID PRN PRN For Pain (Reported) Followup Plan Disposition: stable condition Follow-up plan Follow up with PCP within one week and with Dr. Holly on 06/16/16 Discharge Diet: No restrictions Discharge Activity: No restrictions (gradually increase back to her normal daily activities) Follow-up Provider: Rock Carlson DO Follow-up with PCP in: 1 week (if an appointment has not been made please call to schedule follow-up appointment) Provider: Reese Holly DO Follow-up in: 1 week (please maintain your follow-up appointment with Dr. Holly on 06/16/2016) Time spent greater than 35 minutes copies to: Reese Holly DO; Rock Carlson Precious L DO Jun 14, 2016 11:48
--- NOTE | 2016-06-14 13:30 | NUR ---
DISCHARGE Percocet 1 tab PO has been adequate for pain relief. Tolerating liquids PO and her diet well. Denies nausea. No emesis noted. Denies SOB at this time. On O2 at 1 LPM via NC. Patient has been able to ambulate in the room with SBA. Voiding without any problems. IV saline lock d/cd. Discharge report given to Keily in [facility]. Discharged to [facility] via [facility].
[2016-06-30] MEDS ORDERED: MAGN400O4 PO (10:02)
[2016-06-30] MEDS ORDERED: BISA-67 PO (10:02)
[2016-06-30] MEDS ORDERED: NA P133E23 RC (10:02)
[2016-06-30] MEDS ORDERED: ONDA4TAB6 PO (10:03)
[2016-06-30] MEDS ORDERED: MORP15TA PO ×2 (10:03→10:38)
[2016-06-30] MEDS ORDERED: ACET325T51 PO (10:03)
== END 2016-06-14 13:30 | DRG 189 ==
LOC: SED 12:13 → PCC 14:36 → CCU 06-07 05:48 → PCC 06-08 08:59 → OSC 06-11 17:54
PROVIDERS: ADMIT Hospitalist; ATTEND Hospitalist
PROC: 5A09357 Assistance with Respiratory Ventilation, Less than 24 Consecutive Hours, Continuous Positive Airway Pressure (ICD-10-PCS; principal; 2016-06-07)
PROC: 4A033R1 Measurement of Arterial Saturation, Peripheral, Percutaneous Approach (ICD-10-PCS; 2016-06-07)
DX: J96.02 Acute respiratory failure with hypercapnia (principal); G93.49 Other encephalopathy; C34.12 Malignant neoplasm of upper lobe, left bronchus or lung; J90 Pleural effusion, not elsewhere classified; I48.2 Chronic atrial fibrillation; Z79.01 Long term (current) use of anticoagulants; Z95.2 Presence of prosthetic heart valve; Z87.891 Personal history of nicotine dependence; I25.10 Atherosclerotic heart disease of native coronary artery without angina pectoris; J96.01 Acute respiratory failure with hypoxia; D50.9 Iron deficiency anemia, unspecified; Z66 Do not resuscitate